=== PATIENT | male | born 1960 | race Caucasian/White ===

== ENCOUNTER 2020-08-25 21:18 | Inpatient (IN) ==
[2020-08-25] MEDS ORDERED: SODIUM CHLORIDE 0.9% 1000ML 1,000 ML IV STA (22:05)
[2020-08-25] MEDS ORDERED: ASPIRIN CHEW 324 MG PO STA (22:05)
[2020-08-25 22:16] LABS: Basophils # (auto) 0.02 K/uL (0-0.2); Basophils % (auto) 0.2 %; Eosinophils # (auto) 0.19 K/uL (0-0.5); Eosinophils % (auto) 2.3 %; Hematocrit (blood only) 47.8 % (42-52); Hemoglobin 16.6 g/dL (14.0-18.0); Immature Granulocytes # (auto) 0.03 K/uL (0.00-0.02); Immature Granulocytes % (auto) 0.4 %; Lymphocytes # (auto) 2.19 K/uL (1.2-3.4); Lymphocytes % (auto) 26.5 %; Mean Corpuscular Hemoglobin 34.4 pg (25-34); Mean Corpuscular Hgb Conc 34.7 g/dL (32-36); Mean Platelet Volume 11.5 fL (7.4-10.4); Monocytes % (auto) 7.3 %; Neutrophils # (auto) 5.22 K/uL (1.4-6.5); Neutrophils % (auto) 63.3 %; Platelet Count 210 K/uL (130-400); RDW Coefficient of Variation 13.7 % (11.5-14.5); RDW Standard Deviation 49.2 fL (36.4-46.3); Red Blood Count 4.83 M/uL (4.7-6.1); White Blood Count 8.25 K/uL (4.8-10.8)
[2020-08-25 22:32] LABS: Blood Urea Nitrogen 18 mg/dl (7-18); Calcium 8.7 mg/dl (8.5-10.1); Carbon Dioxide 22 mmol/L (21-32); Chloride 102 mmol/L (98-107); Est GFR (African American) 95.4 ml/min; Est GFR (Non-African American) 82.3 ml/min; Glucose 153 mg/dl (70-99); Lipase 149 U/L (73-393); Sodium 135 mmol/L (136-145); Troponin I < 0.015 ng/ml (0-0.045)
[2020-08-25 22:38] LABS: D Dimer 320 ug/L FEU (0-500); Partial Thromboplastin Time 26.5 Seconds (21.0-31.0)
[2020-08-25] MEDS ORDERED: dilTIAZem HCl 5 MG/ML 5 ML VIAL IV ONE (22:47)
[2020-08-25 22:48] LABS: Prothrombin Time 10.2 Seconds (9.0-12.0)
[2020-08-25] MEDS ORDERED: STAT IV Infusion **Titration per Protocol STA (22:52)
[2020-08-25] MEDS ORDERED: dilTIAZem HCL 125 MG in DEXTROSE 5% 100 ML IV SCH (23:00)
[2020-08-25 23:27] LABS: Potassium 3.7 mmol/L (3.5-5.1)
[2020-08-25] MEDS ORDERED: SODIUM CHLORIDE 0.9% 1000ML 1,000 ML IV SCH (23:44)
[2020-08-25] MEDS ORDERED: POTASSIUM CHLORIDE CRTAB 20 MEQ TABCR PO STA (23:45)
--- NOTE | 2020-08-25 23:47 | History & Physical Report ---
Date of Service August 25, 2020 Assessment & Plan (1) Atrial fibrillation with RVR: New onset atrial fibrillation with RVR- The patient will be admitted to telemetry for serial cardiac enzymes, serial EKG's, cardiac rhythm monitoring and a 2-D echocardiogram with Dopplers. Given a total of 2 L normal saline. Given Klor-Con 40 mEq p.o. Given magnesium sulfate 2 g IV Given metoprolol succinate 25 mg p.o. x1 in the ED and then 25 mg p.o. every morning Follow serial BMP and magnesium levels Patient did convert to normal sinus rhythm Patient and would like him seen by cardiology Dr. Albright Present on Admission?: Yes (2) Dehydration: Significantly improved after 2 L normal saline Present on Admission?: Yes (3) Hyperglycemia: Glucose 153 upon admission. Check hemoglobin A1c and a fasting lipid panel Present on Admission?: Yes (4) Hypomagnesemia: Replacing with IV as noted above Present on Admission?: Yes History of Present Illness Chief Complaint: The patient presents to the emergency department with left parasternal nonradiating chest discomfort that began suddenly around 730 this evening while at rest. Primary Care Provider: NO PCP The patient is a 60-year-old male who does not routinely seek medical care, who presents to the emergency department with symptoms as noted above. In the emergency department, patient was found to be in atrial fibrillation with RVR, and was given Cardizem 25 mg IV bolus, normal saline 1 L bolus. He was then referred for evaluation for admission. Allergies Allergy/AdvReac Type Severity Reaction Status Date / Time [id number] Allergy Unknown Uncoded 10/02/02 19:17 Home Medications Medication Instructions Recorded Confirmed Type ibuprofen 600 mg PO Q6H PRN 08/25/20 08/25/20 History melatonin 5 mg PO HS PRN 08/25/20 08/25/20 History Past Med/Surg History Medical History (Updated 08/26/20 @ 03:18 by Sathish Bethea MD) No pertinent family history No pertinent past medical history Surgical History (Updated 08/26/20 @ 01:14 by Manuel Hess) No pertinent past surgical history Social History (Updated 08/26/20 @ 01:21 by Manuel Hess) Smoking Status: Former smoker Cigarettes Per Day: 20; Second Hand Exposure: Yes; Do You Dip or Chew Tobacco: No; Tobacco Cessation Education Requested by Patient: No Hx Alcohol Use: Yes Alcohol type: beer Alcohol Intake Frequency Comment: 6 beers/day Hx Substance Use: No Preferred Language: Wolof Communication Ability: Effective [employer] Required: No Beliefs That Will Affect Care: None Current Living Situation: Spouse Other Information That Helps Us Care for You: No Feels Safe at Home: Yes Safety Concerns: Feels Safe At This Time Assistive Devices: Glasses Review of Systems Review of Systems: The patient denies palpitations, shortness of breath, dyspnea on exertion, cough, lower extremity swelling, sore throat, fevers, chills, sweats, weight change, fatigue, nausea, vomiting, diarrhea , constipation, abdominal pain, pelvic pain, blood in urine or stool, dysuria, urinary frequency or urgency, lightheadedness, dizziness, headache, memory loss, loss of consciousness, rash, abnormal bruising or bleeding, imbalance, focal or generalized weakness, numbness or tingling in arms or legs, generalized arthralgias or myalgias, back or neck pain, or night sweats. The review of systems is otherwise negative other than for that already noted above, and at least 10 systems have been reviewed. Physical Exam Physical Exam: The patient is awake, alert and oriented 3, well developed and well nourished, normocephalic and atraumatic, lying in bed and in no acute distress. HEENT--PERRL, EOMI, mucous membranes and oropharynx dry. Neck--supple. No JVD. No bruits. Thyroid normal, trachea midline, no adenopathy. Heart--irregularly irregular. No murmurs, rubs or gallops. Lungs--clear bilaterally, no respiratory distress, no accessory muscle use. Abdomen--normal bowel sounds and soft. Nontender. Nondistended. Morbidly obese Extremities--no cyanosis or clubbing. No edema. Dermatologic--normal skin turgor, normal color, no abnormal lymph nodes, no rash. Neurologic--cranial nerves II through XII grossly intact. Rheumatologic--normal range of motion. Psychiatric--normal affect. Results & Data Results & Data ([facility]) Vital Signs (Past 12 Hours) Vital Signs Temp Pulse Pulse Resp BP BP Pulse Ox 08/25/20 23:18 115 H 20 116/64 92 08/25/20 23:01 124 H 16 98/66 L 93 08/25/20 22:49 140 H 27 H 138/91 93 08/25/20 22:31 136 H 21 147/57 H 94 08/25/20 22:30 147 H 23 94 08/25/20 22:20 137 H 26 H 93 08/25/20 22:10 151 H 23 92 08/25/20 22:01 141 H 24 92 08/25/20 22:00 141 H 16 131/75 91 08/25/20 21:50 142 H 19 95 08/25/20 21:41 145 H 23 127/86 94 08/25/20 21:40 151 H 24 94 08/25/20 21:34 147 H 23 08/25/20 21:21 98.4 F 122 H 19 118/66 91 Laboratory Results Laboratory Results WBC 8.25 K/uL (4.8-10.8) 08/25/20 21:39 RBC 4.83 M/uL (4.7-6.1) 08/25/20 21:39 Hgb 16.6 g/dL (14.0-18.0) 08/25/20 21:39 Hct 47.8 % (42-52) 08/25/20 21:39 MCV 99.0 fL (80-100) 08/25/20 21:39 MCH 34.4 pg (25-34) H 08/25/20 21:39 MCHC 34.7 g/dL (32-36) 08/25/20 21:39 RDW Std Deviation 49.2 fL (36.4-46.3) H 08/25/20 21:39 RDW Coeff of Yaima 13.7 % (11.5-14.5) 08/25/20 21:39 Plt Count 210 K/uL (130-400) 08/25/20 21:39 MPV 11.5 fL (7.4-10.4) H 08/25/20 21:39 Immature Gran % (Auto) 0.4 % 08/25/20 21:39 Neut % (Auto) 63.3 % 08/25/20 21:39 Lymph % (Auto) 26.5 % 08/25/20 21:39 [place] % (Auto) 7.3 % 08/25/20 21:39 Eos % (Auto) 2.3 % 08/25/20 21:39 Baso % (Auto) 0.2 % 08/25/20 21:39 Neut # (Auto) 5.22 K/uL (1.4-6.5) 08/25/20 21:39 Lymph # (Auto) 2.19 K/uL (1.2-3.4) 08/25/20 21:39 [place] # (Auto) 0.60 K/uL (0.11-0.59) H 08/25/20 21:39 Eos # (Auto) 0.19 K/uL (0-0.5) 08/25/20 21:39 Baso # (Auto) 0.02 K/uL (0-0.2) 08/25/20 21:39 Immature Gran # (Auto) 0.03 K/uL (0.00-0.02) H 08/25/20 21:39 PT 10.2 Seconds (9.0-12.0) 08/25/20 21:39 INR 1.0 (0.9-1.1) 08/25/20 21:39 APTT 26.5 Seconds (21.0-31.0) 08/25/20 21:39 PTT Ratio 1.0 08/25/20 21:39 D-Dimer 320 ug/L FEU (0-500) 08/25/20 21:39 Sodium 135 mmol/L (136-145) L 08/25/20 21:39 Potassium 3.7 mmol/L (3.5-5.1) 08/25/20 22:39 Chloride 102 mmol/L (98-107) 08/25/20 21:39 Carbon Dioxide 22 mmol/L (21-32) 08/25/20 21:39 Anion Gap 11.0 (3-11) 08/25/20 21:39 BUN 18 mg/dl (7-18) 08/25/20 21:39 Creatinine 0.98 mg/dl (0.6-1.4) 08/25/20:39 Est Cr Clr Drug Dosing 96.0 ml/min 08/25/20 21:39 Est GFR ( Amer) 95.4 ml/min 08/25/20 21:39 Est GFR (Non-Af Amer) 82.3 ml/min 08/25/20 21:39 BUN/Creatinine Ratio 18.0 (10-20) 08/25/20 21:39 Glucose 153 mg/dl (70-99) H 08/25/20 21:39 Calcium 8.7 mg/dl (8.5-10.1) 08/25/20 21:39 Magnesium Cancelled 08/25/20 23:33 Total Bilirubin Cancelled 08/25/20 23:33 Direct Bilirubin Cancelled 08/25/20 23:33 AST Cancelled 08/25/20 23:33 ALT Cancelled 08/25/20 23:33 Alkaline Phosphatase Cancelled 08/25/20 23:33 Troponin I < 0.015 ng/ml (0-0.045) 08/25/20 21:39 Total Protein Cancelled 08/25/20 23:33 Albumin Cancelled 08/25/20 23:33 Lipase 149 U/L (73-393) 08/25/20 21:39 Specimen Hemolysis 08/25/20 22:39 COVID-19 Eval Order Covid19 at [facility] 08/26/20 00:00 SARS-CoV-2 (PCR) NEGATIVE (Negative) 08/26/20 00:00 Code Status & VTE Plan Code Status Full code VTE Prophylaxis Plan VTE Prophylaxis will be ordered: Yes PG Care Time/CCT Total # of Minutes Spent Total Time Spent with Patient: Total time spent is greater than 50% in coordi nation of care (as documented) at patient's floor/unit and/or counseling patient: Coding Level of Care Code 76207 Initial Inpt Care Lvl 3 Diagnoses Atrial fibrillation with RVR I48.91 Dehydration E86.0 Hyperglycemia R73.9 Hypomagnesemia E83.42
[2020-08-26] MEDS ORDERED: METOPROLOL SUCC 25MG EXT REL TAB PO STA (00:04)
[2020-08-26] MEDS ORDERED: METOPROLOL TARTRATE 1 MG/ML VIAL IV PRN (00:04)
[2020-08-26 00:30] LABS: Albumin Level 3.4 gm/dl (3.4-5.0); Bilirubin,Total 0.2 mg/dl (0.2-1); Magnesium 1.7 mg/dl (1.8-2.4); Total Protein 6.6 gm/dl (6.4-8.2)
--- NOTE | 2020-08-26 01:10 | Emergency Department Note ---
History of Present Illness General Chief Complaint: Chest Pain Stated Complaint: CHEST PAINS Time Seen by Provider: 08/25/20 22:05 History of Present Illness Provider Complaint: chest pain Time: 19:30 Duration: intermittent Onset: during rest Pain Location: substernal Pain Radiation: neck Severity: moderate Maximum Pain Intensity: 7 Current Pain Intensity: 7 Quality: + heaviness Relieved By: + nothing Exacerbated By: + nothing Context: no recent illness, no recent surgery, no recent immobilization, no recent travel, no trauma/injury, no new medications and no history of DVT/PE Associated symptoms: no nausea, no vomiting, no diaphoresis, no dyspnea, no syncope, no palpitations, no fever, no cough and no leg swelling Home Medications Medication Instructions Recorded Confirmed Type ibuprofen 600 mg PO Q6H PRN 08/25/20 08/25/20 History melatonin 5 mg PO HS PRN 08/25/20 08/25/20 History Allergies Allergy/AdvReac Type Severity Reaction Status Date / Time [id number] Allergy Unknown Uncoded 10/02/02 19:17 Past Med/Surg History Medical History (Updated 08/26/20 @ 01:24 by Manuel Hess) No pertinent family history No pertinent past medical history Surgical History (Updated 08/26/20 @ 01:14 by Manuel Hess) No pertinent past surgical history Social History (Updated 08/26/20 @ 01:21 by Manuel Hess) Smoking Status: Current every day smoker Hx Alcohol Use: Yes Alcohol type: beer Alcohol Intake Frequency Comment: 6 beers/day Feels Safe at Home: Yes Review of Systems A total of 10 systems reviewed and were otherwise negative Physical Exam Vital Signs Vital Signs - 24 hr 08/25/20 21:21 08/25/20 21:34 08/25/20 21:40 Temperature 36.9 C Temperature Source Temporal Artery Scan Pulse Rate 122 H 147 H 151 H Pulse Rate [Apical] Pulse Rate from SpO2 Sensor 150 H Pulse Rhythm [Apical] Respiratory Rate 19 23 24 Respiratory Effort / Characteristics Non-Labored Respiratory Depth Normal Blood Pressure 118/66 Blood Pressure [Right Arm] Blood Pressure Mean 83 Blood Pressure Mean [Right Arm] Blood Pressure Position [Right Arm] Pulse Oximetry 91 94 Oxygen Delivery Method Room Air Sepsis Recent Fever Within 48 Hours No Sepsis New/Unexplained Change in Mental Status N/A Sepsis Action Taken by Nursing No Action Required 08/25/20 21:41 08/25/20 21:50 08/25/20 22:00 Temperature Temperature Source Pulse Rate 145 H 142 H 141 H Pulse Rate [Apical] Pulse Rate from SpO2 Sensor 118 H 134 H 130 H Pulse Rhythm [Apical] Respiratory Rate 23 19 16 Respiratory Effort / Characteristics Respiratory Depth Blood Pressure 127/86 131/75 Blood Pressure [Right Arm] Blood Pressure Mean 99 93 Blood Pressure Mean [Right Arm] Blood Pressure Position [Right Arm] Pulse Oximetry 94 95 91 Oxygen Delivery Method Sepsis Recent Fever Within 48 Hours Sepsis New/Unexplained Change in Mental Status Sepsis Action Taken by Nursing 08/25/20 22:01 08/25/20 22:10 08/25/20 22:20 Temperature Temperature Source Pulse Rate 141 H 151 H 137 H Pulse Rate [Apical] Pulse Rate from SpO2 Sensor 97 H 117 H 122 H Pulse Rhythm [Apical] Respiratory Rate 24 23 26 H Respiratory Effort / Characteristics Respiratory Depth Blood Pressure Blood Pressure [Right Arm] Blood Pressure Mean Blood Pressure Mean [Right Arm] Blood Pressure Position [Right Arm] Pulse Oximetry 92 92 93 Oxygen Delivery Method Sepsis Recent Fever Within 48 Hours Sepsis New/Unexplained Change in Mental Status Sepsis Action Taken by Nursing 08/25/20 22:27 08/25/20 22:30 08/25/20 22:31 Temperature Temperature Source Pulse Rate 147 H 136 H Pulse Rate [Apical] Pulse Rate from SpO2 Sensor 101 H Pulse Rhythm [Apical] Respiratory Rate 23 21 Respiratory Effort / Characteristics Respiratory Depth Normal Blood Pressure 147/57 H Blood Pressure [Right Arm] Blood Pressure Mean 87 Blood Pressure Mean [Right Arm] Blood Pressure Position [Right Arm] Pulse Oximetry 94 94 Oxygen Delivery Method Room Air Sepsis Recent Fever Within 48 Hours Sepsis New/Unexplained Change in Mental Status Sepsis Action Taken by Nursing 08/25/20 22:49 08/25/20 23:01 08/25/20 23:18 Temperature Temperature Source Pulse Rate 140 H 124 H 115 H Pulse Rate [Apical] 115 H Pulse Rate from SpO2 Sensor Pulse Rhythm [Apical] Respiratory Rate 27 H 16 20 Respiratory Effort / Characteristics Respiratory Depth Blood Pressure 138/91 98/66 L 116/64 Blood Pressure [Right Arm] 116/64 Blood Pressure Mean 106 76 81 Blood Pressure Mean [Right Arm] 81 Blood Pressure Position [Right Arm] Standing Pulse Oximetry 93 93 94 Oxygen Delivery Method Room Air Sepsis Recent Fever Within 48 Hours Sepsis New/Unexplained Change in Mental Status Sepsis Action Taken by Nursing 08/25/20 23:30 08/26/20 00:00 08/26/20 00:31 Temperature Temperature Source Pulse Rate 125 H 134 H 128 H Pulse Rate [Apical] Pulse Rate from SpO2 Sensor Pulse Rhythm [Apical] Respiratory Rate 21 21 20 Respiratory Effort / Characteristics Respiratory Depth Blood Pressure 106/86 132/80 88/50 L Blood Pressure [Right Arm] Blood Pressure Mean 92 97 62 Blood Pressure Mean [Right Arm] Blood Pressure Position [Right Arm] Pulse Oximetry 93 93 93 Oxygen Delivery Method Room Air Sepsis Recent Fever Within 48 Hours Sepsis New/Unexplained Change in Mental Status Sepsis Action Taken by Nursing 08/26/20 00:47 08/26/20 01:09 Temperature Temperature Source Pulse Rate Pulse Rate [Apical] 136 H 74 Pulse Rate from SpO2 Sensor Pulse Rhythm [Apical] Regular Respiratory Rate 20 Respiratory Effort / Characteristics Respiratory Depth Blood Pressure Blood Pressure [Right Arm] 99/64 L 118/73 Blood Pressure Mean Blood Pressure Mean [Right Arm] 75 88 Blood Pressure Position [Right Arm] Pulse Oximetry 92 Oxygen Delivery Method Room Air Sepsis Recent Fever Within 48 Hours Sepsis New/Unexplained Change in Mental Status Sepsis Action Taken by Nursing Physical Exam GENERAL: He is oriented to person, place, and time. He appears well-developed and well-nourished. He does not appear distressed. HENT: Exam performed. - Head: Normocephalic and atraumatic. - Right Ear: External ear normal. No mastoid tenderness. - Left Ear: External ear normal. No mastoid tenderness. - Mouth/Throat: The oropharynx is clear and moist. No trismus in the jaw. No dental abscesses or uvula swelling. No oropharyngeal exudate or tonsillar abscesses. EYES: Conjunctivae and EOM are normal. Pupils are equal, round, and reactive to light. Right eye exhibits no discharge. Left eye exhibits no discharge. No scleral icterus. NECK: Normal range of motion. Neck supple. No JVD present. No spinous process tenderness present. No carotid bruit present. No rigidity. No tracheal deviation and normal range of motion present. No Brudzinski's sign and no Kernig's sign noted. CV: Tachycardic rate, irregular rhythm, normal heart sounds and intact distal pulses. There is no peripheral edema. Palpable radial pulses bue. PULM/CHEST: Effort normal and breath sounds normal. No respiratory distress. No stridor. He has no wheezes. He has no rales. - Chest Wall: He exhibits no tenderness. ABD: The abdomen is soft. Bowel sounds are normal. He has no distension. No mass is present. There is no tenderness. There is no rebound, no guarding, no Reyes's sign and no tenderness at McBurney's point. Rovsig negative. MUSC/SKEL: Normal range of motion. There is no peripheral edema, tenderness or deformity. LYMPH: No cervical adenopathy. NEURO: He is alert and oriented to person, place, and time. He has normal strength. No cranial nerve deficit or sensory deficit. Coordination and gait normal. GCS eye subscore is 4. GCS verbal subscore is 5. GCS motor subscore is 6. Cerebellar tests wnl. SKIN: Skin is warm and dry. He is not diaphoretic. PSYCH: He has a normal mood and affect. Behavior is normal. Judgment and thought content normal. Course Course 2249: The patient was evaluated in room B4. A complete history and physical exam was performed. Patient was seen during a period of extremely high volume and acuity during the COVID- pandemic. Triage protocols were initiated. Cardiac monitoring: An order was placed for continuous cardiac monitoring. The monitor shows a rate of 130-150 with atrial fibrillation rhythm Cardizem 20 mg IV bolus was given which improved the patient's ventricular rate. Patient was started on Cardizem drip. CHADS2 score less than 2. Aspirin given to the patient. Patient has no history of atrial fibrillation and states that he has not seen a doctor in more than 12 years. [facility]. Administered Medications Discontinued Medications Aspirin (Aspirin Chew 324 Mg) 324 mg PO NOW STA Stop: 08/25/20 22:06 Last Admin: 08/25/20 22:27 Dose: 324 mg Documented by: [id number] Diltiazem HCl (Diltiazem Hcl 5 Mg/Ml 5 Ml Vial) Confirm Administered Dose 25 mg IV .STK-MED ONE Stop: 08/25/20 22:48 Last Increment: 08/25/20 22:55 Dose: 20 mg Documented by: [id number] Cosigned by: [id number] Sodium Chloride (Nss 1000ml) 1,000 mls @ 999 mls/hr IV .Q1H1M STA Stop: 08/25/20 23:05 Last Infusion: 08/25/20 23:27 Dose: 0 mls/hr Documented by: [id number] Admin: 08/25/20 22:27 Dose: 999 mls/hr Documented by: [id number] Diltiazem HCl 125 mg/ Dextrose 125 mls @ 5 mls/hr IV .Q24H CHRISTOPHER; Protocol Stop: 09/24/20 22:59 Last Admin: 08/25/20 23:20 Dose: Not Given Documented by: [id number] Sodium Chloride (Nss 1000ml) 1,000 mls @ 999 mls/hr IV .Q1H1M CHRISTOPHER Stop: 08/26/20 00:44 Last Admin: 08/26/20 00:03 Dose: 999 mls/hr Documented by: [id number] Metoprolol Succinate (Metoprolol Succ 25mg Ext Rel Tab) 25 mg PO NOW STA Stop: 08/26/20 00:05 Last Admin: 08/26/20 00:22 Dose: 25 mg Documented by: [id number] Miscellaneous (Stat Iv Infusion Titration Per Protocol) 1 ea N/A NOW STA Stop: 08/25/20 22:53 Last Admin: 08/25/20 23:20 Dose: Not Given Documented by: [id number] Potassium Chloride (Potassium Chloride Crtab 20 Meq Tabcr) 40 meq PO NOW STA Stop: 08/25/20 23:46 Last Admin: 08/26/20 00:11 Dose: 40 meq Documented by: [id number] Medical Decision Making Laboratory Data Result diagrams: 08/25/20 21:39 08/25/20 22:39 Labs: Lab Results 08/25/20 08/25/20 08/25/20 Range/Units 21:39 21:39 21:39 WBC 8.25 (4.8-10.8) K/uL RBC 4.83 (4.7-6.1) M/uL Hgb 16.6 (14.0-18.0) g/dL Hct 47.8 (42-52) % MCV 99.0 (80-100) fL MCH 34.4 H (25-34) pg MCHC 34.7 (32-36) g/dL RDW Std Deviation 49.2 H (36.4-46.3) fL RDW Coeff of Yaima 13.7 (11.5-14.5) % Plt Count 210 (130-400) K/uL MPV 11.5 H (7.4-10.4) fL Immature Gran % (Auto) 0.4 % Neut % (Auto) 63.3 % Lymph % (Auto) 26.5 % Day % (Auto) 7.3 % Eos % (Auto) 2.3 % Baso % (Auto) 0.2 % Neut # (Auto) 5.22 (1.4-6.5) K/uL Lymph # (Auto) 2.19 (1.2-3.4) K/uL Day # (Auto) 0.60 H (0.11-0.59) K/uL Eos # (Auto) 0.19 (0-0.5) K/uL Baso # (Auto) 0.02 (0-0.2) K/uL Immature Gran # (Auto) 0.03 H (0.00-0.02) K/uL PT 10.2 (9.0-12.0) Seconds INR 1.0 (0.9-1.1) APTT 26.5 (21.0-31.0) Seconds PTT Ratio 1.0 D-Dimer 320 (0-500) ug/L FEU Sodium 135 L (136-145) mmol/L Potassium (3.5-5.1) mmol/L Chloride 102 (98-107) mmol/L Carbon Dioxide 22 (21-32) mmol/L Anion Gap 11.0 (3-11) BUN 18 (7-18) mg/dl Creatinine 0.98 (0.6-1.4) mg/dl Est Cr Clr Drug Dosing 96.0 ml/min Est GFR ( Amer) 95.4 ml/min Est GFR (Non-Af Amer) 82.3 ml/min BUN/Creatinine Ratio 18.0 (10-20) Glucose 153 H (70-99) mg/dl Calcium 8.7 (8.5-10.1) mg/dl Magnesium (1.8-2.4) mg/dl Total Bilirubin (0.2-1) mg/dl Direct Bilirubin (0-0.2) mg/dl AST (15-37) U/L ALT (12-78) U/L Alkaline Phosphatase (45-117) U/L Troponin I < 0.015 (0-0.045) ng/ml Total Protein (6.4-8.2) gm/dl Albumin (3.4-5.0) gm/dl Lipase 149 (73-393) U/L Specimen Hemolysis COVID-19 Eval Order SARS-CoV-2 (PCR) (Negative) 08/25/20 08/25/20 08/26/20 Range/Units 22:39 23:33 00:00 WBC (4.8-10.8) K/uL RBC (4.7-6.1) M/uL Hgb (14.0-18.0) g/dL Hct (42-52) % MCV (80-100) fL MCH (25-34) pg MCHC (32-36) g/dL RDW Std Deviation (36.4-46.3) fL RDW Coeff of Yaima (11.5-14.5) % Plt Count (130-400) K/uL MPV (7.4-10.4) fL Immature Gran % (Auto) % Neut % (Auto) % Lymph % (Auto) % Day % (Auto) % Eos % (Auto) % Baso % (Auto) % Neut # (Auto) (1.4-6.5) K/uL Lymph # (Auto) (1.2-3.4) K/uL Day # (Auto) (0.11-0.59) K/uL Eos # (Auto) (0-0.5) K/uL Baso # (Auto) (0-0.2) K/uL Immature Gran # (Auto) (0.00-0.02) K/uL PT (9.0-12.0) Seconds INR (0.9-1.1) APTT (21.0-31.0) Seconds PTT Ratio D-Dimer (0-500) ug/L FEU Sodium (136-145) mmol/L Potassium 3.7 (3.5-5.1) mmol/L Chloride (98-107) mmol/L Carbon Dioxide (21-32) mmol/L Anion Gap (3-11) BUN (7-18) mg/dl Creatinine (0.6-1.4) mg/dl Est Cr Clr Drug Dosing ml/min Est GFR ( Amer) ml/min Est GFR (Non-Af Amer) ml/min BUN/Creatinine Ratio (10-20) Glucose (70-99) mg/dl Calcium (8.5-10.1) mg/dl Magnesium 1.7 L Cancelled (1.8-2.4) mg/dl Total Bilirubin 0.2 Cancelled (0.2-1) mg/dl Direct Bilirubin Cancelled (0-0.2) mg/dl AST 23 Cancelled (15-37) U/L ALT 47 Cancelled (12-78) U/L Alkaline Phosphatase 70 Cancelled (45-117) U/L Troponin I (0-0.045) ng/ml Total Protein 6.6 Cancelled (6.4-8.2) gm/dl Albumin 3.4 Cancelled (3.4-5.0) gm/dl Lipase (73-393) U/L Specimen Hemolysis COVID-19 Eval Order Covid19 at [facility] SARS-CoV-2 (PCR) (Negative) 08/26/20 Range/Units 00:00 WBC (4.8-10.8) K/uL RBC (4.7-6.1) M/uL Hgb (14.0-18.0) g/dL Hct (42-52) % MCV (80-100) fL MCH (25-34) pg MCHC (32-36) g/dL RDW Std Deviation (36.4-46.3) fL RDW Coeff of Yaima (11.5-14.5) % Plt Count (130-400) K/uL MPV (7.4-10.4) fL Immature Gran % (Auto) % Neut % (Auto) % Lymph % (Auto) % Day % (Auto) % Eos % (Auto) % Baso % (Auto) % Neut # (Auto) (1.4-6.5) K/uL Lymph # (Auto) (1.2-3.4) K/uL Day # (Auto) (0.11-0.59) K/uL Eos # (Auto) (0-0.5) K/uL Baso # (Auto) (0-0.2) K/uL Immature Gran # (Auto) (0.00-0.02) K/uL PT (9.0-12.0) Seconds INR (0.9-1.1) APTT (21.0-31.0) Seconds PTT Ratio D-Dimer (0-500) ug/L FEU Sodium (136-145) mmol/L Potassium (3.5-5.1) mmol/L Chloride (98-107) mmol/L Carbon Dioxide (21-32) mmol/L Anion Gap (3-11) BUN (7-18) mg/dl Creatinine (0.6-1.4) mg/dl Est Cr Clr Drug Dosing ml/min Est GFR ( Amer) ml/min Est GFR (Non-Af Amer) ml/min BUN/Creatinine Ratio (10-20) Glucose (70-99) mg/dl Calcium (8.5-10.1) mg/dl Magnesium (1.8-2.4) mg/dl Total Bilirubin (0.2-1) mg/dl Direct Bilirubin (0-0.2) mg/dl AST (15-37) U/L ALT (12-78) U/L Alkaline Phosphatase (45-117) U/L Troponin I (0-0.045) ng/ml Total Protein (6.4-8.2) gm/dl Albumin (3.4-5.0) gm/dl Lipase (73-393) U/L Specimen Hemolysis COVID-19 Eval Order SARS-CoV-2 (PCR) NEGATIVE (Negative) Imaging Data Chest x-ray: My impression: Chest x-ray negative. Airway clear. No pneumothorax. No consolidation. No cardiomegaly or cephalization.. No free air under the diaphragm. No fractures of the skeletal structures. ECG Data Additional Comments: EKG #1 at 2123: Atrial fibrillation with a rate of 145. QRS and QTc intervals within normal limits. No ST elevation or ST depression. EKG #2 at 2255 status post 20 mg IV Cardizem bolus: Atrial fibrillation with rate of 118. QRS and QTc intervals within normal limits. No ST elevation or ST depression. MDM Narrative The patient was evaluated in room B4. A complete history and physical exam was performed. Patient was seen during a period of extremely high volume and acuity during the COVID- pandemic. Triage protocols were initiated. Cardiac monitoring: An order was placed for continuous cardiac monitoring. The monitor shows a rate of 130-150 with atrial fibrillation rhythm Cardizem 20 mg IV bolus was given which improved the patient's ventricular rate. Patient was started on Cardizem drip. CHADS2 score less than 2. Aspirin given to the patient. Patient has no history of atrial fibrillation and states that he has not seen a doctor in more than 12 years. [facility]. Impression & Plan Atrial fibrillation with RVR Critical Care Time Critical Care Time: Yes Total Critical Care Time: 45 I have personally spent greater than 45 minutes of critical care time in the direct management of this patient. This includes bedside care, interpretation of diagnostic studies, and testing, discussion with consultants, patient, and family members, and other required patient management activities. This 45 minutes is in excess of all separately billable procedures. Discharge Plan Visit Data Chief Complaint: Chest Pain Stated Complaint: CHEST PAINS ED Provider: Manuel Hess Discharge Problem: Atrial fibrillation with RVR Patient Disposition: Admitted As Inpatient Forms Stand Alone Forms: My [facility] Prescriptions Prescriptions: No Action ibuprofen 200 mg Tablet 600 mg PO Q6H PRN (Reason: Pain) RF: 0 melatonin 5 mg Tablet 5 mg PO HS PRN (Reason: Sleep) RF: 0 Referrals Referrals: PCP,NO [Primary Care Provider] -
[2020-08-26] MEDS ORDERED: MELATONIN 3 MG TAB PO PRN (02:28)
[2020-08-26] MEDS ORDERED: ACETAMINOPHEN 325 MG TAB PO PRN (02:28)
[2020-08-26] MEDS ORDERED: ONDANSETRON INJ 2 MG/ML 2 ML VIAL IV PRN (02:28)
[2020-08-26] MEDS: MAGNESIUM SULFATE / D5W 1 GM/100 ML BAG IV SCH ×2 (04:20→06:24)
[2020-08-26 06:31] LABS: Estimated Average Glucose 123 mg/dl; Hemoglobin A1C 5.9 % (4.5-5.6)
[2020-08-26 06:52] LABS: Chol HDL Ratio 7; Cholesterol 175 mg/dl (0-200); HDL Cholesterol 27 mg/dl; Triglycerides 514 mg/dl (0-150)
--- NOTE | 2020-08-26 08:36 | XRay Report ---
XR chest 1V portable HISTORY: Atypical Chest Pain COMPARISON: None. FINDINGS: Cardiac silhouette is mildly enlarged. There are low lung volumes. No pneumothorax. No pleu ral effusions. There is mild central pulmonary vascular congestion without overt edema. No focal lung consolidations to suggest pneumonia. IMPRESSION: Mild cardiomegaly with mild congestive change. ACT 112: Negative or not required by law. Electronically signed by: Christopher Eckert M.D. 08/26/2020 8:35 AM
[2020-08-26] MEDS ORDERED: ASPIRIN 81 MG ECTAB PO SCH (09:00)
[2020-08-26] MEDS ORDERED: METOPROLOL SUCC 25MG EXT REL TAB PO SCH (09:00)
--- NOTE | 2020-08-26 11:01 | XCELERA ---
[id number]
--- NOTE | 2020-08-26 12:01 | Cardiology Consultation ---
Date of Consultation August 26, 2020 Assessment & Plan (1) Atrial fibrillation with RVR: The etiology of his atrial fibrillation is unclear. While he does not have a diagnosis of hypertension, he has not actually seen a doctor in several years. It will be important to monitor his blood pressure going forward. He certainly could have occult sleep apnea. Outpatient overnight oximetry would be a reasonable screening. He does have heavy alcohol use and this could contribute to episodes of atrial fibrillation as well. His chads Vasc score is 0. Do not believe he requires systemic anticoagulation currently, but will need to monitor him for the development of additional risk factors. I do not think he benefits from being on a daily medication for prevention either. Hopefully will continue to have infrequent and relatively brief episodes. We can see him in the outpatient setting and determine if any additional treatment is required based on recurrent symptoms. (2) Mitral regurgitation: Mild to moderate on echocardiography. We can monitor this over time. History of Present Illness Reason for Consultation: Atrial fibrillation Requesting Physician: Lake Attending Physician: Emily Livingston MD History of Present Illness The patient is a 60-year-old gentleman without a known history of cardiac disease who presents to emergency room with symptoms of chest discomfort. The patient states that around 730 last evening he began to experience chest pressure in the upper precordium and neck. He attempted to change position become more comfortable but his symptoms persisted and he presented for evalua tion. He was noted to have atrial fibrillation and a high ventricular rate. He was administered diltiazem and eventually spontaneously converted to sinus rhythm. His symptoms seemed to resolve around that time frame. He did not report significant dizziness or lightheadedness. No associated dyspnea. He was not aware of palpitations. He has not had similar symptoms in the past. He appears to be an active individual who is a reformed [employer] work and routine work around the house. He works at [employer] as well. He has not report other symptoms associated with activity except some mild dyspnea on occasion. No exertional chest pain. Currently feeling well and anxious for discharge Allergies Allergy/AdvReac Type Severity Reaction Status Date / Time [id number] Allergy Unknown Uncoded 10/02/02 19:17 Home Medications Medication Instructions Recorded Confirmed Type ibuprofen 600 mg PO Q6H PRN 08/25/20 08/25/20 History melatonin 5 mg PO HS PRN 08/25/20 08/25/20 History Patient History Medical History No pertinent family history No pertinent past medical history Surgical History No pertinent past surgical history Social History Smoking Status: Former smoker Cigarettes Per Day: 20; Second Hand Exposure: Yes; Do You Dip or Chew Tobacco: No; Tobacco Cessation Education Requested by Patient: No Hx Alcohol Use: Yes Alcohol type: beer Alcohol Intake Frequency Comment: 6 beers/day Hx Substance Use: No Preferred Language: Zambian Communication Ability: Effective Jumpbasting Lining Baster Required: No Beliefs That Will Affect Care: None Current Living Situation: Spouse Other Information That Helps Us Care for You: No Feels Safe at Home: Yes Safety Concerns: Feels Safe At This Time Assistive Devices: None Review of Systems Review of Systems: All systems reviewed & are unremarkable except as noted in HPI & below Poor sleep hygiene overall. Snoring reported by his . No lower extremity edema. Physical Exam Physical Exam: The patient is alert and oriented. Mood and affect appeared normal. He answered all questions appropriately. HEENT: Pupils are equal and reactive to light and accommodation. Extraocular movements are intact. The sclerae are anicteric. Neuro: Cranial nerves intact Neck: Patient's neck is supple. He has palpable carotid pulses bilaterally without bruits on auscultation. There is no evidence of jugular venous disten tion. The thyroid is not enlarged. Lungs: Clear to auscultation bilaterally. He has good air movement without use of accessory muscles. No rales wheezes or rhonchi. Cardiac: Heart demonstrates a regular rate and rhythm. Normal S1 and S2. No murmurs on examination. Pulses: The patient has palpable radial pulses bilaterally that are equal in intensity Extremities: There was no evidence of hypoperfusion. There is no cyanosis or clubbing. There is no edema. Skin: I did not appreciate any rashes on examination today. Results & Data ([facility]) Vital Signs (Past 12 Hours) Vital Signs Temp Pulse Pulse Resp BP BP Pulse Ox 08/26/20 07:22 36.5 C 56 L 19 134/79 94 08/26/20 03:29 71 08/26/20 02:28 08/26/20 02:10 36.8 C 74 16 138/78 95 08/26/20 01:45 73 20 116/65 92 08/26/20 01:31 73 20 110/65 93 08/26/20 01:15 76 18 127/72 95 08/26/20 01:09 74 20 118/73 92 08/26/20 00:47 136 H 99/64 L 08/26/20 00:31 128 H 20 88/50 L 93 08/26/20 00:00 134 H 21 132/80 93 Pulse Ox 08/26/20 07:22 08/26/20 03:29 08/26/20 02:28 95 08/26/20 02:10 08/26/20 01:45 08/26/20 01:31 08/26/20 01:15 08/26/20 01:09 08/26/20 00:47 08/26/20 00:31 08/26/20 00:00 Laboratory Results Abnormal Lab Results 08/25/20 08/25/20 08/25/20 21:39 21:39 21:39 WBC 8.25 RBC 4.83 Hgb 16.6 Hct 47.8 MCV 99.0 MCH 34.4 H MCHC 34.7 RDW Std Deviation 49.2 H RDW Coeff of Yaima 13.7 Plt Count 210 MPV 11.5 H Immature Gran % (Auto) 0.4 Neut % (Auto) 63.3 Lymph % (Auto) 26.5 [place]ata[place]oula % (Auto) 7.3 Eos % (Auto) 2.3 Baso % (Auto) 0.2 Neut # (Auto) 5.22 Lymph # (Auto) 2.19 [place]oula # (Auto) 0.60 H Eos # (Auto) 0.19 Baso # (Auto) 0.02 Immature Gran # (Auto) 0.03 H PT 10.2 INR 1.0 APTT 26.5 PTT Ratio 1.0 D-Dimer 320 Sodium 135 L Potassium Chloride 102 Carbon Dioxide 22 Anion Gap 11.0 BUN 18 Creatinine 0.98 Est Cr Clr Drug Dosing 96.0 Est GFR ( Amer) 95.4 Est GFR (Non-Af Amer) 82.3 BUN/Creatinine Ratio 18.0 Glucose 153 H Estimat Average Glucose Hemoglobin A1c Calcium 8.7 Magnesium Total Bilirubin Direct Bilirubin AST ALT Alkaline Phosphatase Troponin I < 0.015 Total Protein Albumin Triglycerides Cholesterol LDL Cholesterol, Calc VLDL Cholesterol, Calc HDL Cholesterol Cholesterol/HDL Ratio Lipase 149 Specimen Hemolysis COVID-19 Eval Order SARS-CoV-2 (PCR) 08/25/20 08/25/20 08/26/20 22:39 23:33 00:00 WBC RBC Hgb Hct MCV MCH MCHC RDW Std Deviation RDW Coeff of Yaima Plt Count MPV Immature Gran % (Auto) Neut % (Auto) Lymph % (Auto) [place]oula % (Auto) Eos % (Auto) Baso % (Auto) Neut # (Auto) Lymph # (Auto) [place]oula # (Auto) Eos # (Auto) Baso # (Auto) Immature Gran # (Auto) PT INR APTT PTT Ratio D-Dimer Sodium Potassium 3.7 Chloride Carbon Dioxide Anion Gap BUN Creatinine Est Cr Clr Drug Dosing Est GFR ( Amer) Est GFR (Non-Af Amer) BUN/Creatinine Ratio Glucose Estimat Average Glucose Hemoglobin A1c Calcium Magnesium 1.7 L Cancelled Total Bilirubin 0.2 Cancelled Direct Bilirubin Cancelled AST 23 Cancelled ALT 47 Cancelled Alkaline Phosphatase 70 Cancelled Troponin I Total Protein 6.6 Cancelled Albumin 3.4 Cancelled Triglycerides Cholesterol LDL Cholesterol, Calc VLDL Cholesterol, Calc HDL Cholesterol Cholesterol/HDL Ratio Lipase Specimen Hemolysis COVID-19 Eval Order Covid19 at [facility] SARS-CoV-2 (PCR) 08/26/20 08/26/20 08/26/20 00:00 05:19 05:19 WBC RBC Hgb Hct MCV MCH MCHC RDW Std Deviation RDW Coeff of Yaima Plt Count MPV Immature Gran % (Auto) Neut % (Auto) Lymph % (Auto) [place]oula % (Auto) Eos % (Auto) Baso % (Auto) Neut # (Auto) Lymph # (Auto) [place]ata[place]oula # (Auto) Eos # (Auto) Baso # (Auto) Immature Gran # (Auto) PT INR APTT PTT Ratio D-Dimer Sodium Potassium Chloride Carbon Dioxide Anion Gap BUN Creatinine Est Cr Clr Drug Dosing Est GFR ( Amer) Est GFR (Non-Af Amer) BUN/Creatinine Ratio Glucose Estimat Average Glucose 123 Hemoglobin A1c 5.9 H Calcium Magnesium Total Bilirubin Direct Bilirubin AST ALT Alkaline Phosphatase Troponin I Total Protein Albumin Triglycerides 514 H Cholesterol 175 LDL Cholesterol, Calc VLDL Cholesterol, Calc HDL Cholesterol 27 Cholesterol/HDL Ratio 7 Lipase Specimen Hemolysis COVID-19 Eval Order SARS-CoV-2 (PCR) NEGATIVE Diagnostic Findings Chest x-ray obtained at the time admission not reveal acute cardiopulmonary process. Echocardiogram demonstrated preserved LV systolic function wall motion with mild left atrial enlargement and [id number] mitral regurgitation. Stage II diastolic dysfunction PG Care Time/CCT Total # of Minutes Spent Total Time Spent with Patient: Total time spent is greater than 50% in coordination of care (as documented) at patient's floor/unit and/or counseling patient: Coding Level of Care Code 93872 Office/OBS Consult Lvl 4 Diagnoses Atrial fibrillation with RVR I48.91 Mitral regurgitation I34.0
--- NOTE | 2020-08-26 13:25 | Discharge Summary ---
Date of Service August 26, 2020 Admission HPI Per Admitting Provider The patient is a 60-year-old male who does not routinely seek medical care, who presents to the emergency department with symptoms as noted above. In the emergency department, patient was found to be in atrial fibrillation with RVR, and was given Cardizem 25 mg IV bolus, normal saline 1 L bolus. He was then referred for evaluation for admission. Principal Diagnosis Rapid atrial fibrillation Discharge Exam Constitutional WD/WN, vitals as above + obese Eyes + anicteric sclerae ENMT Ears: no hearing impairment Neck trachea midline, no thyromegaly Respiratory normal respiratory effort, lungs clear to auscultation Cardiovascular RRR, no murmur, no edema Chest (Breasts) Chest: normal inspection of chest Gastrointestinal (Abdomen) normal bowel sounds, soft, nontender, no hepatosplenomegaly Musculoskeletal Extremities: extremities normal to inspection; no cyanosis and no clubbing Skin no rashes, warm and dry Neurologic moves all extremities and awake; no focal motor deficits Psychiatric A+Ox3, euthymic affect Lymphatic no lymphedema Discharge Data Allergies Allergy/AdvReac Type Severity Reaction Status Date / Time [id number] Allergy Unknown Uncoded 10/02/02 19:17 Consultations 08/25/20 22:56 ED Decision to Admit Stat 08/26/20 02:28 Consult Cardiology Routine Ordered Studies Chest X-Ray 08/25/20 22:05 XR chest 1V portable HISTORY: Atypical Chest Pain COMPARISON: None. FINDINGS: Cardiac silhouette is mildly enlarged. There are low lung volumes. No pneumothorax. No pleural effusions. There is mild central pulmonary vascular congestion without overt edema. No focal lung consolidations to suggest pneumonia. IMPRESSION: Mild cardiomegaly with mild congestive change. ACT 112: Negative or not required by law. Electronically signed by: Christopher Eckert M.D. 08/26/2020 8:35 AM ECHO Hospital Course (1) Atrial fibrillation with RVR: New onset atrial fibrillation with RVR-unclear cause but is a heavy EtOH user with 6-7 drinkes daily. ALso has great difficulty with sleep and needs eval for SOA as outpatient Converted on his own to NSR after total of 5 hours of Afib. Was given Toprol XL x 1 dose but had SB in the 50s and Cardiology did not recommend further meds to be continued at home CHADS score 0 but may have underlying HTN--> monitor as outpt and consider adding anticoag as outpt if develops HTN or otehr risk factors ECHO with preserved EF, mild-mod MR Apprecaite Cardio consultation Given Klor-Con 40 mEq p.o. Given magnesium sulfate 2 g IV -sleep study as outpt -advised cessation of all EtOH use or cut down to 1 drink daily F/u with Cardiology as outpt STable for dc to home (2) Dehydration: Significantly improved after 2 L normal saline may have contributed to Afib advised EtOH cessation (3) Hypomagnesemia: Replaced with IV as noted above (4) Obesity: BMI 35.2 counseled on weight loss (5) Mitral regurgitation: as noted, mild (6) Alcohol abuse: as above (7) Current smoker: counseled on cessation (8) Prediabetes: Glucose 153 upon admission. Check hemoglobin [id number] elevated at 5.9% TGs elevate din 500s Likely all related to excessive beer drinking advised EtOH cessation, weight loss, exercise follow as outpt (9) DVT prophylaxis: SCDs Dispo-stable for dc to home Total Time Total Time Spent Total Time Spent (In Minutes): 35 min Total Time Includes: Examination of the Patient, Discharge Planning, Medication Reconciliation and Communication With Other Providers (Cardiology) Discharge Plan Discharge Items Patient Disposition: Home - Self-Care Reason For Visit: NEW ONSET ATRIAL FIB WITH RVR Discharge Diagnosis: Rapid atrial fibrillation Activity: Resume your previous activity Non-emergency contact: Primary Care Provider and Drill Punch Operator Call non-emergency contact if: you have any medication questions and your symptoms worsen Follow-up/Referrals: Carlos Eduardo Albright MD [Physician] - (Please follow up within 2 weeks.) Crystal Gray MD [Physician] - (Please call to schedule a new patient appointment for hospital follow up within 1-2 weeks.) PCP,NO [Primary Care Provider] - Diet: Carb Consistent or DM2 and Heart Healthy Addtl Attending Provider Instructions: You were admitted with rapid atrial fibrillation and then converted to a normal heart rhythm on your own. You do not need any new medications at this time as per Cardiology recommendations. It is important that you cut down or quit drinking alcohol completely. Also, you should have an outpatient sleep study to evaluate you for sleep apnea. Please consider quitting smoking as well to greatly improve your health. You have pre-diabetes and weight loss, exercise, and quitting all alcohol intake will help prevent you from getting flow blown diabetes in the future. Pending Studies at Discharge: No Stand-Alone Forms: [facility], Smoking Cessation Medications and DC Order Prescriptions: Continued ibuprofen 200 mg Tablet 600 mg PO Q6H PRN (Reason: Pain) RF: 0 melatonin 5 mg Tablet 5 mg PO HS PRN (Reason: Sleep) RF: 0 Discharge Orders: Discharge Order (Routine); Ordered 08/26/20 Ordered By: Emily Livingston Admission Data Admit Date/Time: 08/25/20 23:46 Attending Provider: Emily Livingston Admit Provider: Sathish Bethea Primary Care Provider: PCP,NO Other Providers: Sathish Bethea ; Carlos Eduardo Albright Coding Level of Care Code D/C Day Management >30 mins Diagnoses Atrial fibrillation with RVR I48.91 Dehydration E86.0 Hypomagnesemia E83.42 Obesity E66.9 Mitral regurgitation I34.0 Alcohol abuse F10.10 Current smoker F17.200 Prediabetes R73.03 DVT prophylaxis Z29.9
--- NOTE | 2020-08-26 15:07 | Electrocardiogram Report ---
Test Reason : Blood Pressure : / mmHG Vent. Rate : 145 BPM Atrial Rate : 178 BPM P-R Int : 000 ms QRS Dur : 084 ms QT Int : 290 ms P-R-T Axes : 000 028 153 degrees QTc Int : 450 ms Atrial fibrillation with rapid ventricular response with premature ventricular or aberrantly conducte d complexes Nonspecific ST and T wave abnormality Abnormal ECG No previous ECGs available Confirmed by Adair Shi ([id number]) on 08/26/2020 3:07:26 PM Referred By: REFERRED SELF Confirmed By:Sanchez Shi
--- NOTE | 2020-08-26 15:09 | Electrocardiogram Report ---
Test Reason : Blood Pressure : / mmHG Vent. Rate : 118 BPM Atrial Rate : 138 BPM P-R Int : 000 ms QRS Dur : 086 ms QT Int : 318 ms P-R-T Axes : 000 036 069 degrees QTc Int : 445 ms Atrial fibrillation with rapid ventricular response Nonspecific T wave abnormality Abnormal ECG When compared with ECG of 25-AUG-2020 21:24, (unconfirmed) No significant change was found Confirmed by Adair Shi ([id number]) on 08/26/2020 3:08:53 PM Referred By: REFERRED SELF Confirmed By:Sanchez Shi
--- NOTE | 2020-08-26 15:10 | Electrocardiogram Report ---
Test Reason : Blood Pressure : / mmHG Vent. Rate : 076 BPM Atrial Rate : 076 BPM P-R Int : 132 ms QRS Dur : 088 ms QT Int : 362 ms P-R-T Axes : 025 023 047 degrees QTc Int : 407 ms Normal sinus rhythm Normal ECG When compared with ECG of 25-AUG-2020 22:55, (unconfirmed) Sinus rhythm has replaced Atrial fibrillation Vent. rate has decreased BY 42 BPM Nonspecific T wave abnormality no longer evident in Lateral leads Confirmed by Adair Shi ([id number]) on 08/26/2020 3:09:39 PM Referred By: REFERRED SELF Confirmed By:Sanchez Shi
--- NOTE | 2020-08-26 15:11 | Electrocardiogram Report ---
Test Reason : Blood Pressure : / mmHG Vent. Rate : 061 BPM Atrial Rate : 061 BPM P-R Int : 140 ms QRS Dur : 088 ms QT Int : 404 ms P-R-T Axes : 059 029 039 degrees QTc Int : 406 ms Normal sinus rhythm Normal ECG When compared with ECG of 26-AUG-2020 01:14, (unconfirmed) No significant change was found Confirmed by Adair Shi ([id number]) on 08/26/2020 3:11:00 PM Referred By: REFERRED SELF Confirmed By:Sanchez Shi
== END 2020-08-26 13:37 | disposition home or self-care (01) | DRG 310 ==
LOC: ED 21:18 → SUATTDRO 23:46 → 2S 23:46

== ENCOUNTER 2023-01-26 08:40 | Inpatient (IN) ==
--- NOTE | 2023-01-26 08:48 | Pre Anesthesia Assessment ---
Date of Service January 26, 2023 Pre Sedation Assessment Vital Signs Temp Pulse Resp BP Pulse Ox O2 Del Method 01/26/23 08:53 36.8 C 66 16 217/129 H 97 Room Air Cardiovascular + regular rate and + regular rhythm + S1 normal, + S2 normal and + murmur (soft, 1/6 GRUPO) + femoral pulses present and + radial pulses present; no JVD and no carotid bruit no edema Respiratory + respiratory effort normal; no respiratory distress, no labored breathing and no retractions no crackles, no rales, no rhonchi and no wheezes Pre-Sedation Airway Assessment Smoking Status: Former smoker Mallampati Class: III ASA: ASA3 NPO Status Date of Last Intake of Fluids: 01/25/23 Date of Last Intake of Solid Food: 01/25/23 Procedure Planning Contraindications for Sedation: none Current Medications Reviewed: Yes Notes The planned sedation has been discussed with the patient. Informed Consent was obtained. I have identified the patient, determined the appropriateness of sedation and have assessed the patient immediately prior to the procedure. All medicine(s) and interventions are by my order.
--- NOTE | 2023-01-26 08:48 | History & Physical Bridge Note ---
Date of Service January 26, 2023 History & Physical Bridge Note I have examined the patient, reviewed the History & Physical and in the interval since the performance of the History & Physical I have noted the following changes of clinical significance: no changes noted
[2023-01-26] MEDS ORDERED: MIDAZOLAM HCL 1 MG/ML 2ML VIAL ONE (09:24)
[2023-01-26] MEDS ORDERED: fentaNYL citrate PF 100 MCG/2 ML VIAL ONE (09:25)
[2023-01-26] MEDS ORDERED: HEPARIN (PORCINE) 1000 UNIT/ML 10 ML (CATH LAB USE ONLY) ONE (09:25)
[2023-01-26] MEDS ORDERED: NITROGLYCERIN/D5W 100MCG/ML 20ML SYR ONE (09:25)
[2023-01-26] MEDS ORDERED: niCARdipine HCL INJ 2.5 MG/ML 10 ML AMP ONE (09:25)
[2023-01-26] MEDS ORDERED: OPTIRAY 350 ONE (09:32)
--- NOTE | 2023-01-26 10:32 | Post Anesthesia Assessment ---
Date of Service January 26, 2023 Post Sedation Assessment Vital Signs Temp Pulse Resp BP Pulse Ox O2 Del Method 01/26/23 08:53 36.8 C 66 16 217/129 H 97 Room Air Recovery Score Respiration: Deep Breath/Cough Circulation: +/-20% PreAnes Value Consciousness: Fully Awake Discharge Sedation Level of Care: Phase I Post Sedation Plan On clinical assessment, the patient appears to have tolerated the sedation without complications. Patient is recovering as anticipated. Patient will continue to be monitored by nursing and may be discharged when sedation discharge criteria are met per below protocol. Upon Completions of procedure up to 15 minutes continue every 5 minute vital signs and the P.A.R. score; then discharge to a Phase I or Fast Track to Phase II per the following guidelines: * Discharge Patient to appropriate Phase II area if PAR is 8 or greater or return to pre- procedure baseline. The post - procedure orders will be as directed. * If PAR score is less than 8 or not return to pre-procedure baseline then patient will follow Phase I monitoring till PAR is reached for Phase II. The Phase I may be done in procedure room or may call to secure a Phase I area. * If naloxone or flumazenil are used for reversal, hold in Phase I for continue d monitoring from when last reversal dose was given for a minimum of 60 minutes or longer pending the nurse and/or physician discretion of patient condition before discharge to Phase II. Please call the Sedation Physician to re-evaluate and complete post-note for discharge to Phase II area. Do NOT discharge from procedure sedation or Phase 1 until post- sedation evaluation note is complete by procedure /sedation MD Sedation Discharge Instructions to be given to the patient at discharge to home.
--- NOTE | 2023-01-26 10:40 | Cardiac Catheterization ---
Cardiac Cath Procedure Full Procedure Date January 26, 2023 Pre-Procedure Diagnosis Pre-Procedure Diagnosis: Angina AUC Score AUC Score: 7 Post-Procedure Diagnosis Post-Procedure Diagnosis: Severe CAD Procedure(s) Performed Procedure(s) Performed: Coronary Angiography and Left Heart Cath Forming Machine Upkeep Mechanic Helper Javier Crespo DO Key Holder(s) Book Store Associate DOCKET CLERK Estimated Blood Loss Estimated Blood Loss: 6cc Medication(s) Medication(s): Fentanyl, Heparin, Lidocaine 1%, Nicardipine, Nitroglycerin and Versed Summary of Findings 90% proximal LAD extending to ostium. Hemodynamics Rest Ao:: 131/72/96 Final Ao: 166/74/102 LV: 165/3/10 Recommendations Recommendations: Management Recommendatons (Transfer to tertiary care for consideration of coronary artery bypass grafting versus PCI.) Specimens Specimens: None Radiation Exposure (mGy) 1625 Contrast (mls) 65 Fluids (cc crystalloids) Fluids (cc crystalloids): 75 NSS Drains Drains: N/A Anesthesia Moderate sedation. Start 1001. End 1024. Sedation Monitor: Showers RN Procedural Complication(s) None Disposition Aeronautical Drafter Holding/Recovery I attest to the content of the Intraoperative Record and any orders documented therein. Any exceptions are noted below. ACC Data: Aeronautical Drafter Cardiac Status Clinical evaluation leading to the procedure 63-year-old male with exertional symptoms concerning for unstable angina. CAD Presenation: Unstable angina Anginal Classification: CCS III Heart Failure: No Imaging Studies Past 6 Months: Yes Stress Studies Past 6 Months: No Coronary Anatomy Dominant: Right Left Main (% Stenosis): Distal (Severe ostial LAD stenosis extending to the distal left main) LAD (% Stenosis): Ostial (90%), Proximal (90%) and Mid (Mild diffuse disease stenosis ranging up to 20%. moderate caliber vessel.) D1 (% Stenosis): Mid (Luminal irregularities, 10-20%, small vessel) D2 (% Stenosis): Mid (Luminal irregularities, 10%.) Circumflex (% Stenosis): Normal OM1 (% Stenosis): Normal (Small vessel) OM2 (% Stenosis): Ostial (50%) and Proximal (20%, Large vessel) L PL1 (% Stenosis): Proximal (20%, large vessel) RCA (% Stenosis): Proximal (Mild catheter induced spasm, resolved with repositioning), Mid (30%) and Distal (40%) R PDA (% Stenosis): Normal Diagnostic Physicians Name: Javier Crespo DO Closure Device Recommendations: Management Recommendatons (Transfer to tertiary care for consideration of coronary artery bypass grafting versus PCI.) Intraprocedure Events Significant Disection: No Perforation: No
[2023-01-26] MEDS ORDERED: Heparin IV Adult Wt-Based Standard WITH Bolus Protocol IV SCH (16:45)
[2023-01-26] MEDS ORDERED: HEPARIN SODIUM/DEXTROSE 25,000 UNITS/500 ML BAG IV SCH (17:00)
[2023-01-26] MEDS ORDERED: HEPARIN SOD (PORCINE) 1000 UNIT/ML IV ONE (17:00)
[2023-01-26 17:26] LABS: Basophils # (auto) 0.06 K/uL (0.00-0.20); Basophils % (auto) 0.6 %; Eosinophils # (auto) 0.16 K/uL (0.00-0.50); Eosinophils % (auto) 1.7 %; Hemoglobin 14.9 g/dl (14.0-18.0); Immature Granulocytes # (auto) 0.03 K/uL (0.01-0.20); Immature Granulocytes % (auto) 0.3 %; Lymphocytes # (auto) 2.29 K/uL (1.20-3.40); Lymphocytes % (auto) 24.5 %; Mean Corpuscular Hemoglobin 33.3 pg (25.0-34.0); Mean Corpuscular Hgb Conc 35.5 g/dL (32.0-36.0); Mean Corpuscular Volume 93.8 fL (80.0-100.0); Mean Platelet Volume 10.4 fL (9.4-12.4); Monocytes # (auto) 0.71 K/uL (0.11-0.59); Monocytes % (auto) 7.6 %; Neutrophils # (auto) 6.08 K/uL (1.40-6.50); Neutrophils % (auto) 65.3 %; Platelet Count 191 K/uL (130-400); RDW Coefficient of Variation 13.2 % (11.5-14.5); RDW Standard Deviation 45.2 fL (36.4-46.3); Red Blood Count 4.48 M/uL (4.70-6.10); White Blood Count 9.33 K/ul (4.8-10.8)
[2023-01-26 17:54] LABS: Prothrombin Time 11.4 Seconds (9.0-12.0)
[2023-01-26] MEDS ORDERED: Nursing to Pharmacy Communication SCH (23:15)
[2023-01-27] MEDS ORDERED: ASPIRIN 81 MG CHEW PO SCH (09:00)
[2023-01-27] MEDS ORDERED: METOPROLOL SUCC 25MG EXT REL TAB PO SCH (09:00)
[2023-01-27] MEDS ORDERED: ATORVASTATIN 40 MG TAB PO SCH (09:00)
--- OUTSIDE RECORDS SUMMARY | 2023-01-27 20:06 | External Medical Summary | Summary of Care ---
Author Name Unknown Organization [facility] Address [address] [facility] [place] [address] Phone [phone] Care Team Providers Care Records Specialist Name Role Phone Vicky Jordan DO Primary Care Provider [phone] Reason for Visit * Reason Onset Date Comments Test Results 01/24/2023 Encounter Details Date Type Department Care Team (Late st Contact Info) Description 01/24/2023 Telephone Cardiology, [facility] [address] [place] [address] Javier Crespo DO [address] [place] [address] Test Results Allergies No known active allergiesdocumented as of this encounter (statuses as of 01/24/2023) Medications Medication Sig Dispensed Refills Start Date End Date Status NATURAL SUPPLEMENT Fruits and Veggies - 3 capsules each daily in morning 0 Active Pantoprazole Sodium 20 MG Oral Tablet Delayed Release (Protonix) Take 1 Tablet by mouth in the morning and 1 Tablet before bedtime. 30 minutes before the first meal of the day. Do not crush, split or chew the tablet. 60 Tablet 1 01/18/2023 Active Aspirin 81 MG Oral Tablet Chewable Take 1 Tablet by mouth in the morning. 34 Tablet 11 01/23/2023 Active Atorvastatin Calcium 40 MG Oral Tablet (Lipitor) Take 1 Tablet by mouth in the morning. 100 Tablet 3 01/23/2023 Active Metoprolol Succinate ER 25 MG Oral Tablet Extended Release 24 Hour (Toprol XL) Take 1 Tablet by mouth in the morning. 34 Tablet 6 01/23/2023 Active Nitroglycerin 0.4 MG Sublingual Tablet Sublingual (Nitrostat) Place 1 Tablet under the tongue every 5 minutes as needed for chest pain up to 3 doses in 15 minutes 25 Tablet 11 01/23/2023 Active documented as of this encounter (statuses as of 01/24/2023) Active Problems No known active problems documented as of this encounter (statuses as of 01/24/2023) Immunizations Name Administration Dates Next Due COVID-19 mRNA, LNP-s, No Pre serve, 2-Dose Series (Moderna) 06/12/2020,05/15/2020 COVID-19, MRNA-LNP, 23-24, P F, 30 MCG/0.3 mL, 12 YRS AND ABOVE, IM (TappIn-Comirnaty) 01/18/2023 Pneumococcal Conjugate Vaccine, 20-valent (Prevn ar20) 01/18/2023 Seasonal Influenza Virus Vac cine, Unspecified Formulation 04/25/2019 TDAP (age 10 and older)(Boostrix) 01/18/2023 documented as of this encounter Social History Tobacco Use Types Packs/Day Years Used Date Smoking Tobacco: Former Cigarettes Q uit: 01/01/2023 Passive Smoke Exposure: Past Smokeless Tobacco: Never Alcohol Use Standard Drinks/Week Comments Yes 0 (1 standard drink = 0.6 oz pur e alcohol) 6-7 light beers nightly PHQ-2 Answer Date Recorded PHQ Adult Total Score 1 01/18/2023 Hunger Vital Sign Answer Date Recorded Within the past 12 months, y ou worried that your food would run out before you got the money to buy more. Never true 01/12/20 23 Within the past 12 months, t he food you bought just didn't last and you didn't have money to get more. Never true 01/11/2023 Sex and Gender Information Value Date Recorded Sex Assigned at Not on file Gender Identity Not on file Sexual Orientation Not on file Job Start Date Occupation Industry Not on file Not on file Not on file documented as of this encounter Miscellaneous Notes * Telephone Encounter - María Stewart CMA - 01/24/2023 4:03 PM EST Portal message sent. * Telephone Encounter - María Stewart CMA - 01/24/2023 4:02 PM EST ----- Message from Javier Crespo DO sent at 01/24/2023 1:04 PM EST ----- Echocardiogram demonstrates normal LV function with moderate left ventricular hypertrophy. No significant valvular pathology. Proceed with cardiac catheterization as scheduled. documented in this encounter Plan of Treatment Upcoming Encounters Date Type Department Care Team (Late st Contact Info) Description 04/25/2023 3:00 PM EST Office Visit Cardiology, [facility] [address] [facility] [place] [address] Edel Sosa [facility]C [address] [facility] [place] [address] Health Maintenance Due Date Last Done Comments HIV Screening 1973 Hepatitis C Screening 01/14/1976 Cologuard 2003 Colonoscopy 2003 Colorectal Cancer Screening 2003 Fecal Occult Blood Test 2003 Sigmoidoscopy 2003 Zoster Vaccines (1 of 2) 01/14/2008 Influenza Vaccine (FLU shot) (#1) 2022 04/25/2019 AAA Screening 2023 Depression Screening 01/19/2024 01/18/2023 Diabetes Screening 01/18/2026 01/18/2023 Lipid Panel 01/19/2028 01/18/2023 DTaP,Tdap,and Td Vaccines (2 - Td or Tdap) 01/18/2033 01/18/2023 COVID-19 Vaccine Completed 01/18/2023, 06/12/2020, 05/15/2020 Pneumococcal Vaccine: 65+ Years Completed 01/18/2023 GARDASIL-HPV IMMUNIZATION SERIES Aged Out No longer eligible b ased on patient's age to complete this topic Hepatitis B Aged Out No longer eligi ble based on patient's age to complete this topic MENINGOCOCCAL (MENACTRA/MENVEO) Aged Out No longer eligible b ased on patient's age to complete this topic documented as of this encounter Medical Devices Not on filedocumented as of this encounter Care Teams Records Specialist Relationship Specialty Start Date End Date Vicky Jordan DO [address] [place] [address] PCP - General Family Medicine 01/22/23 documented as of this encounter
--- OUTSIDE RECORDS SUMMARY | 2023-01-27 20:06 | External Medical Summary ---
Author Name Unknown Address Unknown Organization [id number] [address] [place] [address] Laboratory Report Ordering Provider Test Date Status ANTONIO HARE 01/23/2023 14:36:26 Final Warfarin Therapy
INR: 2 .0-3.0 conventional anticoagulation
INR: 2.5- 3.5 high intensity anticoagulation Observation Date Value Abnormality Reference (Units ) Status PT 01/23/2023 14:36:26 13.5 11.6-15.2 (seconds) Final INR 01/23/2023 14:36:26 1.0 0.8-1.2 Final Performing Location [facility] [place] [address]
--- OUTSIDE RECORDS SUMMARY | 2023-01-27 20:06 | External Medical Summary ---
Author Name Unknown Address Unknown Organization [id number]:[facility] [place] - [address] [place] [facility] [place] [address] Laboratory Report Ordering Provider Test Date Status NIKI FERREIRA 01/18/2023 12:38:03 Final Observation Date Value Abnormality Reference (Units ) Status BUN 01/18/2023 12:38:03 16 6-20 (mg/dL) Final Creatinine 01/18/2023 12:38:03 0.9 0.6-1.2 (mg/dL) Final Glomerular filtration rate/1.73 sq M.predicted [Volume Rate/Area] in Serum, Plasma or Blood by Creatinine-based formula (CKD-EPI) 01/18/2023 12:38:03 >90 >=60 (mL/min) Final eGFR is calculated based on the CKD-EPI 2020 equation SODIUM 01/18/2023 12:38:03 140 135-146 (m mol/L) Final Potassium 01/18/2023 12:38:03 4.5 3.5-5.1 (m mol/L) Final Cl 01/18/2023 12:38:03 101 98-107 (mm ol/L) Final CO2 01/18/2023 12:38:03 24 22-32 (mmo l/L) Final Anion gap 01/18/2023 12:38:03 15 7-15 (mmol /L) Final Glucose 01/18/2023 12:38:03 98 70-120 (mg /dL) Final Albumin 01/18/2023 12:38:03 4.8 3.8-5.0 (g /dL) Final AST (Aspartate aminotransferase) 01/18/2023 12:38:03 24 10-50 (U/L) Final Alk Phos 01/18/2023 12:38:03 80 35-130 (U/ L) Final Bilirubin, Total 01/18/2023 12:38:03 0.5 <=1 .2 (mg/dL) Final Calcium 01/18/2023 12:38:03 9.8 8.4-10.2 ( mg/dL) Final Protein 01/18/2023 12:38:03 7.2 6.0-8.3 (g /dL) Final ALT (Alanine aminotransferase) 01/18/2023 12:38:03 44 10-50 (U/L) Final Performing Location LAB[facility]ATORY [facility] - [address] [facility] [address]
--- OUTSIDE RECORDS SUMMARY | 2023-01-27 20:06 | External Medical Summary | Summary of Care ---
Author Name Unknown Organization [facility] Address [address] [place] [address] Phone [phone] Care Team Providers Care Obgyn Specialist Name Role Phone CharlottejaniceVicky anderson Primary Care Provider + [phone] Reason for Visit * Reason Comments Outpatient Testing Encounter Details Date Type Department Care Team (Late st Contact Info) Description 01/23/2023 2:50 PM EST Laboratory Laboratory, [facility] [address] [place] [address] [facility] [address] [address] Exercise-induced angina; PAF (paroxysmal atrial fibrillation) ([facility]) Allergies No known active allergiesdocumented as of this encounter (statuses as of 01/23/2023) Medications Medication Sig Dispensed Refills Start Date [...] as of this encounter (statuses as of 01/23/2023) Active Problems No known active problems documented as of this encounter (statuses as of 01/23/2023) Immunizations Name Administration Dates Next Due COVID-19 mRNA, LNP-s, No Pre serve, 2-Dose Series (Moderna) 06/12/2020,05/15/2020 COVID-19, MRNA-LNP, 23-24, P F, 30 MCG/0.3 mL, 12 YRS AND ABOVE, IM (PFIZER-Comirnaty) 01/18/2023 Pneumococcal Conjugate Vaccine, 20-valent (Prevn ar20) [...] on file documented as of this encounter Plan of Treatment Upcoming Encounters Date Type Department Care Team (Late st Contact Info) Description 01/24/2023 9:15 AM EST Cardiac Studies Cardiac Studies, [facility] [address] [place] [address] 04/25/2023 3:00 PM EST Office Visit Cardiology, [facility] [address] [place] [address] Edel Sosa PA-C [address] [facility] [place] [address] Pending Results Name Type Priority Associated Diagnoses Date /Time PT INR Lab Routine Exercise-induced angina PAF (paroxysmal atrial fibrillation) (HCC) 01/23/2023 2:36 PM EST APTT Lab Routine Exercise-induced angina PAF (paroxysmal atrial fibrillation) (HCC) 01/23/2023 2:36 PM EST Health Maintenance Due Date Last Done Comments [...] Not on filedocumented as of this encounter Visit Diagnoses Diagnosis Exercise-induced angina Other and unspecified angina pectoris PAF (paroxysmal atrial fibrillation) (HCC) Atrial fibrillation documented in this encounter Care Teams Obgyn Specialist Relationship Specialty Start Date End Date Vicky Jordan DO [address] [facility] [place] [address] PCP - General Family Medicine 01/22/23 documented as of this encounter
--- OUTSIDE RECORDS SUMMARY | 2023-01-27 20:06 | External Medical Summary ---
Author Name Unknown Address Unknown Organization [id number] [address] [place] [address] Laboratory Report Ordering Provider Test Date Status ANTONIO HARE 01/23/2023 14:36:26 Final Anticoagulation may affect t esting. Refer to [facility] Test Catalog for a list of effects. Observation Date Value Abnormality Reference (Units ) Status aPTT panel - Platelet poor plasma 01/23/2023 14:36:26 34 21-38 (seconds) Final Performing Location [facility] [address] [place] [address]
--- OUTSIDE RECORDS SUMMARY | 2023-01-27 20:06 | External Medical Summary | Summary of Care ---
Author Name Unknown Organization [facility] Address [address] [place] [facility] [address] Phone [phone] Care Team Providers Care Business Performance Manager Name Role Phone Edilberto Yanez DO Primary Care Provider [phone] Reason for Referral * Evaluate & Treat - Unlimited Visits (Within 3 days (urgent)) - Authorized Specialty Diagnoses / Procedures Referred By Tabitha de la rosa Referred To Contact Cardiovascular Medicine / Cardiology Diagnoses Other chest pain MCCANN (dyspnea on exertion) History of atrial fibrillation Vicky Jordan DO [address] [place] [address] Referral ID Status Reason Start Date Expiration Date Visits Requested Visits Authorized [id number] Authorized Specialty Services Required 3 [phone] Question Answer Referral Priority Within 3 days (urgent) Where should this appointment be scheduled? [facility] To which of the following clinics are you referring your patient? General Cardiology Clinic Reason for Visit * Reason Comments NEW PATIENT Encounter Details Date Type Department Care Team (Latest Contact Info) Description 01/18/2023 10:00 AM EST Office Visit Family Practice [address] [facility], [place] [address] [place] [address] Vicky Jordan DO [address] [place] [address] Other chest pain*; MCCANN (dyspnea on exertion); History of atrial fibrillation; Gastroesophageal reflux disease, unspecified whether esophagitis present; Alcohol use disorder; History of tobacco use; Risk and functional assessment; Screening for cardiovascular condition Allergies No known active allergiesdocumented as of this encounter (statuses as of 01/22/2023) Medications Medication Sig Dispensed Refills Start Date [...] the tablet. 60 Tablet 1 01/18/2023 Active Omeprazole 20 MG Oral Capsule Delayed Release (PriLOSEC) Take 1 Capsule by mouth daily. afternoon 0 01/18/2023 Discontinued (Medication/ Dose Changed) documented as of this encounter (statuses as of 01/22/2023) Active Problems No known active problems documented as of this encounter (statuses as of 01/22/2023) Immunizations Name Administration Dates Next Due COVID-19 [...] Passive Smoke Exposure: Past Smokeless Tobacco: Never Tobacco Cessation:Counseling Given: Yes Alcohol Use Standard Drinks/Week Comments Yes 0 [...] on file documented as of this encounter Last Filed Vital Signs Vital Sign Reading Time Taken Comments Blood Pressure 138/88 01/18/2023 9:51 AM EST Pulse 70 01/18/2023 11:25 AM EST Temperature 35.9 C (96.6 F) 01/18/2023 9:51 AM ES T Respiratory Rate - - Oxygen Saturation 97% 01/18/2023 11:25 AM EST Inhaled Oxygen Concentration - - Weight 110 kg (242 lb 9.6 oz) 01/18/2023 9:51 AM EST Height 176.5 cm (5' 9.5") 01/18/2023 9:51 AM EST Body Mass Index 35.31 01/18/2023 9:51 AM EST documented in this encounter Patient Instructions * Patient Instructions* Millie Cannon RN - 01/18/2023 10:08 AM EST Patient Instructions - Fall Prevention (This education is for all patients over 65 regardless of symptoms) Remember to take your current medications as prescribed. In order to prevent falls, you are encouraged to: Exercise Utilize assistive/adaptive devices Avoid multifocal lenses when walking Avoid hazards in home Maintain a regular toileting schedule Any questions please contact our office. Preventing Falls in the Home (This education is for all patients over 65 regardless of symptoms) As you get older, falls are more likely. Thats because your reaction time slows. Your muscles and joints may also get stiffer, making them less flexible. Illness, medications, and vision changes can also affect your balance. A fall could leave you unable to live on your own. To make your home safer, follow these tips: Floors Put nonskid pads under area rugs Remove throw rugs Replace worn floor coverings Tack carpets firmly to each step on carpeted stairs. Put nonskid strips on the edges of uncarpeted stairs Keep floors and stairs free of clutter and cords Arrange furniture so there are clear pathways Clean up any spills right away Bathrooms Install grab bars in the tub or shower Apply nonskid strips or put a nonskid rubber mat in the tub or shower Sit on a bath chair to bathe Use bathmats with nonskid backing Lighting Keep a flashlight in each room Put a nightlight along the pathway between the bedroom and the bathroom [employer] Patient Education Copyright 2008 - 2010 [employer] except where otherwise noted Preventing Falls: Exercises to Improve Balance, Flexibility, Strength, and Staying Power (This education is for all patients over 65 regardless of symptoms) Certain types of exercises may help make you less likely to fall. Try the ones below. Or do other exercises that your healthcare provider suggests. Depending on your health, you may need to start slowly. Dont let that stop you. Even small amounts of exercise can help you. Be sure to talk to yourhealthcare provider before starting any exercise program. Improve Balance Many types of exercise can help improve balance. Bladimir chi and yoga are good examples. Heres another one to try. You can do it anytime and almost anywhere. Stand next to a counter or solid support. Push yourself up onto your tiptoes. Hold for 5 seconds. If you start to lose your balance, hold on to the counter. Rest and repeat 5 times. Work up to holding for 20 to 30 seconds, if you can. Increase Flexibility Being more flexible makes it easier for you to move around safely. Try exercises like the seated hamstring stretch. Sit in a chair and put one foot on a stool. Straighten your leg and reach with both hands down either side of your leg. Reach as far down your leg as you can. Hold for about 20 seconds. Go back to the starting position. Then repeat 5 times. Switch legs. Build Strength Resistance exercises help build strength. You can do them without equipment. Or you can use weights, elastic bands, or special machines. One such exercise is called the biceps curl. You can hold a 1 pound weight or even a can of soup. Do this exercise at least 3 times a week. Strive for everyday. Sit up straight in a chair. Keep your elbow close to your body and your wrist straight. Bend your arm, moving your hand up to your shoulder. Then slowly lower your arm. Repeat 5 times. Switch to the other arm. Build Your Staying Power Aerobic exercises make your heart and lungs stronger so you can keep moving longer. Walking and swimming are two of the best types of exercises you can do. Using a stationary bike is great, too. Find an aerobic exercise that you enjoy. Start slowly and build up. Even 5 minutes is helpful. Aimfor a goal of 30 minutes, at least 3 times a week. You dont have to do 30 minutes in one session. Break it up and walk a little throughout the day. More Helpful Tips Start easy. Slowly work up to doing more. Talk with your healthcare provider about the best exercises for you. Call senior centers or health clubs about exercise programs. If needed, have a family member watch you walk every so often to check your stability. Exercise with a friend. Choose an activity you both enjoy. Try exercises that you can do anytime, anywhere. Here are two examples. Have someone with you when you first try these: Practice walking by placing one foot right in front of the other. Stand up and sit down 10 times. Repeat this throughout the day. Get Patient Education Copyright 2008 - 2010 Get except where otherwise noted. Preventing Falls: Moving Safely Using a Cane or Walker (This education is for all patients over 65 regardless of symptoms) Keep the cane away from your feet so you dont trip. A walking aid, such as a cane or walker, can help you stay more independent and avoid falls. Remember to keep your walking aid within easy reach when youre in a chair or in bed. And learn how to use it safely so you dont injure yourself. Using a Cane If you have a stronger side, hold the cane on that side. Get your balance. Move the cane and your weaker leg forward. Support your weight on both the cane and your weaker side. Step with your stronger leg. Start again from step 1. If youre using a folding walker, be sure you know how to lock it open. Check that its locked open before each use. Using a Walker Roll the walker (or lift it, if youre using one without wheels) forward about 12 inches. Step forward with your weaker leg first. Use the walker to help keep your balance. Bring your other foot forward to the center of the walker. Start again from step 1. Helpful Tips Check with your healthcare provider about the right walking aid to use. Ask about a walker with a seat attached. Check the tips of your cane or walker to make sure they have nonskid covers. Move slowly from room to room. Dont bakari. Sit down to get dressed. Use a hannah pack or backpack to keep your hands free. Get help for jobs that mean climbing, even on a stepstool. [employer] Patient Education Copyright 2008 - 2010 Get except where otherwise noted. Treating Urinary Incontinence in Men (This education is for all patients over 65 regardless of symptoms) You can't always control the release of urine. You may leak urine. Or you may not be able to hold your urine until you can get to a bathroom. This is called urinary incontinence. The problem can be managed. Talk to your doctor about your treatment options. Taking Medications Prescription medications may help you. They may: Help the sphincter to work better. (This is the muscle that closes to keep urine from leaking out of the bladder.) Help stop the bladder from nathaniel too often to push urine out. Help the bladder muscles contract with more force. Help relax the sphincter muscle and allow urine to flow more freely. Making Changes to Your Routine Certain changes in your daily routine may help. These include: Avoiding caffeine and alcohol. Using timed voiding. This is following a schedule for drinking fluids and urinating. Doing Kegel exercises daily. These exercises involve tightening the muscles in your sphincter and around your bladder to help strengthen them. Your doctor can explain how to do them. Using a Catheter A catheter is a narrow tube that is inserted through the urethra into the bladder. It drains urine.A condom catheter covers the penis. It channels urine into a collection bag. It is worn most of thetime. Intermittent catheterization means inserting a catheter to drain the bladder, then removing it. This is done on a regular schedule. Having Surgery If other options don't work, surgery may be recommended. If surgery is an option, your healthcare provider can discuss it with you and explain its risks and benefits. Healing After Prostate Surgery Surgery on the prostate gland can cause incontinence. Most often, the incontinence is only for a short time. It clears up when healing is complete. Very rarely, prostate surgery can result in permanent incontinence. documented in this encounter Progress Notes * Millie Cannon RN - 01/18/2023 11:22 AM EST ekg done as per 's order [place] [facility] [place]io Patch applied-to wear x 14 days. Serial # [id number] Pulse ox at rest/exercise completed Rest Pulse ox 96%, HR 66 Walking Pulse ox 95%, HR 96 Rest Pulse ox 97%, HR 70 * NikkiVicky Jony, DO - 01/18/2023 9:51 AM EST SUBJECTIVE: Chief Complaint Patient presents with NEW PATIENT HPI: Gildardo Mercer is a 63 year old male who [facility]. Pt has not seen a physician in 16 years. 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 He had one hospitalization about a year ago for chestpain. Pt notes that he is short of breath with any exertion. He notes he has pain straight through to hisshoulder blades. He states that it is worse over the last 3-4 weeks and even worse in the last 5 days. He is short of breath with this. He will feel flushed at times. No wheezing. Symptoms seem to start after exertion the majority of the time. He can get some issues at rest. He may get some palpitations. He denies dizziness other than the flushing. He notes that his vision has felt funny after a couple of episodes of flushing. He quit smoking about 2 weeks ago. He notes that he will get a lot of discomfort at night. He notes it improves when he sits up. He states that it will last about 1.5 hours. He notes that he can get the acid taste in his throat at times. He notes that he took a drink of coke at night one time and had immediate discomfort. He has used Prilosec for years. It has not really helped with this. He states that this is way above the heartburn he is used to. He cannot pinpoint anything that helps his symptoms. PHM: There is no problem list on file for this patient. Current Outpatient Medications Medication Sig Dispense Refill Omeprazole 20 MG Oral Capsule Delayed Release (PriLOSEC) Take 1 Capsule by mouth daily. afternoon NATURAL SUPPLEMENT Fruits and Veggies - 3 capsules each daily in morning Pvoouov-Pzdgoy-Vbtis Pertussis 5-2.5-18.5 LF-MCG/0.5 Suspension Prefilled Syringe (Boostrix) Inject0.5 mL into a large muscle once for 1 dose. 0.5 mL 0 No current facility-administered medications for this visit. Past Medical History: Diagnosis Date No known health problems Past Surgical History: Procedure Laterality Date INFORMATION mole removed as child, benign as far he is aware Review of patient's allergies indicates: No Known Allergies Family History Problem Relation Age of Onset Diabetes Mother Hypertension Mother Cancer Father Prostate Hypertension Father Diabetes Father Hypertension Sister Cancer Sister Breast Heart Disorder Brother CABGx6 Stroke Brother Hypertension Brother No family status information on file. Social History Tobacco Use Smoking status: Former Types: Cigarettes Quit date: 01/01/2023 Years since quittin.0 Passive exposure: Past Smokeless tobacco: Never Substance Use Topics Alcohol use: Yes Comment: 6-7 light beers nightly Vaping/E-Cigarette Use Vaping/E-Cigarette Substances Vaping/E-Cigarette Devices REVIEW OF SYSTEMS: Review of Systems Constitutional: Negative for chills, fatigue, fever and unexpected weight change. HENT: Negative for congestion, ear pain, sinus pressure, sinus pain and sore throat. Respiratory: Positive for shortness of breath. Negative for cough, chest tightness and wheezing. Cardiovascular: Positive for chest pain. Negative for palpitations and leg swelling. Gastrointestinal: Negative for abdominal pain, constipation, diarrhea, nausea and vomiting. As per HPI Musculoskeletal: Negative for arthralgias, gait problem and joint swelling. Skin: Negative for color change, pallor and rash. Hematological: Negative for adenopathy. OBJECTIVE: BP 138/88 (BP Site: Left Arm, BP Position: Sitting, BP Cuff Size: Large) | Pulse 63 | Temp 35.9 C(96.6 F) | Ht 1.765 m (5' 9.5") | Wt 110 kg (242 lb 9.6 oz) | SpO2 97% | BMI 35.31 kg/m | BSA 2.32 m PHYSICAL EXAM: Physical Exam Constitutional: General: He is not in acute distress. Appearance: He is well-developed. Cardiovascular: Rate and Rhythm: Normal rate and regular rhythm. Heart sounds: Normal heart sounds. No murmur heard. No friction rub. No gallop. Pulmonary: Effort: Pulmonary effort is normal. No respiratory distress. Breath sounds: Normal breath sounds. No wheezing or rales. Abdominal: General: Bowel sounds are normal. There is no distension. Palpations: Abdomen is soft. Tenderness: There is no abdominal tenderness. There is no guarding. Musculoskeletal: General: No tenderness or deformity. Normal range of motion. Skin: General: Skin is warm and dry. Coloration: Skin is not pale. Findings: No erythema or rash. Neurological: Mental Status: He is alert and oriented to person, place, and time. ASSESSMENT/PLAN: (R07.89) Other chest pain (primary encounter diagnosis) (R06.09) MCCANN (dyspnea on exertion) (Z86.79) History of atrial fibrillation Plan: EKG, COMPREHENSIVE METABOLIC PANEL, TSH WITH FREE T4 IF INDICATED, CBC WITH WBC DIFFERENTIAL, EXTERNAL EKG 8 TO 15 DAYS, COMPREHENSIVE METABOLIC PANEL, TSH WITH FREE T4 IF INDICATED, CBC WITH WBC DIFFERENTIAL, PULSE OX W/ REST/EXERCISE, MULTIPLE (OP), CARDIOLOGY REFERRAL OP EKG today with no acute issue. In digging through previous hospital admission 2 years ago, he actually was found to have A.fib. unclear if this is cause of current symptoms. Zio placed. Also with anginal symptoms, will need cardiology f/u. Lab studies today. Pulse ox ok but pt tires quickly. (K21.9) Gastroesophageal reflux disease, unspecified whether esophagitis present Plan: VITAMIN B12, MAGNESIUM, VITAMIN B12, MAGNESIUM Pt will complete lab studies. Start pantoprazole. Will likely need EGD but will need to finish cardiac work-up prior to anesthesia. (F10.90) Alcohol use disorder Plan: VITAMIN B12, MAGNESIUM, VITAMIN B12, MAGNESIUM Encouraged cessation. To complete lab studies. Likely contributor to above. (Z87.891) History of tobacco use Plan: Pt recently quit. Encouraged to continue. (Z13.9) Risk and functional assessment Plan: See nursing note. (Z13.6) Screening for cardiovascular condition Plan: LIPID PANEL WITH DIRECT LDL IF TG IS HIGH, LIPID PANEL WITH DIRECT LDL IF TG IS HIGH Pt will complete lipid panel. Follow-up: await cardiology appt Total time today including reviewing chart before the visit, pertinent labs, imaging reports, face to face time, and documentation time was 47 minutes. Vicky Jordan DO * Shadia Easton [facility] - 01/18/2023 9:45 AM EST Hasn't been to a doctor in 19 years Went to [facility] a year ago for difficulty breathing - said heart was okay. SOB with activity lately inlast 3-4 wks. Tried Primatene mist, claritin, peptobismol Stopped smoking 17 days ago - cold turkey Had taken ibuprofen 600 mg in past, but stopped that. documented in this encounter Nursing Notes * Millie Cannon, ZEB - 01/18/2023 10:12 AM EST New patient 1 year ago went to hospital for chest pain/shoulder blade pain-had work up-not cardiac. Continues with the pain-has increased recently. SOB with exertion. Pain at night when lying down also-has to sit up for a while. Pt stopped smoking 17 days ago. Has occ cough-brings up [id number] yellowish.. Let shoulder pain x 1 1/2 years-fell getting out of hot tub. documented in this encounter Plan of Treatment Scheduled Orders Name Type Priority Associated Diagnoses Orde r Schedule EXTERNAL EKG 8 TO 15 DAYS Holter Routine Other chest pain MCCANN (dyspnea on exertion) History of atrial fibrillation Expected: 01/19/2023 (Approximate), Expires: 01/19/2024 PULSE OX W/ REST/EXERCISE, MULTIPLE (OP) Procedures Routine Other chest pain MCCANN (dyspnea on exertion) Ordered: 01/19/2023 Scheduled Referrals Name Type Priority Associated Diagnoses Orde r Schedule CARDIOLOGY REFERRAL OP Referral Within 3 days (urgent) Other chest pain MCCANN (dyspnea on exertion) History of atrial fibrillation Ordered: 01/22/2023 Health Maintenance Due Date Last Done Comments [...] Not on filedocumented as of this encounter Procedures Procedure Name Priority Date/Time Associated Diagnosis Comments DIFFERENTIAL, AUTOMATED Routine 01/18/2023 12:38 PM EST Other chest pain MCCANN (dyspnea on exertion) TSH WITH FREE T4 IF INDICATED Routine 01/18/2023 12:38 PM EST Other chest pain MCCANN (dyspnea on exertion) LIPID PANEL WITH DIRECT LDL IF TG IS HIGH Routine 01/18/2023 12:38 PM EST Screening for cardiovascular condition COMPREHENSIVE METABOLIC PANEL Routine 01/18/2023 12:38 PM EST Other chest pain MCCANN (dyspnea on exertion) CBC Routine 01/18/2023 12:38 PM EST Other chest pain MCCANN (dyspnea on exertion) CBC Routine 01/18/2023 12:38 PM EST Other chest pain MCCANN (dyspnea on exertion) MAGNESIUM Routine 01/18/2023 12:38 PM EST Alcohol use disorder Gastroesophageal reflux disease, unspecified whether esophagitis present VITAMIN B12 Routine 01/18/2023 12:38 PM EST Alcohol use disorder Gastroesophageal reflux disease, unspecified whether esophagitis present documented in this encounter Results * DIFFERENTIAL, AUTOMATED (01/18/2023 12:38 PM EST) WBC 9.06 4.00 - 10.80 K/uL 01/18/2023 11:51 PM EST [facility] Neutrophils % 68.7 40.0 - 75.0 % 01/18/2023 11:51 PM EST [facility] Lymphocytes % 20.5 18.0 - 42.0 % 01/18/2023 11:51 PM EST [facility] Monocytes % 8.1 1.0 - 11.0 % 01/18/2023 11:51 PM EST [facility] Eosinophils % 1.4 0.0 - 6.0 % 01/18/2023 11:51 PM EST [facility] Basophils % 0.7 0.0 - 2.0 % 01/18/2023 11:51 PM EST [facility] Immature Granulocytes % 0.6 0.0 - 2.0 % 01/18/2023 11:51 PM EST [facility] Absolute Neutrophils 6.23 1.80 - 7.70 K/uL 01/18/2023 11:51 PM EST [facility] Absolute Lymphocytes 1.86 1.00 - 4.80 K/ul 01/18/2023 11:51 PM EST [facility] Absolute Monocytes 0.73 0.00 - 1.10 K/uL 01/18/2023 11:51 PM EST [facility] Absolute Eosinophils 0.13 0.00 - 0.70 K/uL 01/18/2023 11:51 PM EST [facility] Absolute Basophils 0.06 0.00 - 0.20 K/uL 01/18/2023 11:51 PM EST [facility] Absolute Immature Granulocytes 0.05 0.00 - 0.20 K/uL 01/18/2023 11:51 PM EST [facility] Blood Venous blood specimen / Unknown Venipuncture / Unknown 01/18/2023 12:38 PM EST 01/18/2023 12:38 PM EST Vicky M Holencik DO LAB BLOOD ORDERABLES [facility] [address] [place] [address] * (ABNORMAL) CBC (01/18/2023 12:38 PM EST) WBC 9.06 4.00 - 10.80 K/uL 01/18/2023 11:51 PM EST [facility] RBC 4.93 4.50 - 5.25 M/uL 01/18/2023 11:51 PM EST [facility] HGB 16.6 14.0 - 16.8 g/dL 01/18/2023 11:51 PM EST [facility] HCT 49.5(H) 40.0 - 48.4 % 01/18/2023 11:51 PM EST [facility] MCV 100.4 82.0 - 99.5 fL 01/18/2023 11:51 PM EST [facility] MCH 33.7 27.0 - 34.0 pg 01/18/2023 11:51 PM EST [facility] MCHC 33.5 32.0 - 36.0 g/dL 01/18/2023 11:51 PM EST [facility] RDW 13.1 11.5 - 15.5 % 01/18/2023 11:51 PM EST [facility] PLT 215 140 - 400 K/uL 01/18/2023 11:51 PM EST [facility] MPV 11.5 6.6 - 11.1 fL 01/18/2023 11:51 PM EST [facility] nRBCs 0 <=0 /100 WBCs 01/18/2023 11:51 PM EST [facility] Blood Venous blood specimen / Unknown Venipuncture / Unknown 01/18/2023 12:38 PM EST 01/18/2023 12:38 PM EST Vicky Jordan DO LAB BLOOD ORDERABLES [facility] [address], [place] [id number] * MAGNESIUM (01/18/2023 12:38 PM EST) Magnesium 2.3 1.5 - 2.6 mg/dL 01/19/2023 2:02 AM EST [facility] Blood Venous blood specimen / Unknown Venipuncture / Unknown 01/18/2023 12:38 PM EST 01/18/2023 12:38 PM EST Vicky Porterjanicemonica LAB BLOOD ORDERABLES Performing Organization Address City/[facility]/ZIP Co de Phone Number LABORATORY C [address] [place] [address] * VITAMIN B12 (01/18/2023 12:38 PM EST) Vitamin B12 545 232 - 1,245 pg/mL 01/19/2023 2:43 AM EST [facility] [place] Venous blood specimen / Unknown Venipuncture / Unknown 01/18/2023 12:38 PM EST 01/18/2023 12:38 PM EST Vicky Porterjanicemonica LAB BLOOD ORDERABLES Performing Organization Address City/[facility] Co de Phone Number [facility] [address] [place] [address] * TSH WITH FREE T4 IF INDICATED (01/18/2023 12:38 PM EST) TSH 2.11 0.27 - 4.20 uIU/mL 01/19/2023 2:43 AM EST [facility] [place] Venous blood specimen / Unknown Venipuncture / Unknown 01/18/2023 12:38 PM EST 01/18/2023 12:38 PM EST Vicky Porterjanicemonica LAB BLOOD ORDERABLES Performing Organization Address City/[facility] Co de Phone Number [facility] [address] [place] [address] * COMPREHENSIVE METABOLIC PANEL (01/18/2023 12:38 PM EST) BUN 16 6 - 20 mg/dL 01/19/2023 2:02 AM EST [facility] Creatinine 0.9 0.6 - 1.2 mg/dL 01/19/2023 2:02 AM EST [facility] Estimated Glomerular Filtration Rate >90 >=60 mL/min 01/19/2023 2:02 AM EST [facility] Comment:eGFR is calculated b ased on the CKD-EPI 2020 equation Sodium 140 135 - 146 mmol/L 01/19/2023 2:02 AM EST [facility] Potassium 4.5 3.5 - 5.1 mmol/L 01/19/2023 2:02 AM EST [facility] Chloride 101 98 - 107 mmol/L 01/19/2023 2:02 AM EST [facility] CO2 24 22 - 32 mmol/L 01/19/2023 2:02 AM EST [facility] Anion Gap 15 7 - 15 mmol/L 01/19/2023 2:02 AM EST [facility] Glucose 98 70 - 120 mg/dL 01/19/2023 2:02 AM EST [facility] Albumin 4.8 3.8 - 5.0 g/dL 01/19/2023 2:02 AM EST [facility] AST 24 10 - 50 U/L 01/19/2023 2:02 AM EST [facility] Alkaline Phosphatase 80 35 - 130 U/L 01/19/2023 2:02 AM EST [facility] Bilirubin, Total 0.5 <=1.2 mg/dL 01/19/2023 2:02 AM EST [facility] Calcium 9.8 8.4 - 10.2 mg/dL 01/19/2023 2:02 AM EST [facility] Protein 7.2 6.0 - 8.3 g/dL 01/19/2023 2:02 AM EST [facility] ALT 44 10 - 50 U/L 01/19/2023 2:02 AM EST LABORATORY C Blood Venous blood specimen / Unknown Venipuncture / Unknown 01/18/2023 12:38 PM EST 01/18/2023 12:38 PM EST Vicky Jordan DO LAB BLOOD ORDERABLES [facility] [address] [place] [address] * LIPID PANEL WITH DIRECT LDL IF TG IS HIGH (01/18/2023 12:38 PM EST) Triglycerides 87 <=174 mg/dL 01/19/2023 2:02 AM EST [facility] [place]: Triglyceride Reference Ranges (mg/dL): <150 Acceptable 150-174 Borderline high 175-499 High >=500 Very high Cholesterol 166 <200 mg/dL 01/19/2023 2:02 AM EST [facility] [place]: Total Cholesterol Reference Ranges (mg/dL): <200 Desirable 200-239 Borderline high >=240 High HDL Cholesterol 53 >39 mg/dL 2:02 AM EST [facility] [place]: HDL Cholesterol Reference Ranges (mg/dL): >=60 High (Desirable) <50 Low (Undesirable) For Females <40 Low (Undesirable) For Males Non-HDL Cholesterol 113 <=159 mg/dL 01/19/2023 2:02 AM EST [facility] [place]: Non-HDL Cholesterol Reference Range (mg/dL): <100 Target level for high risk ASCVD patient <130 Optimal for general population 130-159 Near optimal for general population 160-189 Borderline High 190-219 High >=220 Very High LDL Cholesterol 96 <=129 mg/dL 01/19/2023 2:02 AM EST [facility] [place]: LDL Cholesterol Reference Ranges (mg/dL): <70 Target level for high risk ASCVD patient <100 Optimal for general population 100-129 Near optimal for general population 130-159 Borderline high 160-189 High >=190 Very high Blood Venous blood specimen / Unknown Venipuncture / Unknown 01/18/2023 12:38 PM EST 01/18/2023 12:38 PM EST Vicky Jordan DO LAB BLOOD ORDERABLES [facility] [place] [address] [place] [address] * EKG (01/18/2023 12:19 PM EST) 01/18/2023 12:1 9 PM EST Narrative Procedure Note Javier Crespo DO - 01/18/2023 12:19 PM EST REASON FOR STUDY: shortness of breath, MCCANN, chest pain CONCLUSIONS: Sinus rhythm with short GA High QRS voltage may be normal variant or due to lve Borderline ECG No previous ECGs available Ventricular Rate: 67 Atrial Rate: 67 GA Interval: 144 QRS Duration: 84 QT/QTc: 404/426 ms P-R-T [place]: 16 : 4 : 24 degrees Vicky Porterjanicemonica DO EKG [facility] documented in this encounter Visit Diagnoses Diagnosis Other chest pain- Primary MCCANN (dyspnea on exertion) Other dyspnea and respiratory abnormality History of atrial fibrillation Personal history of other diseases of circulatory system Gastroesophageal reflux disease, unspecified whether esophagitis present Alcohol use disorder History of tobacco use Personal history of tobacco use, presenting hazards to health Risk and functional assessment Screening for unspecified condition Screening for cardiovascular condition Screening for other and unspecified cardiovascular conditions Other chest pain MCCANN (dyspnea on exertion) Other dyspnea and respiratory abnormality documented in this encounter Care Teams Business Performance Manager Relationship Specialty Start Date End Date Edilberto Yanez DO [address] [place] [address] PCP - General Family Medicine 01/11/23 01/21/23 documented as of this encounter
--- OUTSIDE RECORDS SUMMARY | 2023-01-27 20:06 | External Medical Summary ---
Author Name Unknown Address Unknown Organization [id number]:[facility] [place] [address] [facility] [address] Laboratory Report Ordering Provider Test Date Status NIKI FERREIRA 01/18/2023 12:38:03 Final Observation Date Value Abnormality Reference (Units ) Status TSH 01/18/2023 12:38:03 2.11 0.27-4.20 (uIU/mL) Final Performing Location LABORATORY [facility] [place] [address] [facility] [address]
--- OUTSIDE RECORDS SUMMARY | 2023-01-27 20:06 | External Medical Summary | Summary of Care ---
Author Name Unknown Organization [facility] Address [address] [place] [address] Phone [phone] Care Team Providers Care Underwater Trapper Name Role Phone Vicky Jordan DO Primary Care Provider [phone] Reason for Referral * Precert (Within 10 days (routine)) - Authorized Specialty Diagnoses / Procedures Referred By Tabitha de la rosa Referred To Contact Cardiac Studies Diagnoses Exercise-induced angina PAF (paroxysmal atrial fibrillation) (HCC) Procedures ECHO, COMPLETE (2D), TRANS-THORACIC Jvaier Crespo DO [address] [place] [address] Referral ID Status Reason Start Date Expiration Date V isits Requested Visits Authorized [id number] Authorized Precert 01/23/2023 999 999 Reason for Visit * Reason Comments NEW PATIENT * Evaluate & Treat - Unlimited Visits (Within 3 days (urgent)) - Authorized Specialty Diagnoses / Procedures Referred By Tabitha de la rosa Referred To Contact Cardiovascular Medicine / Cardiology Diagnoses Other chest pain MCCANN (dyspnea on exertion) History of atrial fibrillation Vicky Jordan DO [address] [facility] [place] [address] Referral ID Status Reason Start Date Expiration Date Visits Requested Visits Authorized [id number] Authorized Specialty Services Required 3 999 999 Encounter Details Date Type Department Care Team (Late st Contact Info) Description 01/23/2023 1:30 PM EST Office Visit Cardiology, [facility] [address] [place] [address] Javier Crespo, DO [address] [place] [address] Exercise-induced angina*; PAF (paroxysmal atrial fibrillation) (HCC) Allergies No known active allergiesdocumented as of [...] MCG/0.3 mL, 12 YRS AND ABOVE, IM (CrowdProcess-Comirnaty) 01/18/2023 Pneumococcal Conjugate Vaccine, 20-valent (Prevn ar20) 01/18/2023 Seasonal Influenza Virus Vac cine, Unspecified Formulation 04/25/2019 TDAP (age 10 and older)(Boostrix) 01/18/2023 documented as of this encounter Social History Tobacco Use Types Packs/Day Years Used Date Smoking Tobacco: Former Cigarettes Q uit: 01/01/2023 Passive Smoke Exposure: Past Smokeless Tobacco: Never Tobacco Cessation:Counseling Given: Not Answered Alcohol Use Standard Drinks/Week Comments Yes 0 (1 standard drink = 0.6 oz pur e alcohol) 6-7 light beers nightly PHQ-2 Answer Date Recorded PHQ Adult Total Score 1 01/18/2023 Hunger Vital Sign Answer Date Recorded Within the past 12 months, y ou worried that your food would run out before you got the money to buy more. Never true 01/12/20 Within the past 12 months, t he [...] Sign Reading Time Taken Comments Blood Pressure 148/82 01/23/2023 1:10 PM EST Pulse 64 01/23/2023 1:10 PM EST Temperature - - Respiratory Rate - - Oxygen Saturation 94% 01/23/2023 1:10 PM EST Inhaled Oxygen Concentration - - Weight 111.6 kg (246 lb) 01/23/2023 1:10 PM EST Height - - Body Mass Index 35.81 01/18/2023 9:51 AM EST documented in this encounter Progress Notes * Javier Crespo DO - 01/23/2023 1:38 PM EST Cardiology Consultation Reason for consult: Chest pain, dyspnea on exertion, history of atrial fibrillation Referring physician: Dr. Vicky Jordan History of Present Illness: 63 year old male presents for evaluation of chest discomfort. Describessubsternal pain radiating between his shoulder blades consistently reproducible with activity and exertion. Particularly notes episodes when he rushes or walks on an incline. Symptoms consistently ass ociatedWith shortness of breath and relieved with rest. Denies any resting discomfort. Reports occasional episodes of back pain when lying down at night. This discomfort is different from his exertional chest pain. Denies personal history of coronary disease, congestive heart failure, diabetes, or h ypertension. Voices concern regarding brother recently diagnosed with coronary disease undergoing coronary artery bypass grafting x6. Smoking up until approximately 3 weeks ago when his chest discomfort became more severe. Denies orthopnea, PND, or lower extremity edema. ECG 01/18/2023: Sinus rhythm with short PA, high QRS voltage possible LVH. ECG today: Normal sinus rhythm, normal ECG Cardiac Studies: ECG, ZIO pending Past Medical History: GERD PAF Past Surgical History: Procedure Laterality Date INFORMATION mole removed as child, benign as far he is aware Family History: Brother with coronary artery disease status post coronary artery bypass grafting. Family History Problem Relation Age of Onset Diabetes Mother Hypertension Mother Cancer Father Prostate Hypertension Father Diabetes Father Hypertension Sister Cancer Sister Breast Heart Disorder Brother CABGx6 Stroke Brother Hypertension Brother Family Status Relation Status Mo (Not Specified) Fa (Not Specified) Sis (Not Specified) Sis Bro (Not Specified) Son Alive Son Alive Son Alive Dariana Alive Social History: Tobacco abuse with 50 pack-year history. Quit 3 weeks ago. Social History Socioeconomic History Marital status: Spouse name: Not on file Number of children: Not on file Years of education: Not on file Highest education level: Not on file Occupational History Not on file Tobacco Use Smoking status: Former Types: Cigarettes Quit date: 01/01/2023 Years since quittin.0 Passive exposure: Past Smokeless tobacco: Never Substance and Sexual Activity Alcohol use: Yes Comment: 6-7 light beers nightly Drug use: Not Currently Sexual activity: Not on file Other Topics Concern Not on file Social History Narrative Not on file Social Determinants of Health Financial Resource Strain: Not on file Food Insecurity: No Food Insecurity (01/11/2023) Hunger Vital Sign Worried About Running Out of Food in the Last Year: Never true Ran Out of Food in the Last Year: Never true Transportation Needs: Not on file Physical Activity: Not on file Stress: Not on file Social Connections: Not on file Intimate Partner Violence: Not on file Housing Stability: Not on file Social History Social History Narrative Not on file ROS: All others negative other than those noted in the HPI. Review of patient's allergies indicates: No Known Allergies Current Outpatient Medications Medication Sig Dispense Refill NATURAL SUPPLEMENT Fruits and Veggies - 3 capsules each daily in morning Pantoprazole Sodium 20 MG Oral Tablet Delayed Release (Protonix) Take 1 Tablet by mouth in the morning and 1 Tablet before bedtime. 30 minutes before the first meal of the day. Do not crush, split orchew the tablet. 60 Tablet 1 No current facility-administered medications for this visit. OBJECTIVE/PHYSICAL EXAMINATION: BP 148/82 | Pulse 64 | Wt 111.6 kg (246 lb) | SpO2 94% | BMI 35.81 kg/m | BSA 2.34 m General: NAD, AAO x3, well nourished. HEENT: Normocephalic. Atraumatic. Conjunctiva pink, no scleral icterus. No carotid bruits, the carotid upstrokes are brisk. No JVD. No HJR Heart: Regular normal S-1 and S-2 no S-3 or S-4 gallop. No murmurs or rubs appreciated. PMI is not displaced. No RV heave.Lungs: Clear bilateral without rales , rhonchi, or wheeze. Abdomen: Normal bowel sounds. Soft. Nontender. No masses or organomegaly. No abdominal bruits. Extremities: No clubbing, cyanosis, or edema.Pulses: radial=2/4, Dorsalis pedis =2/4, posterior tibial=2/4. Neuro: No focal deficits. IMPRESSION: 1. 63-year-old male presents with exertional chest discomfort suggestive of exertional angina. 2. HTN - uncontrolled 3. Dyslipidemia 4. History of paroxysmal atrial fibrillation 2020 without known recurrence. 5. Tobacco abuse RECOMMENDATIONS/PLAN: Pt inr Aptt Xr chest 2 views Cardiac cath-cardiology only Echo, complete (2d), trans-thoracic Return to work or school I had a long discussion with the patient and his regarding patient's symptoms suggestive of exertional angina. Recommend further ischemic evaluation with cardiac catheterization. Risks, benefits, and alternatives to procedure reviewed. Patient agreeable to proceed. Provided with prescription for Toprol-XL, low-dose aspirin, statin therapy, and sublingual nitroglycerin. Instructed regarding appropriate use of sublingual nitro and when to seek further attention in the emergency department. Pre cardiac catheterization labs and x-ray ordered. Procedure scheduled with the undersigned Thursday January 26, 2023. Follow Up: Return in about 3 months (around 04/25/2023). I spent a total of Greater than 55 mins (exact time 57 mins) on the date of service in preparation,delivery, and documentation of the care provided to Gildardo Mercer excluding any time spent in theperformance of separately billed services. Javier Crespo DO, [facility] Associate Cardiology - [facility] documented in this encounter Nursing Notes * María Stewart CMA - 01/23/2023 1:08 PM EST Examination Room: 13 Name: Gildardo Mercer Date of : (1960) Reason for Visit: new pt Interim Hospitalization(s): none Problems/Concerns: denied Chest Pain/SOB: chest pain on exertion and MCCANN. My [facility] is a way you can talk to your provider online through e-mail. Would you like to sign up? I can activate it for you? ALREADY ACTIVE Patient was instructed to not get up on the exam table until directed and assisted by their provider; patient is to remain seated in the chair/ wheelchair/ exam table for fall prevention and safety reasons. Patient is aware to have assistance to step down off exam table with personnel. Patient voiced full comprehension of instructions. documented in this encounter Plan of Treatment Upcoming Encounters Date Type Department Care Team (Late st Contact Info) Description 01/23/2023 2:45 PM EST Imaging Radiology [facility] 1st Floor, [address] [place] [address] Arrived 01/23/2023 2:50 PM EST Laboratory Laboratory, [address] [place] [phone] Gabriel Armenta [address] [place] [address] Exercise-induced angina; PAF (paroxysmal atrial fibrillation) ([facility]) 01/24/2023 9:15 AM EST Cardiac Studies Cardiac Studies, [address] [place] [address] 04/25/2023 3:00 PM EST Office Visit Cardiology, [facility] [address] [place] [address] Edel Sosa PA-C [address] [facility] [place] [address] Pending Results Name Type Priority Associated Diagnoses Date /Time PT INR Lab Routine Exercise-induced angina PAF (paroxysmal atrial fibrillation) ([facility]) 01/23/2023 2:36 PM EST APTT Lab Routine Exercise-induced angina PAF (paroxysmal atrial fibrillation) ([facility]) 01/23/2023 2:36 PM EST Scheduled Orders Name Type Priority Associated Diagnoses Orde r Schedule CARDIAC CATH-CARDIOLOGY ONLY Procedures Routine Exercise-induced angina PAF (paroxysmal atrial fibrillation) ([facility]) Ordered: 01/23/2023 XR CHEST 2 VIEWS Medical Imaging STAT Exercise-induced angina PAF (paroxysmal atrial fibrillation) ([facility]) Ordered: 01/23/2023 PT INR Lab Routine Exercise-induced angina PAF (paroxysmal atrial fibrillation) ([facility]) Expected: 01/23/2023, Expires: 01/24/2024 APTT Lab Routine Exercise-induced angina PAF (paroxysmal atrial fibrillation) ([facility]) Expected: 01/23/2023, Expires: 01/24/2024 ECHO, COMPLETE (2D), TRANS-THORACIC Echocardiology Routine Exercise-induced angina PAF (paroxysmal atrial fibrillation) ([facility]) Expected: 01/23/2023 (Approximate), Expires: 02/22/2025 EKG EKG Routine PAF (paroxysmal atrial fibrillation) ([facility]) Ordered: 01/23/2023 Health Maintenance Due Date Last Done Comments [...] of this encounter Visit Diagnoses Diagnosis Exercise-induced angina- Primary Other and unspecified angina pectoris PAF (paroxysmal atrial fibrillation) (HCC) Atrial fibrillation Exercise-induced angina Other and unspecified angina pectoris PAF (paroxysmal atrial fibrillation) (HCC) Atrial fibrillation documented in this encounter Care Teams Underwater Trapper Relationship Specialty Start Date End Date Vicky Jordan DO [address] [place] [address], [place] [address] PCP - General Family Medicine 01/22/23 documented as of this encounter"
--- OUTSIDE RECORDS SUMMARY | 2023-01-27 20:06 | External Medical Summary ---
Author Name Unknown Address Unknown Organization K01:[facility] [place] [address] [place] [address] Laboratory Report Ordering Provider Test Date Status NIKI FERREIRA 01/18/2023 12:38:03 Final Observation Date Value Abnormality Reference (Units ) Status Vitamin B12 01/18/2023 12:38:03 [phone] (pg/mL) Final Performing Location [facility] - [address] [place] [address]
--- OUTSIDE RECORDS SUMMARY | 2023-01-27 20:06 | External Medical Summary ---
Author Name Unknown Address Unknown Organization K01:[facility] - [address] [place] [address] Laboratory Report Ordering Provider Test Date Status NIKI FERREIRA 01/18/2023 12:38:03 Final Observation Date Value Abnormality Reference (Units ) Status Magnesium 01/18/2023 12:38:03 2.3 1.5-2.6 (m g/dL) Final Performing Location [facility] - [address] [place] [address]
--- OUTSIDE RECORDS SUMMARY | 2023-01-27 20:06 | External Medical Summary ---
Author Name Unknown Address Unknown Organization K01[place] [place] [address] [facility] [place] [address] Laboratory Report Ordering Provider Test Date Status RON FERREIRAKIRITDERIC 01/18/2023 12:38:03 Final Observation Date Value Abnormality Reference (Units ) Status Triglyceride 01/18/2023 12:38:03 87 <=174 ( mg/dL) Final Triglyceride Reference Range s (mg/dL):
<150 Acceptable
150-174 Borderline high
175-499 High
>=500 Very high Cholesterol 01/18/2023 12:38:03 166 <200 (mg /dL) Final Total Cholesterol Reference Ranges (mg/dL):
<200 Desirable
200-239 Borderline high
>=240 High HDL 01/18/2023 12:38:03 53 >39 (mg/dL ) Final HDL Cholesterol Reference Ra nges (mg/dL):
>=60 High (Desirable)
<50 Low (Undesirable) For Females
<40 Low (Undesirable) For Males NON-HDL CHOLESTEROL 01/18/2023 12:38:03 113 <=159 (mg/dL) Final Non-HDL Cholesterol Referenc e Range (mg/dL):
<100 Target level for high risk ASCVD patient
<130 Optimal for general population
130-159 Near optimal for general population
160-189 Borderline High
190-219 High
>=220 Very High LDL, (calculated) 01/18/2023 12:38:03 96 <= 129 (mg/dL) Final LDL Cholesterol Reference Ra nges (mg/dL):
<70 Target level for high risk ASCVD patient
<100 Optimal for general population
100-129 Near optimal for general population
130-159 Borderline high
160-189 High
>=190 Very high Performing Location [facility] [place] [address] [facility] [address]
--- OUTSIDE RECORDS SUMMARY | 2023-01-27 20:06 | External Medical Summary ---
Author Name Unknown Address Unknown Organization K01:[facility]ATORY [facility] [place] [address] [place] [facility] [place] [address] Laboratory Report Ordering Provider Test Date Status JHONNIKI 01/18/2023 12:38:03 Final Observation Date Value Abnormality Reference (Units ) Status SYNC LEUKOCYTES IN BLOOD BY AUTOMATED COUNT 01/18/2023 12:38:03 9.06 4.00-10.80 (K/uL) Final Segs 01/18/2023 12:38:03 68.7 40.0-75.0 (%) Final Lymphs % 01/18/2023 12:38:03 20.5 18.0-42.0 (%) Final Monos 01/18/2023 12:38:03 8.1 1.0-11.0 (%) Final Eosinophils 01/18/2023 12:38:03 1.4 0.0-6.0 (%) Final Basos 01/18/2023 12:38:03 0.7 0.0-2.0 (%) Final Immature Granulocyte, Percent 01/18/2023 12:38:03 0.6 0.0-2.0 (%) Final Absolute Segs 01/18/2023 12:38:03 6.23 1.80-7.70 (K/uL) Final Lymphs, absolute 01/18/2023 12:38:03 1.86 1.00-4.80 (K/ul) Final Monos, Abs 01/18/2023 12:38:03 0.73 0.00-1.10 (K/uL) Final Eos, Abs 01/18/2023 12:38:03 0.13 0.00-0.70 (K/uL) Final Basos, Abs 01/18/2023 12:38:03 0.06 0.00-0.20 (K/uL) Final Immature Granulocytes, Number 01/18/2023 12:38:03 0.05 0.00-0.20 (K/uL) Final Performing Location LABORATORY [facility] [place] [address] [facility] [address]
--- OUTSIDE RECORDS SUMMARY | 2023-01-27 20:06 | External Medical Summary | Summary of Care ---
Author Name Unknown Organization [facility] Address [address] [facility] [place] [address] Phone [phone] Care Team Providers Care Leaf Blender Name Role Phone Edilberto Yanez DO Primary Care Provider [phone] Reason for Visit * Reason Onset Date Comments Immunizations 01/18/2023 Dosage Adjustment In Person (Anticoag Clinic) Medication Management Encounter Details Date Type Department Care Team (Late st Contact Info) Description 01/18/2023 9:40 AM EST Pharmacy Family Practice [address] [address] College, Pharmacist [address] [address] Encounter for long-term (current) use of medications*; Need for izmwwgqvhc-mqefqec-frt tussis (Tdap) vaccine; Need for pneumococcal vaccination; COVID-19 vaccine administered Allergies No known active allergiesdocumented as of this encounter (statuses as of 01/19/2023) Medications Medication Sig Dispensed Refills Start Date End Date Status Mducwfk-Vqmkke-Ypyjq Pertussis 5-2.5-18.5 LF-MCG/0.5 Suspension Prefilled Syringe (Boostrix)Indications :Need for sqeaqqcrcy-nvcjfnb-lf rtussis (Tdap) vaccine Inject 0.5 mL into a large muscle once for 1 dose. 0.5 mL 0 01/18/2023 01/19/2023 Active documented as of this encounter (statuses as of 01/19/2023) Active Problems No known active problems documented as of this encounter (statuses as of 01/19/2023) Immunizations Name Administration Dates Next Due COVID-19 [...] pur e alcohol) 6-7 light beers nightly Sex and Gender Information Value Date Recorded Sex Assigned at Not on file Gender Identity Not on file Sexual Orientation Not on file Job Start Date Occupation Industry Not on file Not on file Not on file documented as of this encounter Patient Instructions * Patient Instructions* Shadia Easton, [facility] - 01/18/2023 10:27 AM EST ~~PATIENT INSTRUCTIONS FOR TDAP VACCINE~~ Possible side effects of TDAP vaccine, (tetanus shot), are usually mild and can include: 1. Soreness or redness at injection site 2. Low grade fever 3. Body aches You may use a fever / pain reducing medication as needed for these symptoms. LET YOUR DOCTOR KNOW IMMEDIATELY IF YOU HAVE DIFFICULTY BREATHING OR SWALLOWING, EXPERIENCE ITCHINGOF FEET OR HANDS, HAVE SWELLING OF EYES, FACE OR INSIDE OF NOSE. ~~PATIENT INSTRUCTIONS FOR PNEUMOCOCCAL VACCINE~~ Possible side effects of pneumococcal vaccine, (pneumonia shot), are usually mild and can include: 1. Soreness or redness at injection site 2. Low grade fever 3. Body aches You may use Tylenol/Acetaminophen as needed for these symptoms. LET YOUR DOCTOR KNOW IMMEDIATELY IF YOU HAVE DIFFICULTY BREATHING OR SWALLOWING, EXPERIENCE ITCHINGOF FEET OR HANDS, HAVE SWELLING OF EYES, FACE OR INSIDE OF NOSE. documented in this encounter Progress Notes * Shadia Easton [facility] - 01/18/2023 10:27 AM EST Medication Therapy [facility] - Medication Reconciliation Gildardo Mercer is an 63 year old being seen for medication reconciliation. Prescription insurance information: LADARIUS Pritchett Do you have any other prescription coverage: No Preferred pharmacy: [facility] ([facility]) - enrolling today. [x] Problem list reviewed [x] Allergies reviewed and updated if needed [x] Drug interaction check completed [x] HEDIS list addressed Immunizations: Facilitated Administration Of: Pneumonia, Tdap, and COVID. Doesn't get flu shots. Will think about shingrix. Medication Organization/Adherence: Has home care nurse or caregiver: no Patient uses a pill box? No - no chronic medications other than OTC omeprazole Labs/Vitals/Risk Scores: The ASCVD Risk score (Kandy DK, et al., 2019) failed to calculate for the following reasons: Cannot find a previous HDL lab Cannot find a previous total cholesterol lab BP Readings from Last 3 Encounters: 01/18/23 138/88 No results for input(s): "HGBA1C" in the last 00093 hours. No results for input(s): "EGFR" in the last 45720 hours. Creatinine clearance cannot be calculated (No successful lab value found.) Assessment & Plan: Medication discrepancies identified: Removed all prior medications. Added omeprazole. Dose/frequency of medications appropriate for current renal function? unknown Other medication problems identified: recent hx of heavy ibuprofen use and now reports of GERD/chest pain. Recently quit smoking 17 days ago cold turkey. Patient education provided: regarding vaccines Referral pended for follow up management of: N/A Summary- Changes & Recommendations: Med rec completed with patient. Administered covid, prevnar 20 and tdap. Patient enrolled in mail order at his request. Repeat med rec visit in 1 year Shadia Tellez RPh Clinical Pharmacist - First Officer [facility] 01/18/2023, 11:14 AM Immunization Administration Documentation Time Out Procedure Performed: Yes Patient Identified (Ask Name/Date of ): Yes Does the patient have a fever greater than 101 degrees today? No Patient allergic to latex? No VFC Stock: No Immunization(s) verified: Yes, Immunization Name: Prevnar 20 (PCV20), Tdap (Boostrix), and COVID, VIS Sheet(s) given: Yes Verified Side and Site: Yes Verified Shot(s) with Parent(s)/Patient: Yes Tdap covered under Medicare Part D, prescription order pended for physician to sign. Shadia Tellez RPh documented in this encounter Plan of Treatment Health Maintenance Due Date Last Done Comments [...] as of this encounter Visit Diagnoses Diagnosis Encounter for long-term (current) use of medications- Primary Encounter for long-term (current) use of other medications Need for fsnkhpvdwg-axakfea-hvuatlusa (Tdap) vaccine Need for prophylactic vaccination with combined mnaurszlac-lnmmqok-lpxeyerul (DTP) vaccine Need for pneumococcal vaccination Need for prophylactic vaccination against streptococcus pneumoniae (pneumococcus) COVID-19 vaccine administered documented in this encounter Care Teams Leaf Blender Relationship Specialty Start Date End Date Edilberto Yanez DO [address] [address] PCP - General Family Medicine 01/11/23 documented as of this encounter
--- OUTSIDE RECORDS SUMMARY | 2023-01-27 20:06 | External Medical Summary | Summary of Care ---
Author Name Unknown Organization [facility] Address [address] [place] [address] Phone [phone] Care Team Providers Care Hand Meat Salter Name Role Phone Beau Edilberto Bright NESBITT Primary Care Provider [phone] Reason for Visit * Reason Onset Date Comments Insurance 01/11/2023 63 Fwd Tour-requ irements Encounter Details Date Type Department Care Team (Late st Contact Info) Description 01/11/2023 Telephone Family Practice [address] [place] [phone] Vicky Jordan DO [address] [place] [address] Insurance (63 Fwd Tour-requirements) Social History Tobacco Use Types Packs/Day Years Used Date Smoking Tobacco: Never Assessed Sex and Gender Information Value Date Recorded Sex Assigned at Not on file Gender Identity Not on file Sexual Orientation Not on file Job Start Date Occupation Industry Not on file Not on file Not on file documented as of this encounter Miscellaneous Notes * Telephone Encounter - Isatu Moran OSA - 01/11/2023 1:43 PM EDT Discussed GOLD requirement, patient acknowledges and understands. Pt aware of gold requirements. Tour given today, 01.11.23 by myself Pt scheduled w Dr Jordan on 01.18.23 documented in this encounter Plan of Treatment Upcoming Encounters Date Type Department Care Team (Late st Contact Info) Description 01/18/2023 9:40 AM EST Pharmacy Family Practice [address] [place] [address] College, Pharmacist [address] [address] 01/18/2023 10:00 AM EST Office Visit Family Practice 65 [facility] [address] [place] [phone] Vicky Jordan DO [address] [place] [address] Health Maintenance Due Date Last Done Comments Lipid Panel 1958 COVID-19 Vaccine (#1) 1958 Depression Screening 1970 HIV Screening 1973 Hepatitis C Screening 01/14/1976 DTaP,Tdap,and Td Vaccines (1 - Tdap) 1977 Cologuard 2003 Colonoscopy 2003 Colorectal Cancer Screening 2003 Fecal Occult Blood Test 2003 Sigmoidoscopy 2003 Zoster Vaccines (1 of 2) 01/14/2008 Influenza Vaccine (FLU shot) (#1) 2022 GARDASIL-HPV IMMUNIZATION SERIES Aged Out No longer eligible based on patient's age to complete this topic Hepatitis B Aged Out No longer eligi ble based on patient's age to complete this topic MENINGOCOCCAL (MENACTRA/MENVEO) Aged Out No longer eligible based on patient's age to complete this topic Pneumococcal Vaccine: Pediat rics (0 to 5 Years) and At-Risk Patients (6 to 64 Years) Aged Out No longer eligible b ased on patient's age to complete this topic documented as of this encounter Medical Devices Not on filedocumented as of this encounter Care Teams Hand Meat Salter Relationship Specialty Start Date End Date Edilberto Yanez DO [address] [facility] [address] [place] [address] PCP - General Family Medicine 01/11/23 documented as of this encounter
--- OUTSIDE RECORDS SUMMARY | 2023-01-27 20:06 | External Medical Summary ---
Author Name Unknown Address Unknown Organization [id number]:LABORATORY [facility] [place] - [facility] [address] [facility] [address] Laboratory Report Ordering Provider Test Date Status RON FERREIRAKIRITDERIC 01/18/2023 12:38:03 Final Observation Date Value Abnormality Reference (Units ) Status WBC, Total 01/18/2023 12:38:03 9.06 4.00-10.80 (K/uL) Final RBC 01/18/2023 12:38:03 4.93 4.50-5.25 (M/uL) Final Hemoglobin 01/18/2023 12:38:03 16.6 14.0-16.8 (g/dL) Final HCT 01/18/2023 12:38:03 49.5 Above high normal 40.0-48.4 (%) Final MCV 01/18/2023 12:38:03 100.4 82.0-99.5 (fL) Final MCH 01/18/2023 12:38:03 33.7 27.0-34.0 (pg) Final MCHC 01/18/2023 12:38:03 33.5 32.0-36.0 (g/dL) Final RDW 01/18/2023 12:38:03 13.1 11.5-15.5 (%) Final Platelets 01/18/2023 12:38:03 215 140-400 (K/uL) Final MPV 01/18/2023 12:38:03 11.5 6.6-11.1 (fL) Final Nucleated erythrocytes/100 leukocytes [Ratio] in Blood by Automated count 01/18/2023 12:38:03 0 <=0 (/100 WBCs) Final Performing Location LABORATORY [facility] - [address] [facility] [address]
== END 2023-01-26 23:20 | disposition short-term general hospital (02) | DRG 287 ==
LOC: CC 08:40 → 2S 11:02

== ENCOUNTER 2023-02-01 21:29 | Inpatient (IN) ==
--- OUTSIDE RECORDS SUMMARY | 2023-02-01 21:36 | External Medical Summary | Summary of Care ---
Author Name Unknown Organization [facility] Address [address] [place] [address] Phone [phone] Care Team Providers Care Barrel Rifler Button Name Role Phone BobbyVicky anderson Jony NESBITT Primary Care Provider Encounter Details Date Type Department Care Team (Late st Contact Info) Description 01/30/2023 CardioDiagnostic Study Cardiology [facility] [place] [address] [place] [address] Sukhwinder Smith DO [address] [place], [place] [id number] EKG Report Allergies No known active allergiesdocumented as of this encounter (statuses as of 01/31/2023) Medications Medication Sig Dispensed Refills Start Date [...] the tablet. 60 Tablet 1 01/18/2023 Active Nitroglycerin 0.4 MG Sublingual Tablet Sublingual (Nitrostat) Place 1 Tablet under the tongue every 5 minutes as needed for chest pain up to 3 doses in 15 minutes 25 Tablet 11 01/23/2023 Active Aspirin 81 MG Oral Tablet Chewable Take 1 Tablet by mouth in the morning for 7 days. 7 Tablet 0 01/30/2023 02/06/2023 Active Atorvastatin Calcium 80 MG Oral Tablet (Lipitor) Take 1 Tablet by mouth every afternoon. 90 Tablet 1 01/30/2023 Active amLODIPine Besylate 5 MG Oral Tablet (Norvasc) Take 1 Tablet by mouth in the morning. 90 Tablet 1 01/31/2023 Active Clopidogrel Bisulfate 75 MG Oral Tablet (pLAVix) Take 1 Tablet by mouth in the morning. Do not start before January 31, 2023. 90 Tablet 1 01/31/2023 Active Lisinopril 5 MG Oral Tablet (Prinivil) Take 1 Tablet by mouth in the morning. 90 Tablet 1 01/31/2023 Active Carvedilol 6.25 MG Oral Tablet (Coreg) Take 1 Tablet by mouth 2 times a day with morning and evening meals. 180 Tablet 1 01/30/2023 Active Apixaban 5 MG Oral Tablet (Eliquis)Indication s:Paroxysmal A-fib (HCC) Take 1 Tablet by mouth in the morning and 1 Tablet before bedtime. 180 Tablet 2 01/30/2023 10/27/2023 Active documented as of this encounter (statuses as of 01/31/2023) Active Problems Problem Noted Date Diagnosed Date Prediabetes 01/29/2023 Paroxysmal A-fib 01/29/2023 GERD (gastroesophageal reflux disease) 3 Coronary artery disease of n ative artery of [place] heart with stable angina pectoris 01/27/2023 documented as of this encounter (statuses as of 01/31/2023) Resolved Problems Problem Noted Date Diagnosed Date Resolved Date NSTEMI (non-ST elevated myoc ardial infarction) 01/29/2023 01/30/2023 documented as of this encounter (statuses as of 01/31/2023) Immunizations Name Administration Dates Next Due COVID-19 mRNA, LNP-s, No Pre serve, 2-Dose Series (Moderna) 06/12/2020,05/15/2020 COVID-19, MRNA-LNP, 23-24, P F, 30 MCG/0.3 mL, 12 YRS AND ABOVE, IM ([facility]) 01/18/2023 Pneumococcal Conjugate Vaccine, 20-valent (Prevn ar20) [...] on file documented as of this encounter Functional Status Functional Status Response Date of Assess ment Are you deaf or do you have serious difficulty h earing? No 01/27/2023 Are you blind or do you have serious difficulty seeing, even when wearing glasses? No 01/27/2023 Do you have serious difficul ty walking or climbing stairs? (5 years old or older) No 01/27/2023 Do you have difficulty dress ing or bathing? (5 years old or older) No 01/27/2023 Because of a physical, menta l, or emotional condition, do you have difficulty doing errands alone such as visiting a doctor s office or shopping? (15 years old or older) No 01/28/20 Cognitive Status Response Date of Assessm ent Because of a physical, menta l, or emotional condition, do you have serious difficulty concentrating, remembering, or making decisions? (5 years old or older) No 01/27/2023 documented as of this encounter Procedure Notes * Gabriel Anthony MD - 01/30/2023 8:03 AM ESTAssociated Order(s): EKG REPORT REASON FOR STUDY: post cat CONCLUSIONS: Sinus bradycardia Otherwise normal ECG When compared with ECG of 29-JAN-2023 15:44, (unconfirmed) AZ interval has increased Ventricular Rate: 51 Atrial Rate: 51 [place] Interval: 148 QRS Duration: 86 QT/QTc: 432/398 ms P-R-T Harper: 39 : 29 : 64 degrees documented in this encounter Plan of Treatment Upcoming Encounters Date Type Department Care Team (Late st Contact Info) Description 02/06/2023 2:00 PM EST Office Visit [facility] [address] [facility] [address] Edel Sosa PA-C [address] [place] [address] 03/23/2023 10:00 AM EST Office Visit Family Practice [address] [place] [address] [address] [place] [address] Vicky Jordan DO [address] [place] [address] 04/25/2023 3:00 PM EST Office Visit [facility], [facility] [address] [facility] [place] [address] Edel Sosa PA-C [address] [place] [address] Health Maintenance Due Date Last Done Comments HIV Screening 1973 Cologuard 2003 Colonoscopy 2003 Colorectal Cancer Screening 2003 Fecal Occult Blood Test 2003 Sigmoidoscopy 2003 Zoster Vaccines (1 of 2) 01/14/2008 Influenza Vaccine (FLU shot) (#1) 2022 04/25/2019 AAA Screening 2023 Depression Screening 01/19/2024 01/18/2023 HbA1c 01/29/2024 01/28/2023 DTaP,Tdap,and Td Vaccines (2 - Td or [...] documented as of this encounter Medical Devices Implanted Type Area De Icer Element Winder Device Identifier Shelf Expiration Date Model / Serial / Lot Stent Xience Skypoint [id number] - [id number] Implanted:Qty: 1 on 01/29/2023 by Chris Khan DO at [facility] : VASCULAR DEVICES 07/05/2025 [id number] / / [id number] documented as of this encounter Procedures Procedure Name Priority Date/Time Associated Diagnosis Comments EKG REPORT 01/30/2023 8:03 AM EST documented in this encounter Results * EKG REPORT (01/30/2023 8:03 AM EST) 01/30/2023 8:03 AM EST Narrative Procedure Note Gabriel Anthony MD - 01/30/2023 8:03 AM EST REASON FOR STUDY: post cat CONCLUSIONS: Sinus bradycardia Otherwise normal ECG When compared with ECG of 29-JAN-2023 15:44, (unconfirmed) [place] interval has increased Ventricular Rate: 51 Atrial Rate: 51 [place] Interval: 148 QRS Duration: 86 QT/QTc: 432/398 ms P-R-T Harper: 39 : 29 : 64 degrees Sukhwinder Smith DO EKG documented in this encounter Advance Directives Latest Code Status on File Code Status Date Activated Date Inactivated Comments Full Code 01/27/2023 2:07 AM 01/30/2023 6:33 PM Thi s order reflects the patients wishes and were consensually agreed upon. Question Answer Comments Discussion of Advance Directives occurred with: Patient Care Teams Barrel Rifler Button Relationship Specialty Start Date End Date Vicky Jordan DO [address] [place] [address], [place] [address] PCP - General Family Medicine 01/22/23 documented as of this encounter
--- OUTSIDE RECORDS SUMMARY | 2023-02-01 21:37 | External Medical Summary ---
Author Name Unknown Address Unknown Organization [id number]:LABORATORY [facility] - [address] [place] [address] Laboratory Report Ordering Provider Test Date Status SHAKIRA ABERNATHY 01/29/2023 05:36:00 Final Observation Date Value Abnormality Reference (Units ) Status Magnesium 01/29/2023 05:36:00 2.1 1.5-2.6 (m g/dL) Final Performing Location LABORATORY [facility] - [address] [place] [address]
--- OUTSIDE RECORDS SUMMARY | 2023-02-01 21:37 | External Medical Summary ---
Author Name Unknown Address Unknown Organization [id number]:[facility] [place] [address] [place] [address] Laboratory Report Ordering Provider Test Date Status ADITI PANIAGUA 01/28/2023 03:49:00 Final Observation Date Value Abnormality Reference (Units ) Status Body temperature 01/28/2023 03:49:00 37.0 (C) Final pH of Venous blood 01/28/2023 03:49:00 7.445 Above high normal 7.320-7.430 (units) Final Carbon dioxide [Partial pressure] in Venous blood 01/28/2023 03:49:00 37.7 Below low normal 40.0-60.0 (mmHg) Final Oxygen [Partial pressure] in Venous blood 01/28/2023 03:49:00 50.9 Above high normal 25.0-50.0 (mmHg) Final Base excess, Capillary 01/28/2023 03:49:00 2.1 Above high normal -2.0-2.0 (mmol/L) Final Hemoglobin [Mass/volume] in Blood by Oximetry 01/28/2023 03:49:00 16.1 14.0-16.8 (g/dL) Final Oxyhemoglobin, Venous (FO2HB) 01/28/2023 03:49:00 84.9 40.0-85.0 (% total Hgb) Final Carboxyhemoglobin 01/28/2023 03:49:00 1.5 <=1.5 (% total Hgb) Final Smokers: 0-9.0 % Methemoglobin 01/28/2023 03:49:00 0.4 <= 1.5 (% total Hgb) Final Deoxyhemoglobin/Hemoglo bin.total in Venous blood 01/28/2023 03:49:00 13.2 (% total Hgb) Final Oxygen content in Venous blood 01/28/2023 03:49:00 19.1 Above high normal 7.0-18.0 (%vol) Final Bicarbonate, Venous, POC (i-STAT) 01/28/2023 03:49:00 25.5 23.0-31.0 (mmol/L) Final Performing Location [facility] [address] [facility] [address]
--- OUTSIDE RECORDS SUMMARY | 2023-02-01 21:37 | External Medical Summary ---
Author Name Unknown Address Unknown Organization [id number]:LABORATORY [facility] [place] - [address] [place] [address] Laboratory Report Ordering Provider Test Date Status AGUSTIN BARNEY 01/30/2023 06:52:00 Final Observation Date Value Abnormality Reference (Units ) Status BUN 01/30/2023 06:52:00 18 6-20 (mg/dL) Final Creatinine 01/30/2023 06:52:00 0.9 0.6-1.2 (mg/dL) Final Glomerular filtration rate/1.73 sq M.predicted [Volume Rate/Area] in Serum, Plasma or Blood by Creatinine-based formula (CKD-EPI) 01/30/2023 06:52:00 >90 >=60 (mL/min) Final eGFR is calculated based on the CKD-EPI 2020 equation SODIUM 01/30/2023 06:52:00 137 135-146 (m mol/L) Final Potassium 01/30/2023 06:52:00 4.3 3.5-5.1 (m mol/L) Final Cl 01/30/2023 06:52:00 101 98-107 (mm ol/L) Final CO2 01/30/2023 06:52:00 24 22-32 (mmo l/L) Final Anion gap 01/30/2023 06:52:00 12 7-15 (mmol /L) Final Glucose 01/30/2023 06:52:00 105 70-120 (mg /dL) Final Calcium 01/30/2023 06:52:00 9.7 8.4-10.2 ( mg/dL) Final Performing Location LABORATORY [facility] - [address] [place] [address]
--- OUTSIDE RECORDS SUMMARY | 2023-02-01 21:37 | External Medical Summary ---
Author Name Unknown Address Unknown Organization [id number]:LABORATORY [facility] [place] - [address] [place] [address] Laboratory Report Ordering Provider Test Date Status AGUSTIN BARNEY 01/27/2023 02:31:00 Final Observation Date Value Abnormality Reference (Units ) Status Heparin, unfractionated level 01/27/2023 02:31:00 <0.10 <0.10 (IU/mL) Final Unfractionated therapeutic r anges for Anti Xa activity:
For Cardiac/Neurologic treatment: 0.3 to 0.6 IU/mL.
For treatment of DVT or Pulmonary Embolism: 0.3 to 0.7 IU/mL. Performing Location LABORATORY [facility] [place] - [address] [place] [address]
--- OUTSIDE RECORDS SUMMARY | 2023-02-01 21:37 | External Medical Summary ---
Author Name Unknown Address Unknown Organization K01:LABORATORY [facility] [place] - [address] [place] [address] Laboratory Report Ordering Provider Test Date Status ADITI PANIAGUA 01/28/2023 03:49:00 Final Observation Date Value Abnormality Reference (Units ) Status Troponin T 01/28/2023 03:49:00 26 Above high normal < =22 (ng/L) Final Performing Location LABORATORY C - [address] [place] [address]
--- OUTSIDE RECORDS SUMMARY | 2023-02-01 21:37 | External Medical Summary ---
Author Name Unknown Address Unknown Organization : Laboratory Report Ordering Provider Test Date Status JABIER CHILDS 01/29/2023 13:51:10 Final NORMAL (NON-HEPARINIZED) 74- 137 SECONDS
HEPARINIZED 200+ SECONDS
CRITICAL GREATER THAN 1000 SECONDS
null Observation Date Value Abnormality Reference (Units ) Status Kaolin activated time [Units/volume] in Blood 01/29/2023 13:51:10 353 50-1000 (secs) Final Performing Location
--- OUTSIDE RECORDS SUMMARY | 2023-02-01 21:37 | External Medical Summary ---
Author Name Unknown Address Unknown Organization [id number]:LAB[facility]ATORY [facility] [place] [address] [facility] [address] Laboratory Report Ordering Provider Test Date Status AGUSTIN BARNEY 01/27/2023 03:03:13 Final SCREENING Observation Date Value Abnormality Reference (Units ) Status SARS Coronavirus 2 01/27/2023 03:03:13 Negative N egative Final No SARS-CoV2 Coronavirus RNA detected by PCR (amplified probe).
This express test was developed and its performance characteristics determined by [facility]. It has not been cleared or approved by the U.S. Food and Drug Administration (FDA). FDA does not require this test to go thru premarket FDA review. This test is used for clinical purposes. It should not be regarded as investigational or for research. This laboratory is certified under the Clinical Laboratory Improvement Amendments (CLIA) as qualified to perform high complexity clinical laboratory testing.

This test is a nucleic acid amplification test (NAAT), a reverse transcriptase polymerase chain reaction (RT-PCR) test, or a Centers for Disease Control-acceptable equivalent. The test is performed in a high complexity Clinical Laboratory Improvement Amendments-(CLIA) certified laboratory. The test is acceptable for SARS-CoV-2 diagnosis, surveillance, and travel within the [place] and to most countries. Please check with local testing authorities about requirements before travel.

The validation of bronchial specimens, tracheal aspirates, and sputum for this assay was developed and performance characteristics determined by [facility]. The validation of alternate specimen types has not been cleared or approved by the U.S. Food and Drug Administration (FDA). It has been determined that such clearance is not necessary. Influenza virus A RNA [Prese nce] in Specimen by TJ with probe detection 01/27/2023 03:03:13 Negative Negative Final No Influenza A RNA detected by PCR (amplified probe) Influenza virus B RNA [Prese nce] in Specimen by TJ with probe detection 01/27/2023 03:03:13 Negative Negative Final No Influenza B RNA detected by PCR (amplified probe) Respiratory syncytial virus RNA [Identifier] in Specimen by TJ with probe detection 01/27/2023 03:03:13 Negative Negative Final No Respiratory Syncytial Vir us RNA detected by PCR (amplified probe) Performing Location LABORATORY [address] [facility] [place] [address]
--- OUTSIDE RECORDS SUMMARY | 2023-02-01 21:37 | External Medical Summary ---
Author Name Unknown Address Unknown Organization K01:LABORATORY [facility] - [address] [place] [address] Laboratory Report Ordering Provider Test Date Status SHAKIRA ABERNATHY 01/28/2023 03:49:00 Final Observation Date Value Abnormality Reference (Units ) Status Phosphate 01/28/2023 03:49:00 3.5 2.5-4.8 (m g/dL) Final Performing Location LABORATORY [facility] - [address] [place] [address]
--- OUTSIDE RECORDS SUMMARY | 2023-02-01 21:37 | External Medical Summary ---
Author Name Unknown Address Unknown Organization : Laboratory Report Ordering Provider Test Date Status JABIER CHILDS 01/28/2023 03:49:00 Final Observation Date Value Abnormality Reference (Units ) Status Performing Location
--- OUTSIDE RECORDS SUMMARY | 2023-02-01 21:37 | External Medical Summary ---
Author Name Unknown Address Unknown Organization [id number]:[place] [facility] [place] [facility] [address] [place] [address] Laboratory Report Ordering Provider Test Date Status AMADEOJABIER 01/28/2023 09:45:00 Final Observation Date Value Abnormality Reference (Units ) Status Heparin, unfractionated level 01/28/2023 09:45:00 0.33 Above high normal <0.10 (IU/mL) Final Unfractionated therapeutic r anges for Anti Xa activity:
For Cardiac/Neurologic treatment: 0.3 to 0.6 IU/mL.
For treatment of DVT or Pulmonary Embolism: 0.3 to 0.7 IU/mL. Performing Location [place] [facility] [place] [address] [facility] [address]
--- OUTSIDE RECORDS SUMMARY | 2023-02-01 21:37 | External Medical Summary ---
Author Name Unknown Address Unknown Organization K01:LABORATORY [facility] [place] - [facility] [address] [facility] [address] Laboratory Report Ordering Provider Test Date Status AGUSTIN BARNEY 01/27/2023 02:31:00 Final Observation Date Value Abnormality Reference (Units ) Status WBC, Total 01/27/2023 02:31:00 9.50 4.00-10.80 (K/uL) Final RBC 01/27/2023 02:31:00 4.44 4.50-5.25 (M/uL) Final Hemoglobin 01/27/2023 02:31:00 14.9 14.0-16.8 (g/dL) Final HCT 01/27/2023 02:31:00 44.5 40.0-48.4 (%) Final MCV 01/27/2023 02:31:00 100.2 82.0-99.5 (fL) Final MCH 01/27/2023 02:31:00 33.6 27.0-34.0 (pg) Final MCHC 01/27/2023 02:31:00 33.5 32.0-36.0 (g/dL) Final RDW 01/27/2023 02:31:00 13.3 11.5-15.5 (%) Final Platelets 01/27/2023 02:31:00 180 140-400 (K/uL) Final MPV 01/27/2023 02:31:00 10.7 6.6-11.1 (fL) Final Nucleated erythrocytes/100 leukocytes [Ratio] in Blood by Automated count 01/27/2023 02:31:00 0 <=0 (/100 WBCs) Final Performing Location LABORATORY [facility] [place] - [address] [place] [address]
--- OUTSIDE RECORDS SUMMARY | 2023-02-01 21:37 | External Medical Summary ---
Author Name Unknown Address Unknown Organization K01:LABORATORY [facility] [place] - [facility] [place] [address] Laboratory Report Ordering Provider Test Date Status DAGOBERTO OROURKELISSA 01/28/2023 03:49:00 Final Observation Date Value Abnormality Reference (Units ) Status Heparin, unfractionated level 01/28/2023 03:49:00 0.39 Above high normal <0.10 (IU/mL) Final Unfractionated therapeutic r anges for Anti Xa activity:
For Cardiac/Neurologic treatment: 0.3 to 0.6 IU/mL.
For treatment of DVT or Pulmonary Embolism: 0.3 to 0.7 IU/mL. Performing Location LABORATORY [facility] [place] - [address] [facility] [place] [address]
--- OUTSIDE RECORDS SUMMARY | 2023-02-01 21:37 | External Medical Summary ---
Author Name Unknown Address Unknown Organization K01:LABORATORY [facility] [place] - [facility] [address] [place] [address] Laboratory Report Ordering Provider Test Date Status AMADEOJABIER 01/27/2023 23:47:00 Final Observation Date Value Abnormality Reference (Units ) Status Heparin, unfractionated level 01/27/2023 23:47:00 0.31 Above high normal <0.10 (IU/mL) Final Unfractionated therapeutic r anges for Anti Xa activity:
For Cardiac/Neurologic treatment: 0.3 to 0.6 IU/mL.
For treatment of DVT or Pulmonary Embolism: 0.3 to 0.7 IU/mL. Performing Location LABORATORY [facility] [place] - [address] [facility] [address]
--- OUTSIDE RECORDS SUMMARY | 2023-02-01 21:37 | External Medical Summary | Summary of Care ---
Author Name Unknown Organization [facility] Address [address] [place] [address] Phone [phone] Care Team Providers Care Medical Dir Name Role Phone Vicky Jordan Jony NESBITT Primary Care Provider Reason for Referral * Evaluate & Treat - Unlimited Visits (Within 10 days (routine)) - Authorized Specialty Diagnoses / Procedures Referred By Tabitha de la rosa Referred To Contact CARDIAC REHAB / Cardiology Diagnoses S/P PTCA (percutaneous transluminal coronary angioplasty) Sukhwinder Smith, [address] [place] [address] Referral ID Status Reason Start Date Expiration Date Visits Requested Visits Authorized [id number] Authorized Specialty Services Required 3 [phone] Question Answer Referral Priority Within 10 days (routine) Where should this appointment be scheduled? [facility] Cardiac Rehabilitation Modality No Preference, either is clinically appropriate Identify Cardiac Risk Low to Moderate Risk Comments Discharge Order Reason for Visit * Auth/Cert Specialty Diagnoses / Procedures Referred By Tabitha de la rosa Referred To Contact Diagnoses Angina at rest Angina Referral ID Status Reason Start Date Expiration Date Visits Re quested Visits Authorized [id number] Encounter Details Date Type Department Care Team (Late st Contact Info) Description 01/27/2023 1:12 AM EST - 01/30/2023 2:32 PM EST Hospital Encounter [facility] 8, [facility] 8th Floor [address] [place] [address] Jordon Tapia, DO [address] [place] [address] Pt Handout (on AVS) Discharge Disposition: Home - Self Care Allergies No known active allergiesdocumented as of [...] for 7 days. 7 Tablet 0 01/30/2023 3 Active Atorvastatin Calcium 80 MG Oral Tablet [...] evening meals. 180 Tablet 1 01/30/2023 Active Tetanus-Diphth- Acell Pertussis 5-2.5-18.5 LF-MCG/0.5 Suspension Prefilled Syringe (Boostrix)Indic ations:Need for diphtheria-teta nus-pertussis (Tdap) vaccine Inject 0.5 mL into a large muscle once for 1 dose. 0.5 mL 0 01/18/2023 3 Discontinued Aspirin 81 MG Oral Tablet Chewable Take 1 Tablet by mouth in the morning. 34 Tablet 11 01/23/2023 3 Discontinued(Refi ll) Atorvastatin Calcium 40 MG Oral Tablet (Lipitor) Take 1 Tablet by mouth in the morning. 100 Tablet 3 01/23/2023 3 Discontinued Metoprolol Succinate ER 25 MG Oral Tablet Extended Release 24 Hour (Toprol XL) Take 1 Tablet by mouth in the morning. 34 Tablet 6 01/23/2023 3 Discontinued Farxiga 10 MG Oral Tablet (Dapagliflozin Propanediol) Take 1 Tablet by mouth every morning. 90 Tablet 0 01/30/2023 3 Discontinued Apixaban 5 MG Oral Tablet (Eliquis) Take 1 Tablet by mouth in the morning and 1 Tablet before bedtime. 90 Tablet 1 01/30/2023 3 Discontinued(Refi ll) Carvedilol 6.25 MG Oral Tablet (Coreg) Take 1 Tablet by mouth 2 times a day with morning and evening meals. 90 Tablet 1 01/30/2023 3 Discontinued(Refi ll) Apixaban 5 MG Oral Tablet (Eliquis) Take 1 Tablet by mouth in the morning and 1 Tablet before bedtime. 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 01/27/2023 documented [...] Sign Reading Time Taken Comments Blood Pressure 120/77 01/30/2023 10:36 AM EST Pulse 58 01/30/2023 10:36 AM EST Temperature 36.4 C (97.6 F) 01/30/2023 1 1:07 AM EST Respiratory Rate 16 01/30/2023 11:0 7 AM EST Oxygen Saturation 96% 01/30/2023 7:07 AM EST Inhaled Oxygen Concentration - - Weight 107.9 kg (237 lb 12.8 oz) 01/29/2023 6:10 AM EST Height 177.8 cm (5' 10") 01/27/2023 1:18 AM EST Body Mass Index 34.12 01/27/2023 1:18 AM EST documented in this encounter Functional Status Functional Status Response [...] No 01/27/2023 documented as of this encounter Discharge Summaries * Aaliyah Fraser DO - 01/30/2023 1:12 PM EST [address] [address] Admission Date: 01/27/2023 Discharge Date: 01/30/2023 Next Provider: Diagnosed with NSTEMI and is s/p complex PCI for left main disease Started on GDMT, ECHO showed preserved EF 50 % Was started on Eliquis for atrial fibrillation with elevated CHADsVAsc and loaded with Plavix. STOPtriple therapy with ASA on 02/06/23. 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 (HCC) Resolved Hospital Problems Diagnosis Date Resolved *Principal Diagnosis - NSTEMI (non-ST elevated myocardial infarction) (HCC) 01/30/2023 Attending Provider: Jordon Tapia DO CONDITION ON DISCHARGE: stable DISPOSITION ON DISCHARGE: home FOLLOW-UP: Future Appointments Appt Date/Time Provider Department 02/06/2023 2:00 PM Edel Sosa PA-C Cardiology, [facility] 03/23/2023 10:00 AM Vicky Jordan DO [address] 04/25/2023 3:00 PM Edel Sosa PA-C Cardiology, [facility] Outpatient testing already scheduled: BMP in 1 week from discharge MEDICATIONS ON DISCHARGE: MEDICATION UPDATES AT DISCHARGE START taking these medications INSTRUCTIONS amLODIPine 5 MG Tablet Commonly known as: Norvasc Start taking on: January 31, 2023 Take 1 Tablet by mouth in the morning. Apixaban 5 MG Tablet Commonly known as: Eliquis Take 1 Tablet by mouth in the morning and 1 Tablet before bedtime. Carvedilol 6.25 MG Tablet Commonly known as: Coreg Take 1 Tablet by mouth 2 times a day with morning and evening meals. clopidogrel 75 MG Tablet Commonly known as: pLAVix Start taking on: January 31, 2023 Take 1 Tablet by mouth in the morning. Do not start before January 31, 2023. Lisinopril 5 MG Tablet Commonly known as: Prinivil Start taking on: January 31, 2023 Take 1 Tablet by mouth in the morning. CHANGE how you take these medications INSTRUCTIONS atorvaSTATin 80 MG Tablet Commonly known as: Lipitor What changed: medication strength how much to take when to take this Take 1 Tablet by mouth every afternoon. CONTINUE taking these medications INSTRUCTIONS aspirin 81 MG chewable tablet Take 1 Tablet by mouth in the morning for 7 days. NATURAL SUPPLEMENT Fruits and Veggies - 3 capsules each daily in morning Nitroglycerin 0.4 MG Subl Commonly known as: Nitrostat Place 1 Tablet under the tongue every 5 minutes as needed for chest pain up to 3 doses in 15 minutes pantoprazole 20 MG Tbec Commonly known as: Protonix Take 1 Tablet by mouth in the morning and 1 Tablet before bedtime. 30 minutes before the first mealof the day. Do not crush, split or chew the tablet. STOP taking these medications Boostrix 5-2.5-18.5 LF-MCG/0.5 Annette Generic drug: Vqnaiag-Nluaxw-Iuxhc Pertussis metoprolol succinate XL 25 MG Tb24 Commonly known as: Toprol XL ALLERGIES: Patient has no known allergies. INSTRUCTIONS: Activity: as tolerated ; not to lift more than 10 lbs with wrist Diet: heart healthy diet Code status (this admission): Full Code Discussion of adv directives occurred with - adult: Patient ADMISSION HISTORY & PHYSICAL EXAM (focused): Date of Admission: 01/27/2023 Presenting Problem: chest pain HPI: Patient is a 63 year old male with no known past medical history other than paroxysmal AFib which was diagnosed 2 years ago presenting as a transfer from [facility] for typical chest pain. Patient states that his chest pain started about a month ago. Was substernal, radiating to shoulder blades, associated with moderate exertion, and relieved with rest. He denied any other aggravating or relieving factors. Patient describes that within last month he has been having chest pain on minimal exertion. In the last week, it was brought on by less than ordinary activity. He denied having any chest pain at rest. He went to see a field adjuster on 01/23 for symptoms. He was started on Toprol-XL, aspirin, statin, nitroglycerin p.r.n. scheduled for cardiac catheterization as an outpatient on 01/26. He underwent cardiac catheterization at [facility] today and was found to have disease as described below. He was then transferred to [facility] for evaluation by Cardiac surgery versus complex PCI. Before transferred the patient was started on heparin infusion The time of my evaluation, patient denies any active chest pain. Denies peripheral edema, shortnessof breath. He used to smoke and has quit in the last month Lives at home with his . Wishes to be a full code and wants his to make decisions for him should he not be able to make decisions for himself. Cardiac History: Tobacco use, quit 3 weeks ago pAfib not on anticoagulation HOSPITAL COURSE (focused): Gildardo Mercer was transferred to [facility] for escalation of cardiac care on 01/27/2023 in the setting ofprogressive unstable angina and left main disease. Outside hospital ([facility]) work up included a diagnostic catheterization and which showed 90% occlusion of the LAD. Outside TTE (01/24/2023) showed LVEF of 50-54% with concentric increase of LV thickness, left atrium enlargement, grade 1 diastolic functional abnormalities, aortic valgve sclerosis, and mild mitral regurgitation. Patient was evaluated by interventional cardiology and cardiothoracic surgery for PCI vs. CABG dis cussion. Patient preferred to proceed with PCI. The patient was began on empiric cardioprotective therapy with aspirin, high dose statin and heparin gtt. Gildardo's hospital stay was complicated by similar episodes of angina, accompanied with hypertension to the 180's (systolic) and bradycardia (HR 50's). His Toprol was changed to amlodipine 5 and coreg 6.25, with better control of his symptoms. On 01/29/2023, Gildardo underwent a L heart cath with R radial access. Cath showed showed 95% stenosisof the ostial LAD. This was repaired with PCI, and post intervention stenosis was 0% with SERGIO III flow. After the stent placement, his heparin gtt was discontinued. Gildardo was loaded with plavix and switched back to eliquis. On 01/30/2023, Gildardo was deemed stable for discharge. Aspirin should be continued for 1 week, alongwith the Plavix and Eliquis. The plavix and eliquis should be continued for at least 1 year. Operations & Procedures: cardiac catheterization [place] Interpretation (focused): * Coronary disease - hemodynamically significant Ostial LAD with 95% stenosis s/p IVUS guided PCI with [id number] Xience JORJE. We landed the proximal stent edge at the confluence of LAD/Cx. Post dilated with 4.0mm NC balloon proximally. However, after this there was significant plaque shift into Cxcausing ostial Cx stenosis. We then performed V-stent technique to stent ostial Cx with [id number] Xience. We then performed KBI with 3.5mm NC in LAD and 3.5mm NC in Cx both inflated to 8 chaya simultaneously. Post intervention stenosis was 0% with SERGIO III flow. There was a good step-up, step-down and no evidence of dissection or perforation. SELECTED RESULTS: Last recorded weight: Weight: 107.9 kg (237 lb 12.8 oz) (01/29/23 0610) Complications: none CONSULTS ORDERED: CARDIAC SURGERY CONSULT IP CARDIAC REHAB CONSULT IP PHARMACY CONSULT IP REFERRING PHYSICIAN: Ref: PAYAM CRESPO[[id number]] [address] [place] [address] (office) [phone] (fax) PRIMARY CARE PROVIDER: PCP: Vicky Jordan DO [address] [facility] [address] [place] [address] (office) [phone] (fax) Note: To contact a physician responsible for this patients hospital care, please call [employer] [phone]. Associated attestation - Jordon Tapia Larry, DO - 01/30/2023 5:55 PM EST I saw and evaluated the patient today. I have reviewed the trainee note and agree. documented in this encounter Discharge Instructions * Discharge Instr - AVS* Khanh Aaliyah Wilkinson, - 01/30/2023 12:35 PM EST Discharge Date: 01/30/[address] Tapia of the Department of Cardiology at [phone] M-F during business hours for any questions or test results. For after-hours emergencies call [phone] and have your doctor paged. Scheduling services is available between the hours of 8:00 am and 9:00 pm by calling . For routine questions, your [facility] Cardiology Team prefers the use of [employer]. [employer] is an online internet tool to help you meet your health care needs quickly by providing a secure, confidential way to view your health records and communicate with your [facility] Cardiology Team. To sign up for [employer] go to [email or web address], "Click" [place] Now on the right side of the screen and complete the user registration information. The information below provides you with the instructions and the list of medications you need to betaking following discharge from the hospital. If you have any questions, please ask before leaving.Please carry this letter with you when you see your doctor in the clinic. If you have questions, you can reach us at the numbers above. Brief summary of your inpatient care: You presented to the hospital with concerns of chest pain. You underwent cardiac catheterization where the field adjuster placed two stents in your coronary artery(LAD). After intervention you did well and no longer had chest discomfort. You were started on the f ollowing medications due to having heart disease and atrial fibrillation. You were safe to go home on 01/30/23 with your . Your primary diagnosis at discharge was: NSTEMI (non ST elevated myocardial infarction) Please START taking the following medications - Eliquis 5 mg BID : Please take 1 tablet twice a day (AM/PM)- This is a blood thinner because you have A.fib - Plavix 75 mg daily: Please take 1 tablet once a day - This is an anti-platelet medication that isVERY important. You can NOT miss a dose of this medication, there will be a risk of occluding your stent if this medication is missed. - Lisinopril 5 mg daily: Take 1 tablet once a day - for your coronary artery disease - Carvedilol (Coreg) 6.25 mg BID: Take 1 tablet twice a day (AM/PM) - for your coronary artery disease - Amlodipine 5 mg : Take 1 tablet once a day - for your blood pressure Will hold on starting Farxiga- discuss with field adjuster at follow up. Please note the following CHANGES to your previous medications - Atorvastatin (Lipitor) was changed from 40 mg to 80 mg: Please take daily, this is for you coronary artery disease/cholesterol - Aspirin 81 mg: Please take for 7 days and then STOP on 02/06/23. Please STOP taking the following medications - Metoprolol Succinate 25 mg : Please stop this medication. It was replaced with Carvedilol Please continue taking all other medications as previously prescribed. Laboratory tests: You will need to get a lab draw in 1 week at any [facility] facility: BMP ordered Follow up appointment: You will need to see your field adjuster in 1-2 weeks after discharge. An appointment was requested for you and they will call to make arrangements sooner than your scheduled in April. You will also need follow up with your PCP in [address] Vicky Jordan. An appointment was requested for you. Your doctors during this hospitalization included: Dr. Tapia and Dr. Tee Inpatient test results pending: None Operations & Procedures: Heart catheterization Complications: none applicable Advance Directive Documented: Advance Directive Does the Patient have an Advance Directive? No Diet: Heart healthy diet Activity: for the first 4 days do not lift more than a milk carton with your wrist you had the catheterization through. (Right side) Driving: You may resume driving tomorrow 01/31/23 . Date you may return to work or school: February 12 Special Instructions: - Plavix or clopidogrel - This drug is most important for stent patients. It keeps the stent from blocking up by preventing blood clots from forming within the stent. When blood clots form, they block the stent and cause a heart attack. You should remain on Plavix for at least 24 weeks (until ). Please call your field adjuster before stopping Plavix for any reason.. - Aspirin - You need to take aspirin even though you are on Plavix. The preferred dose of aspirin is 81 mg per day (one baby aspirin). Use the non- coated kind. You should continue to take aspirin forever unless specifically told to stop.. - Statin Drugs (cholesterol pill) slow the growth of heart artery blockages. Your statin drug is Lipitor. - Nitroglycerin (nitro): Your should carry nitro at all times. When chest pain occurs take one nitro under tongue and call 911. You may take additional nitro every five minutes as needed for ongoing chest pain up to three pills. Lie down after using nitro. Do not drive after using nitro. Patients with chronic stable chest pain who frequently use nitro may not need to call 911. Ask your physician about this.. - Beta blockers are important for some cardiac patients and after a heart attack. Your beta blockeris Coreg - Do not use Motrin/Ibuprofen/Advil and other types of "NSAIDs" (nonsteroidal anti-inflammatory drugs) - "NSAIDs" make aspirin ineffective, can raise blood pressure, and can damage your kidneys. Try Tylenol for pain. Consult your pharmacist for questions about "NSAIDs".. Radial Artery Catheterization Instructions for Post Care Activity: Do not use the arm we used for your procedure today. Do not lift more than 10 lbs for 3 days with arm used for procedure. A responsible adult must be with the patient for 24 hours after your procedure. Rest today but you may resume your usual activity tomorrow. Do not drive, operate any appliances and/or machinery or sign legal documents for 24 hours due to the anesthesia. You may return to work in 24 hours. You may wash the wrist with soap and water and you may shower. Do not soak the wrist in water without a waterproof bandage until the small incision is healed. If you notice bleeding, increased swelling, tingling in the fingers or pain in your forearm that is not relieved by Tylenol, please seek medical attention. If you develop a fever over 101 degrees F you should contact your field adjuster. It is normal to have a small amount of discomfort for up to one week following your procedure but this should continue to improve with time, not worsen. If you have any questions or are concerned with how your arm is healing, call the doctor who did your procedure at . Keep the puncture site covered with a dry bandage for 24 hours, then remove the bandage. You shouldreplace it every 24 hours or if it gets wet. This should be done until the puncture site has completely healed. Cardiovascular RISK FACTOR control YOUR RISK FACTOR TREATMENT GOALS: Controlling the factors that cause arteries to form blockages will reduce your chance of having new blockages. Work with your health care providers to control your risk factors. If you have trouble reaching these goals then ask your health care provider to work with you further until they are controlled. Diabetes - In diabetics, hemoglobin A1C is a measure of the average blood sugar over the past 3 months. The goal is less than 7.0. Your result is: 6.1 % You are pre-diabetic Hypertension - Goal is less than 120/80. Your blood pressure is 120/77. High cholesterol LDL cholesterol (bad cholesterol) - goal is less than 70 mg/dl. HDL cholesterol (good cholesterol) - goal is greater than 40 mg/dl in men and 50 mg/dl in women. Triglycerides (other blood fats that are especially elevated in diabetics and pre-diabetics) - goal is less than 150 mg/dl. Your Lipid Panel Results are: Results for orders placed or performed in visit on 01/18/23 LIPID PANEL WITH DIRECT LDL IF TG IS HIGH Result Value Ref Range Triglycerides 87 <=174 mg/dL Cholesterol 166 <200 mg/dL HDL Cholesterol 53 >39 mg/dL Non-HDL Cholesterol 113 <=159 mg/dL LDL Cholesterol 96 <=129 mg/dL Tobacco - Tobacco is poison to your arteries. It will cause blockages. Continuing to smoke tobacco may lead to heart attacks, strokes, or leg amputation. You should avoid tobacco. Your goal is to notsmoke at all. Talk with your primary care provider about counseling and medications to help you stop smoking. Exercise - The [place] [employer] recommends walking 30 minutes a day most days of the week; if you have to lose weight you should walk 60-90 minutes a day. Remember that if you develop chestpain, you should stop what you are doing. Do not continue to exercise if you have chest pain. See your special activity instructions above. Saffell weight - Your BMI (a measure of ideal body weight) is Body mass index is 34.12 kg/m.. Your BMI should be less than 25. Your waist size also predicts risk of heart attack: a woman's waist should be less than 35 inches and a man's waist less than 40. Maintaining your ideal body weight will help your heart, reduce blood pressure, blood sugar, and cholesterol, improve or help prevent diabetes, and improve or help prevent congestive heart failure. documented in this encounter Progress Notes * Christopher Dietz MD - 01/30/2023 6:45 AM EST PROGRESS NOTE - Cardiology [facility]-[address] [address] Name: Gildardo Mercer Location: [facility] [id number] Date: 01/30/2023 Time: 6:45 AM Date of admission: 01/27/2023 Hospital length of stay: 3 days Subjective Subjective: Patient seen and examined at bedside. Patient reports no chest pain, SOB, headache, fever, chill, nausea. All systems were reviewed, all pertinent findings were documented above, otherwise negative. Objective CONSTITUTIONAL DATA / OBJECTIVE: Vital Signs (Most Recent): Blood Pressure: 118/68 mmHg Last 12H: Most Recent Systolic BP Av.3 mmHg Min: 118 mmHg Max: 131 mmHg Pulse: 57 Last 12H: Pulse Av Min: 57 Max: 57 Temperature: 36.6 C (97.8 F) Last 12H: Most Recent Temperature Av.8 C Min: 36.56 C Max: 37.11 C Respiratory Rate: 18 O2 Saturation: 96 % Vital Signs (Last 24 Hours): Pulse Av.5 Min: 53 Max: 57 No data recorded Most Recent Systolic BP Av.1 mmHg Min: 111 mmHg Max: 145 mmHg Most Recent Diastolic BP Av.8 mmHg Min: 68 mmHg Max: 92 mmHg Resp Av.4 Min: 16 Max: 18 Most Recent Temperature Av.8 C Min: 36.33 C Max: 37.11 C SpO2 Av.2 % Min: 94 % Max: 100 % Intake & Output Summary (Last 24 hours): Intake/Output Summary (Last 24 hours) at 01/30/2023 0645 Last data filed at 01/29/2023 0800 Gross per 24 hour Intake 0 ml Output -- Net 0 ml Net IO Since Admission: 240 mL [01/28/23 0704] Height & Weight: Height: 177.8 cm (5' 10") (01/27/23 0118) Weight: 107.9 kg (237 lb 12.8 oz) (01/29/23 06) Weight change: Body mass index is 34.12 kg/m. Physical Examination: Constitutional: no acute distress HEENT: normocephalic and atraumatic CV: normal rate Chest: no signs of respiratory distress Abdomen: soft and nontender Lower Extremities: nonedematous Neurologic: responds to questions appropriately Psych: normal affect Peripheral Line Left Antecubital (Active) Number of days: Laboratory Values: reviewed. -- Brief labs below include the 7 most recent results over the past week. Lab results within last 7 days (see chart for full results) Units 01/28/23 0349 pH, Venous units 7.445* pCO2, Venous mmHg 37.7* pO2, Venous mmHg 50.9* Base Excess, Venous mmol/L 2.1* Lab results within last 7 days (see chart for full results) Units 01/29/23 0536 01/28/239 01/27/23 0828 01/27/23 0601 Sodium mmol/L 136 138 -- 137 Potassium mmol/L 4.2 4.5 -- 4.0 Chloride mmol/L 102 102 -- 103 CO2 mmol/L 26 24 -- 26 BUN mg/dL 17 17 -- 16 Creatinine mg/dL 0.8 0.9 -- 0.9 Estimated Glomerular Filtration Rate mL/min >90 >90 -- >90 Glucose mg/dL 122* 136* -- 117 Calcium mg/dL 9.5 9.8 -- 9.3 Magnesium mg/dL 2.1 2.1 2.0 -- Phosphorus mg/dL 3.5 3.5 3.2 -- Anion Gap mmol/L 8 12 -- 8 Lab results within last 7 days (see chart for full results) Units 01/29/23 0536 01/28/23 0349 01/27/23 0601 01/27/23 0231 WBC K/uL 9.13 8.81 8.73 9.50 HGB g/dL 15.5 15.9 14.9 14.9 HCT % 46.3 46.3 44.3 44.5 PLT K/uL 193 185 184 180 MCV fL 100.2 97.9 99.1 100.2 Lab results within last 7 days (see chart for full results) Units 01/28/23 0349 01/27/23 0232 Troponin T, High Sensitivity ng/L 26* 30* Lab results within last 7 days (see chart for full results) Units 01/29/23 1530 01/29/23 0536 01/28/23 0945 01/28/23 0349 01/27/23 2347 01/27/23 1630 01/27/23 0828 01/27/23 0231 01/27/23 0231 01/23/23 1436 Prothrombin Time seconds -- 13.8 -- 13.0 -- -- -- -- 13.2 13.5 INR -- 1.0 -- 1.0 -- -- -- -- 1.0 1.0 aPTT seconds -- -- -- -- -- -- -- -- 32 34 Heparin, Unfractionated IU/mL >1.10* 0.21* 0.33* 0.39* 0.31* 0.16* <0.10 < > <0.10 -- < > = values in this interval not displayed. No results in the last 7 days - inpatent use only No results in the last 7 days - inpatent use only Cultures: reviewed. Lab results within last 7 days (see chart for full results) Units 01/27/23 0303 SARS-CoV-2 (COVID-19) Result Negative Recent Cultures (2 Weeks) No lab values to display. Radiographic Studies: reviewed. No imaging results in the last 72 hours EK01/23/23 REASON FOR STUDY: a fib CONCLUSIONS: Unusual P axis and short NJ, probable junctional rhythm Abnormal ECG When compared with ECG of 18-JAN-2023 12:19, No significant change was found Ventricular Rate: 65 Atrial Rate: 65 NJ Interval: 148 QRS Duration: 82 QT/QTc: 406/422 ms P-R-T [place]: 33 : 42 : 70 degrees Most recent echocardiogram: TTE (01/24) Interpretation Summary The examination is adequate to evaluate the referral indication. The qualitative LV ejection fraction is 50-54% (normal). The LV wall thickness is moderately increased (concentric). The right ventricular systolic function is normal as assessed by tricuspid annular plane systolic excursion (TAPSE) (normal >1.7 cm). The left atrium is moderately enlarged (42-48 ml/m^2). The left ventricular diastolic function is mildly abnormal (grade I). The aortic valve has three leaflets. There is aortic valve sclerosis without stenosis. Mild mitral regurgitation is present. Coronary anatomy: Dominant: Right Leftmain: distal (Severe ostial LAD stenosis extending to the distral left main) LAD: Ostial (90%), proximal (90%), and mid (mild diffuse disease stenosis rangir 20%. Moderate caliber vessel) D1: Mid (Luminal irregularities , 10-20%) D2: mid (Luminal irregularities , 10%) Circumfex: Normal OM1: Normal OM2: Ostial (50%) and proximal (20%) L PL1: Proximal (20%) RCA: Proximal (Mild catheter induced spasm, resolved with repositioning), mid and distal (40%) R PDA: normal Current Facility-Administered Medications: amLODIPine (Norvasc) tab 5 mg, 5 mg, Oral, Daily(AM), Adair Albright MD hEParin inj 5,000 Units, 5,000 Units, Subcutaneous, Q8H, Michelle Gonzalez MD, 5,000 Units at 01/30/23 0614 Ticagrelor (Brilinta) tab 90 mg, 90 mg, Oral, BID(AM/PM), Sukhwinder Smith DO, 90 mg at 01/29/23 1954 Carvedilol (Coreg) tab 6.25 mg, 6.25 mg, Oral, BID (AM/PM meals), Christopher Dietz MD, 6.25 mg at 01/29/23 1900 aspirin chew tab 81 mg, 81 mg, Oral, Daily(AM), Michelle Gonzalez MD, 81 mg at 01/29/23 0758 atorvaSTATin (Lipitor) tab 80 mg, 80 mg, Oral, Q 1700, Michelle Gonzalez MD, 80 mg at 01/29/23 1900 Assessment & Plan Assessment and Plan: Principal Problem: NSTEMI (non-ST elevated myocardial infarction) (HCC) (POA: Yes) Active Problems: 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 * POA = Present On Admission Gildardo Mercer is a 63 year old male with PMHx of paroxysmal AFib on anticoagulation now presenting with chest pain and cardiac catheterization findings concerning for Left Main disease Unstable Angina Left Main Disease Typical crescendo chest pain, no documentation of troponin levels at the OSH found to have ostial LAD 90% disease extending into distal left main. Currently chest pain free Aspirin 81 daily Atorvastatin 80 mg daily Cw Carvedilol 6.25mg Start Eliquis 5mg Start Lisinopril 5mg Start Plavix loading dose and transition to 75mg Plavix tomorrow Cw Amlodipine 5mg to control BP. Misc: Bowel Regimen: none Sleep: no sleep protocol Lundy: none Rehab: none VTE Prophylaxis: heparin gtt Code Status: Full Code Disposition: today LINES / DRAINS / TUBES: LINES ALL Duration Peripheral Line Left Antecubital -- days List of services consulted/following: CARDIAC SURGERY CONSULT IP CARDIAC REHAB CONSULT IP PHARMACY CONSULT IP Patient was discussed with Wet Pan Operator and attending physician, Jordon Tapia DO This chart was completed in part utilizing ShotClip Speech Voice Recognition Software. Grammatical errors, random word insertions, pronoun errors, and incomplete sentences are an occasional consequence of this system due to software limitations, ambient noise, and hardware issues. Any formal questions or concerns about the content, text, or information contained within the body of this dictation should be directly addressed to the provider for clarification. Associated attestation - Jordon Tapia DO - 01/30/2023 1:45 PM EST I saw and evaluated the patient today. I have reviewed the trainee note and agree. Plan for discharge today. Plan for aspirin 81mg for 1 week in addition to Plavix and Eliquis then discontinuing. Plavix and Eliquis should be continued for 1 year minimum. * Christopher Dietz MD - 01/29/2023 1:06 PM EST PROGRESS NOTE - Cardiology [facility] [place]-[address] [address] Name: Gildardo Mercer Location: CATH/Cath Date: 01/29/2023 Time: 1:08 PM Date of admission: 01/27/2023 Hospital length of stay: 2 days Subjective Subjective: Pt was hypertensive again overnight with chest pain. After receiving nitro, he returned to his baseline and slept for the rest of the night. Patient seen and examined at bedside. Patient reports no chest pain, SOB, headache, fever, chill, nausea. All systems were reviewed, all pertinent findings were documented above, otherwise negative. Objective CONSTITUTIONAL DATA / OBJECTIVE: Vital Signs (Most Recent): Blood Pressure: 128/85 mmHg Last 12H: Most Recent Systolic BP Av.8 mmHg Min: 128 mmHg Max: 144 mmHg Pulse: 54 Last 12H: Pulse Av Min: 54 Max: 54 Temperature: 36.9 C (98.5 F) Last 12H: Most Recent Temperature Av.6 C Min: 36.33 C Max: 36.94 C Respiratory Rate: 18 O2 Saturation: 94 % Vital Signs (Last 24 Hours): Pulse Av.8 Min: 54 Max: 62 No data recorded Most Recent Systolic BP Av.7 mmHg Min: 124 mmHg Max: 144 mmHg Most Recent Diastolic BP Av.6 mmHg Min: 66 mmHg Max: 90 mmHg Resp Av Min: 18 Max: 18 Most Recent Temperature Av.6 C Min: 36 C Max: 37.17 C SpO2 Av.5 % Min: 93 % Max: 97 % Intake & Output Summary (Last 24 hours): Intake/Output Summary (Last 24 hours) at 01/29/2023 1308 Last data filed at 01/29/2023 0800 Gross per 24 hour Intake 0 ml Output -- Net 0 ml Net IO Since Admission: 240 mL [01/28/23 0704] Height & Weight: Height: 177.8 cm (5' 10") (01/27/23 0118) Weight: 107.9 kg (237 lb 12.8 oz) (01/29/23609) Weight change: -0.771 kg (-1 lb 11.2 oz) Body mass index is 34.12 kg/m. Physical Examination: Constitutional: no acute distress HEENT: normocephalic and atraumatic CV: normal rate Chest: no signs of respiratory distress Abdomen: soft and nontender Lower Extremities: nonedematous Neurologic: responds to questions appropriately Psych: normal affect Peripheral Line Left Antecubital (Active) Number of days: Laboratory Values: reviewed. -- Brief labs below include the 7 most recent results over the past week. Lab results within last 7 days (see chart for full results) Units 01/28/23 034 pH, Venous units 7.445* pCO2, Venous mmHg 37.7* pO2, Venous mmHg 50.9* Base Excess, Venous mmol/L 2.1* Lab results within last 7 days (see chart for full results) Units 01/29/23 0536 01/28/2334801/27/23 0801/27/23 06 Sodium mmol/L 136 138 -- 137 Potassium mmol/L 4.2 4.5 -- 4.0 Chloride mmol/L 102 102 -- 103 CO2 mmol/L 26 24 -- 26 BUN mg/dL 17 17 -- 16 Creatinine mg/dL 0.8 0.9 -- 0.9 Estimated Glomerular Filtration Rate mL/min >90 >90 -- >90 Glucose mg/dL 122* 136* -- 117 Calcium mg/dL 9.5 9.8 -- 9.3 Magnesium mg/dL 2.1 2.1 2.0 -- Phosphorus mg/dL 3.5 3.5 3.2 -- Anion Gap mmol/L 8 12 -- 8 Lab results within last 7 days (see chart for full results) Units 01/29/23 0536 01/28/2334801/27/2360001/27/23 0231 WBC K/uL 9.13 8.81 8.73 9.50 HGB g/dL 15.5 15.9 14.9 14.9 HCT % 46.3 46.3 44.3 44.5 PLT K/uL 193 185 184 180 MCV fL 100.2 97.9 99.1 100.2 Lab results within last 7 days (see chart for full results) Units 01/28/23 0349 01/27/23 0232 Troponin T, High Sensitivity ng/L 26* 30* Lab results within last 7 days (see chart for full results) Units 01/29/23 0536 01/28/23 0945 01/28/23 0349 01/27/23 2347 01/27/23 1630 01/27/23 0828 01/27/23 0231 01/23/23 1436 Prothrombin Time seconds 13.8 -- 13.0 -- -- -- 13.2 13.5 INR 1.0 -- 1.0 -- -- -- 1.0 1.0 aPTT seconds -- -- -- -- -- -- 32 34 Heparin, Unfractionated IU/mL 0.21* 0.33* 0.39* 0.31* 0.16* <0.10 <0.10 -- No results in the last 7 days - inpatent use only No results in the last 7 days - inpatent use only Cultures: reviewed. Lab results within last 7 days (see chart for full results) Units 01/27/23 0303 SARS-CoV-2 (COVID-19) Result Negative Recent Cultures (2 Weeks) No lab values to display. Radiographic Studies: reviewed. No imaging results in the last 72 hours EK01/23/23 REASON FOR STUDY: a fib CONCLUSIONS: Unusual P axis and short NJ, probable junctional rhythm Abnormal ECG When compared with ECG of 18-JAN-2023 12:19, No significant change was found Ventricular Rate: 65 Atrial Rate: 65 NJ Interval: 148 QRS Duration: 82 QT/QTc: 406/422 ms P-R-T [place]: 33 : 42 : 70 degrees Most recent echocardiogram: TTE (01/24) Interpretation Summary The examination is adequate to evaluate the referral indication. The qualitative LV ejection fraction is 50-54% (normal). The LV wall thickness is moderately increased (concentric). The right ventricular systolic function is normal as assessed by tricuspid annular plane systolic excursion (TAPSE) (normal >1.7 cm). The left atrium is moderately enlarged (42-48 ml/m^2). The left ventricular diastolic function is mildly abnormal (grade I). The aortic valve has three leaflets. There is aortic valve sclerosis without stenosis. Mild mitral regurgitation is present. Coronary anatomy: Dominant: Right Leftmain: distal (Severe ostial LAD stenosis extending to the distral left main) LAD: Ostial (90%), proximal (90%), and mid (mild diffuse disease stenosis rangir 20%. Moderate caliber vessel) D1: Mid (Luminal irregularities , 10-20%) D2: mid (Luminal irregularities , 10%) Circumfex: Normal OM1: Normal OM2: Ostial (50%) and proximal (20%) L PL1: Proximal (20%) RCA: Proximal (Mild catheter induced spasm, resolved with repositioning), mid and distal (40%) R PDA: normal Current Facility-Administered Medications: [START ON 01/30/2023] amLODIPine (Norvasc) tab 5 mg, 5 mg, Oral, Daily(AM), Adair Albright MD fentaNYL (PF) inj 50 mcg, 50 mcg, IV Push, PRN, Chris Khan DO, 50 mcg at 01/29/23 1254 hEParin inj 5,000 Units, 5,000 Units, IV Push, PRN, Chris Khan DO midazolam (Versed) 2 MG/2ML inj 1 mg, 1 mg, IV Push, PRN, Chris Khan DO, 1 mg at 01/29/23 1254 Carvedilol (Coreg) tab 6.25 mg, 6.25 mg, Oral, BID (AM/PM meals), Christopher Dietz MD, 6.25 mg at 01/29/23 0758 aspirin chew tab 81 mg, 81 mg, Oral, Daily(AM), Michelle Gonzalez MD, 81 mg at 01/29/23 0758 atorvaSTATin (Lipitor) tab 80 mg, 80 mg, Oral, Q 1700, Michelle Gonzalez MD, 80 mg at 01/28/23 1736 hEParin 1000 UNIT/ML inj 1,300 Units, 15 Units/kg (Adjusted), IV Push, PRN, Michelle Gonzalez MD, 1,300 Units at 01/29/23 0851 hEParin 1000 UNIT/ML inj 2,600 Units, 30 Units/kg (Adjusted), IV Push, PRN, Michelle Gonzalez MD, 2,600 Units at 01/27/23 1754 hEParin 25,000 units in 250 mL (Xa-Cardiac) infusion, 0-30 Units/kg/hr (Adjusted), Intravenous, Titrate, Michelle Gonzalez MD, Last Rate: 17.54 mL/hr at 01/29/23 0801, 20 Units/kg/hr at 01/29/23 0801 Assessment & Plan Assessment and Plan: Principal Problem: NSTEMI (non-ST elevated myocardial infarction) (HCC) (POA: Yes) Active Problems: 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 * POA = Present On Admission Gildardo Mercer is a 63 year old male with PMHx of paroxysmal AFib on anticoagulation now presenting with chest pain and cardiac catheterization findings concerning for Left Main disease Unstable Angina Left Main Disease Typical crescendo chest pain, no documentation of troponin levels at the OSH found to have ostial LAD 90% disease extending into distal left main. Currently chest pain free CVTS consult for CABG eval Aspirin 81 daily Atorvastatin 80 mg daily Check HbA1C Continue heparin infusion Echocardiogram done at OSH Start Carvedilol 6.25mg and dc Toprol XL 12.5 daily Cardiac cath 01/29/23 Add Amlodipine 5mg to control BP. Misc: Bowel Regimen: none Sleep: no sleep protocol Lundy: none Rehab: none VTE Prophylaxis: heparin gtt Code Status: Full Code Disposition: 2 or more days LINES / DRAINS / TUBES: LINES ALL Duration Peripheral Line Left Antecubital -- days List of services consulted/following: CARDIAC SURGERY CONSULT IP Patient was discussed with Wet Pan Operator and attending physician, Jordon Tapia DO This chart was completed in part utilizing ShotClip Speech Voice Recognition Software. Grammatical errors, random word insertions, pronoun errors, and incomplete sentences are an occasional consequence of this system due to software limitations, ambient noise, and hardware issues. Any formal questions or concerns about the content, text, or information contained within the body of this dictation should be directly addressed to the provider for clarification. Associated attestation - Jordon Tapia DO - 01/29/2023 4:00 PM EST I saw and evaluated the patient today. I have reviewed the trainee note and agree. Bifurcation stenting of the LM-LAD-Lcx completed today. Please see dedicated dictation for further details. The case was discussed with interventional cardiology. Plan for discharge tomorrow pending overnight recovery. * Christopher Dietz MD - 01/28/2023 7:04 AM EST PROGRESS NOTE - Cardiology [address] [address] Name: Gildardo Mercer Location: [facility] [place] H869/[id number] Date: 01/28/2023 Time: 7:04 AM Date of admission: 01/27/2023 Hospital length of stay: 1 days Subjective Overnight Events: No acute events overnight. Subjective: Patient seen and examined at bedside. Patient reports no chest pain, SOB, headache, fever, chill, nausea. All systems were reviewed, all pertinent findings were documented above, otherwise negative. Objective CONSTITUTIONAL DATA / OBJECTIVE: Vital Signs (Most Recent): Blood Pressure: 133/79 mmHg Last 12H: Most Recent Systolic BP Av.6 mmHg Min: 104 mmHg Max: 206 mmHg Pulse: 61 Last 12H: Pulse Av.2 Min: 52 Max: 70 Temperature: 36.4 C (97.6 F) Last 12H: Most Recent Temperature Av.7 C Min: 36.44 C Max: 36.89 C Respiratory Rate: 16 O2 Saturation: 96 % Vital Signs (Last 24 Hours): Pulse Av.9 Min: 52 Max: 70 No data recorded Most Recent Systolic BP Av.3 mmHg Min: 104 mmHg Max: 206 mmHg Most Recent Diastolic BP Av.2 mmHg Min: 55 mmHg Max: 121 mmHg Resp Av.8 Min: 16 Max: 18 Most Recent Temperature Av.7 C Min: 36.44 C Max: 36.89 C SpO2 Av.1 % Min: 91 % Max: 99 % Intake & Output Summary (Last 24 hours): Intake/Output Summary (Last 24 hours) at 01/28/2023703 Last data filed at 01/27/2023 1800 Gross per 24 hour Intake 240 ml Output -- Net 240 ml Net IO Since Admission: 240 mL [01/28/23703] Height & Weight: Height: 177.8 cm (5' 10") (01/27/23 011) Weight: 108.6 kg (239 lb 8 oz) (01/28/23630) Weight change: -1.134 kg (-2 lb 8 oz) Body mass index is 34.36 kg/m. Physical Examination: Constitutional: no acute distress HEENT: normocephalic and atraumatic CV: normal rate Chest: no signs of respiratory distress Abdomen: soft and nontender Lower Extremities: nonedematous Neurologic: responds to questions appropriately Psych: normal affect Peripheral Line Left Antecubital (Active) Number of days: Laboratory Values: reviewed. -- Brief labs below include the 7 most recent results over the past week. Lab results within last 7 days (see chart for full results) Units 01/28/23348 pH, Venous units 7.445* pCO2, Venous mmHg 37.7* pO2, Venous mmHg 50.9* Base Excess, Venous mmol/L 2.1* Lab results within last 7 days (see chart for full results) Units 01/28/2334801/27/2382701/27/23600 Sodium mmol/L 138 -- 137 Potassium mmol/L 4.5 -- 4.0 Chloride mmol/L 102 -- 103 CO2 mmol/L 24 -- 26 BUN mg/dL 17 -- 16 Creatinine mg/dL 0.9 -- 0.9 Estimated Glomerular Filtration Rate mL/min >90 -- >90 Glucose mg/dL 136* -- 117 Calcium mg/dL 9.8 -- 9.3 Magnesium mg/dL 2.1 2.0 -- Phosphorus mg/dL 3.5 3.2 -- Anion Gap mmol/L 12 -- 8 Lab results within last 7 days (see chart for full results) Units 01/28/2334801/27/23600 01/27/23 0231 WBC K/uL 8.81 8.73 9.50 HGB g/dL 15.9 14.9 14.9 HCT % 46.3 44.3 44.5 PLT K/uL 185 184 180 MCV fL 97.9 99.1 100.2 Lab results within last 7 days (see chart for full results) Units 01/28/23 0349 01/27/23 0232 Troponin T, High Sensitivity ng/L 26* 30* Lab results within last 7 days (see chart for full results) Units 01/28/23 0349 01/27/23 2347 01/27/23 1630 01/27/23 0828 01/27/23 0231 01/23/23 1436 Prothrombin Time seconds 13.0 -- -- -- 13.2 13.5 INR 1.0 -- -- -- 1.0 1.0 aPTT seconds -- -- -- -- 32 34 Heparin, Unfractionated IU/mL 0.39* 0.31* 0.16* <0.10 <0.10 -- No results in the last 7 days - inpatent use only No results in the last 7 days - inpatent use only Cultures: reviewed. Lab results within last 7 days (see chart for full results) Units 01/27/23 0303 SARS-CoV-2 (COVID-19) Result Negative Recent Cultures (2 Weeks) No lab values to display. Radiographic Studies: reviewed. No imaging results in the last 72 hours EK01/23/23 REASON FOR STUDY: a fib CONCLUSIONS: Unusual P axis and short NJ, probable junctional rhythm Abnormal ECG When compared with ECG of 18-JAN-2023 12:19, No significant change was found Ventricular Rate: 65 Atrial Rate: 65 NJ Interval: 148 QRS Duration: 82 QT/QTc: 406/422 ms P-R-T [place]: 33 : 42 : 70 degrees Most recent echocardiogram: TTE (01/24) Interpretation Summary The examination is adequate to evaluate the referral indication. The qualitative LV ejection fraction is 50-54% (normal). The LV wall thickness is moderately increased (concentric). The right ventricular systolic function is normal as assessed by tricuspid annular plane systolic excursion (TAPSE) (normal >1.7 cm). The left atrium is moderately enlarged (42-48 ml/m^2). The left ventricular diastolic function is mildly abnormal (grade I). The aortic valve has three leaflets. There is aortic valve sclerosis without stenosis. Mild mitral regurgitation is present. Coronary anatomy: Dominant: Right Leftmain: distal (Severe ostial LAD stenosis extending to the distral left main) LAD: Ostial (90%), proximal (90%), and mid (mild diffuse disease stenosis rangir 20%. Moderate caliber vessel) D1: Mid (Luminal irregularities , 10-20%) D2: mid (Luminal irregularities , 10%) Circumfex: Normal OM1: Normal OM2: Ostial (50%) and proximal (20%) L PL1: Proximal (20%) RCA: Proximal (Mild catheter induced spasm, resolved with repositioning), mid and distal (40%) R PDA: normal Current Facility-Administered Medications: aspirin chew tab 81 mg, 81 mg, Oral, Daily(AM), Michelle Gonzalez MD, 81 mg at 01/27/23 0831 atorvaSTATin (Lipitor) tab 80 mg, 80 mg, Oral, Q 1700, Michelle Gonzalez MD, 80 mg at 01/27/23 1629 hEParin 1000 UNIT/ML inj 1,300 Units, 15 Units/kg (Adjusted), IV Push, PRN, Michelle Gonzalez MD hEParin 1000 UNIT/ML inj 2,600 Units, 30 Units/kg (Adjusted), IV Push, PRN, Michelle Gonzalez MD, 2,600 Units at 01/27/23 1754 hEParin 25,000 units in 250 mL (Xa-Cardiac) infusion, 0-30 Units/kg/hr (Adjusted), Intravenous, Titrate, Michelle Gonzalez MD, Last Rate: 15.79 mL/hr at 01/28/23 0704, 18 Units/kg/hr at 01/28/23 0704 metoprolol succinate XL (toPROL XL) tab 12.5 mg, 12.5 mg, Oral, Daily(AM), Michelle Gonzalez MD, 12.5mg at 01/27/23 0831 Assessment & Plan Assessment and Plan: Active Problems: Unstable angina (HCC) (POA: Unknown) 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 * POA = Present On Admission Gildardo Mercer is a 63 year old male with PMHx of paroxysmal AFib on anticoagulation now presenting with chest pain and cardiac catheterization findings concerning for Left Main disease Unstable Angina Left Main Disease Typical crescendo chest pain, no documentation of troponin levels at the OSH found to have ostial LAD 90% disease extending into distal left main. Currently chest pain free CVTS consult for CABG eval Aspirin 81 daily Atorvastatin 80 mg daily Check HbA1C Continue heparin infusion Echocardiogram done at OSH Start Carvedilol 6.25mg and dc Toprol XL 12.5 daily NPO after 2400 Misc: Bowel Regimen: none Sleep: no sleep protocol Lundy: none Rehab: none VTE Prophylaxis: heparin gtt Code Status: Full Code Disposition: 2 or more days LINES / DRAINS / TUBES: LINES ALL Duration Peripheral Line Left Antecubital -- days List of services consulted/following: CARDIAC SURGERY CONSULT IP Patient was discussed with Wet Pan Operator and attending physician, Jordon Tapia DO This chart was completed in part utilizing ShotClip Speech Voice Recognition Software. Grammatical errors, random word insertions, pronoun errors, and incomplete sentences are an occasional consequence of this system due to software limitations, ambient noise, and hardware issues. Any formal questions or concerns about the content, text, or information contained within the body of this dictation should be directly addressed to the provider for clarification. Associated attestation - Jordon Tapia DO - 01/28/2023 6:34 PM EST I saw and evaluated the patient today. I have reviewed the trainee note and agree. Risk and benefits discussed with the patient. The patient has opted for PCI over CABG (CASTILLO to LAD). NPO after midnight. Continue current medication regimen at this time. * Jeni Powers, ZEB - 01/28/2023 3:37 AM EST Nursing Critical Care Response Note [facility] [place] [address] Name: Gildardo FORTUNEN: [id number] Date: 01/28/2023 Time: 7:49 AM Event Location: [facility] [place], Unit Area: [facility] In the role of the Critical Response Nurse I was involved in the care of this patient. Method of notification to the critical care response nurse: Rapid response team notification Reason for notification or follow up: Chest pain Observations/Interventions/Assessment: KICK BOXER initiated for chest pain and hypertension. Pt endorses mid-sternal chest pain, radiates to the middle of his back, rated at a 4/10 upon my arrival. Unable to describe the quality of the chest pain. BP 191/121, pt diaphoretic. HR irregular. Outcome/Plan Service at bedside, EKG obtained, IV labetalol given. Pt states pain has improved. Rates a 2/10, BP144/84. Bedside nurse to continue to monitor. CRN can be contacted via [employer] Text: [facility] [place] Critical Response Nurse. documented in this encounter H&P Notes * Michelle Gonzalez MD - 01/27/2023 1:35 AM EST Images from the original note were not included. GENERAL HISTORY AND PHYSICAL EXAMINATION - CARDIOLOGY [address] [address] Name: Gildardo Mercer Location: [facility] [place] H869/[id number] Date: 01/27/2023 Time: 2:18 AM Date of Admission: 01/27/2023 Presenting Problem: chest pain HPI: Patient is a 63 year old male with no known past medical history other than paroxysmal AFib which was diagnosed 2 years ago presenting as a transfer from [facility] for typical chest pain. Patient states that his chest pain started about a month ago. Was substernal, radiating to shoulder blades, associated with moderate exertion, and relieved with rest. He denied any other aggravating or relieving factors. Patient describes that within last month he has been having chest pain on minimal exertion. In the last week, it was brought on by less than ordinary activity. He denied having any chest pain at rest. He went to see a field adjuster on 01/23 for symptoms. He was started on Toprol-XL, aspirin, statin, nitroglycerin p.r.n. scheduled for cardiac catheterization as an outpatient on 01/26. He underwent cardiac catheterization at [facility] today and was found to have disease as described below. He was then transferred to [facility] for evaluation by Cardiac surgery versus complex PCI. Before transferred the patient was started on heparin infusion The time of my evaluation, patient denies any active chest pain. Denies peripheral edema, shortnessof breath. He used to smoke and has quit in the last month Lives at home with his . Wishes to be a full code and wants his to make decisions for him should he not be able to make decisions for himself. Cardiac History: Tobacco use, quit 3 weeks ago pAfib not on anticoagulation Past Medical History: Past Medical History: Diagnosis Date No known health problems Past Surgical History: Past Surgical History: Procedure Laterality Date INFORMATION mole removed as child, benign as far he is aware Family Medical History: obtained and not relevant in this case Family History Problem Relation Age of Onset Diabetes Mother Hypertension Mother Cancer Father Prostate Hypertension Father Diabetes Father Hypertension Sister Cancer Sister Breast Heart Disorder Brother CABGx6 Stroke Brother Hypertension Brother Social History: Social History Tobacco Use Smoking status: Former Types: Cigarettes Quit date: 01/01/2023 Years since quittin.0 Passive exposure: Past Smokeless tobacco: Never Substance Use Topics Alcohol use: Yes Comment: 6-7 light beers nightly Drug use: Not Currently Allergies: Patient has no known allergies. Review of Systems: 10 point review of systems was conducted with pertinent positives and negatives as stated above, otherwise negative. Objective: Most Recent Vital Signs: BP: 144 mmHg/83 mmHg (01/27/23212) Pulse: 62 (01/27/23112) Temp: 36.78 C (01/27/23212) Resp: 17 (01/27/23212) SpO2: 97 % (01/27/23112) Physical Examination: Constitutional: no acute distress HEENT: normocephalic and atraumatic CV: normal rate Chest: no signs of respiratory distress Abdomen: soft and nontender Lower Extremities: nonedematous Neurologic: responds to questions appropriately Psych: normal affect Laboratory Values: reviewed Radiographic & Other Studies: reviewed TTE (01/24) Interpretation Summary The examination is adequate to evaluate the referral indication. The qualitative LV ejection fraction is 50-54% (normal). The LV wall thickness is moderately increased (concentric). The right ventricular systolic function is normal as assessed by tricuspid annular plane systolic excursion (TAPSE) (normal >1.7 cm). The left atrium is moderately enlarged (42-48 ml/m^2). The left ventricular diastolic function is mildly abnormal (grade I). The aortic valve has three leaflets. There is aortic valve sclerosis without stenosis. Mild mitral regurgitation is present. Impression and Plan: Active Problems: Unstable angina (HCC) (POA: Unknown) Left main coronary artery disease (POA: Unknown) Resolved Problems: * No resolved hospital problems. * POA = Present On Admission Gildardo Mercer is a 63 year old male with PMHx of paroxysmal AFib on anticoagulation now presenting with chest pain and cardiac catheterization findings concerning for Left Main disease Unstable Angina Left Main Disease Typical crescendo chest pain, no documentation of troponin levels at the OSH found to have ostial LAD 90% disease extending into distal left main. Currently chest pain free CVTS consult for CABG eval Aspirin 81 daily Atorvastatin 80 mg daily Check HbA1C Continue heparin infusion Echocardiogram done at OSH Will start Toprol XL 12.5 daily Misc: Bowel Regimen: none Sleep: no sleep protocol Lundy: none Rehab: none VTE Prophylaxis: heparin gtt Code Status: Full Code Disposition: 2 or more days Patient will be seen and examined by attending physician, DO Michelle Frances MD Resident Physician Associated attestation - Jordon Tapia DO - 01/27/2023 10:27 PM EST I saw and evaluated the patient today. I have reviewed the trainee note and agree. Cath access site without evidence of significant ecchymosis. Films were reviewed with short left main coronary artery and hemodynamically signficant distal LM extending into the LAD. The case was discussed with CT surgery and interventional cardiology, Dr. Khan. The patient has a preference of PCI over CABG. Will revisit the risk and benefits of both approaches with the patient yet again tomorrow. The patient at this time is favoring high risk PCI. documented in this encounter Procedure Notes * Chris Khan DO - 01/29/2023 2:[address] [facility] [address] [facility] [id number] CARDIAC RESIN PAINTER BRIEF PROCEDURE NOTE Name: Gildardo Mercer Date: 01/29/2023 Time: 2:42 PM Location: CARDIAC LABS [facility] Date of Procedure: 01/29/2023 Pre-op Diagnosis: CAD Post-op Diagnosis: Coronary artery disease Procedure: PCI to Ostial LAD/ Cx Gas Leak Tester: Dr. Khan Car Checker(s): Dr. Smith Anesthesia: Monitored local anesthesia with sedation Additional Findings: Coronary disease - hemodynamically significant Ostial LAD with 95% stenosis s/p IVUS guided PCI with [id number] Xience JORJE. We landed the proximal stent edge at the confluence of LAD/Cx. Post dilated with 4.0mm NC balloon proximally. However, after this there was significant plaque shift into Cx causing ostial Cx stenosis. We then performed V-stent technique to stent ostial Cx with [id number] Xience. We then performed KBI with 3.5mm NC in LAD and 3.5mm NC in Cx both inflated to 8 chaya simultaneously. Post intervention stenosis was 0% with SERGIO III flow. There was a good step-up, step-down and no evidence of dissection or perforation. Right radial access Complications: none Condition of patient: Good Recommendations: DAPT for atleast 1 year but recommend longer (possibly lifelong) duration given ostial LAD and Cx stents. I have discussed the patient's management with the medical trainee and agree with the note. Please refer to the documented findings and plan of care. This patient's visit today consisted of a procedure. I was present for the entire procedure. Chris Khan DO documented in this encounter Consult Notes * Stew Smith Jr., RPh - 01/30/2023 2:32 PM ESTAssociated Order(s): PHARMACY CONSULT IP Patient was discharged before I could do teaching for Plavix and Eliquis. Will send education sheets through [employer] * Angelique Barraza CRNP - 01/27/2023 4:01 AM ESTAssociated Order(s): CARDIAC SURGERY CONSULT IP Images from the original note were not included. CONSULT - CARDIAC SURGERY [address] [id number] Name: Gildardo Mercer Location: [facility] H869/[id number] Date: 01/27/2023 Time: 4:02 AM REFERRING PHYSICIAN: Payam Crespo DO PCP: Vicky Jordan DO LOAN SUPERVISOR: Dr Crespo REQUESTING SERVICE: cardiology REASON FOR CONSULT: LM disease HPI: Gildardo Mercer is a 63 year old male with a pmhx significant for pAfb diagnosed 2 years ago without known reoccurrence, former smoker with recent cessation, who presented to [facility] for chest painthat was present for about a month which was associated with exertion. He was started on medical therapy and cath arranged as an outpatient which was completed 01/26 and showed LM disease. Transferred to [facility] for PCI vs CABG. Echo 01/24 - normal EF moderate LVH, moderate left atrium dilatation, mild MR Reports he is generally fairly healthy and has not had any major operations. 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 He lives at home with his and his 92 year old mother. He has not gotten chest pain since admission. He says it usually comes on when he is up walking around, although sometimes he has gotten it while turning from side to side at in bed He is currently wearing a zio patch to work up hx of afib Patient has history of chest pain/angina: Yes, see HPI Patient has history of SOB/MCCANN: No Patient has syncope/presyncope: No Presentation associated with endocarditis/bacteremia: No [place] Heart Failure Classification: n/a ALLERGIES: Patient has no known allergies. PAST MEDICAL HISTORY: Past Medical History: Diagnosis Date No known health problems PAST SURGICAL HISTORY: Past Surgical History: Procedure Laterality Date INFORMATION mole removed as child, benign as far he is aware Hx of vein harvest or stripping?: no SOCIAL HISTORY: Drug Use: never Social History Tobacco Use Smoking status: Former Types: Cigarettes Quit date: 01/01/2023 Years since quittin.0 Passive exposure: Past Smokeless tobacco: Never Substance Use Topics Alcohol use: Yes Comment: 6-7 light beers nightly Drug use: Not Currently FAMILY HISTORY: Family History Problem Relation Age of Onset Diabetes Mother Hypertension Mother Cancer Father Prostate Hypertension Father Diabetes Father Hypertension Sister Cancer Sister Breast Heart Disorder Brother CABGx6 Stroke Brother Hypertension Brother Family History of Premature CAD (Less than 55 year old male relative or less than 65 year old female relatives with history of angina, acute AR, sudden cardiac without obvious cause, CABG surgery, or PCI.): no - brother had cabg but at older age REVIEW OF SYSTEMS: Constitutional: denies weight loss, denies fever Eyes: denies double vision , denies blurred vision Ear, nose and throat: denies decreased hearing Dental: no issues Cardiac: see HPI Vascular: no claudication Respiratory: denies shortness of breath, denies dyspnea on exertion (MCCANN) Gastrointestinal: denies dysphagia, denies nausea Genitourinary: denies dysuria Musculoskeletal: denies joint pain Psychiatric: denies depression, denies anxiety Skin: denies rash Neurologic: denies syncope Endocrine: glucoses well controlled Hematologic / Lymphatic: denies blood clotting problems Immunologic: denies trouble fighting infections CARDIOTHORACIC COMPLETE PHYSICAL EXAM: Most Recent Vital Signs: BP: 144 mmHg/83 mmHg (01/27/23212) Pulse: 62 (01/27/23112) Temp: 36.78 C (01/27/23212) Resp: 17 (01/27/23212) SpO2: 97 % (01/27/23112) PHYSICAL EXAM: General: no acute distress Chest: normal shape and normal respiratory effort Lungs: clear to auscultation and percussion Cardiac Exam: regular rate & rhythm no murmurs gallops or rubs - normal S1, normal S2 Pulses: The following pulses are normal: radials and dorsalis pedis pulses Abdomen: abdomen soft, non-tender, no abnormal masses, and no hepatosplenomegaly Musculoskeletal: no gait disturbance, no joint inflammation, no deforming arthritis Extremities: no edema and no cyanosis Skin: skin color, texture, turgor are normal, no rashes or significant lesions Neuro: grossly normal exam Veins GSV appears adequate bilaterally LABS/STUDIES: [facility] cath 01/2601/24/2023 TTE (01/24) Interpretation Summary The examination is adequate to evaluate the referral indication. The qualitative LV ejection fraction is 50-54% (normal). The LV wall thickness is moderately increased (concentric). The right ventricular systolic function is normal as assessed by tricuspid annular plane systolic excursion (TAPSE) (normal >1.7 cm). The left atrium is moderately enlarged (42-48 ml/m^2). The left ventricular diastolic function is mildly abnormal (grade I). The aortic valve has three leaflets. There is aortic valve sclerosis without stenosis. Mild mitral regurgitation is present. 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 I saw and evaluated the patient on date of service referenced in note and have performed the following medically appropriate historyand/or exam: I had a detailed discussion with Gildardo. 63 yo old with chest pain, exertional but worsening. Cath reviewed- severe ostial LAD disease, moderate branch vessel disease elsewhere. EF preserved. IMPRESSION We discussed he has severe LAD disease, symptomatic, preserved LV function- We discussed the natural history, risk factors, and treatment options for CAD, including medical therapy and coronary stenting. Surgery has a lower reintervention rate, higher upfront risk. PCI has lower upfront risk, higher revascularization rate. I reviewed with Dr. Khan and he felt PCI is feasible. After presenting both options/risks/benefits, Gildardo decided he would like PCI. Discussed with primary team. documented in this encounter Nursing Notes * Dakotah Salinas RN - 01/27/2023 2:00 AM EST Pt arrived to floor by EMS. Pt assessment and vital signs completed as charted. Pt oriented to roomand call dhaliwal use. Dual Licensed Skin Assessment completed by Marcia Gastelum RN and Jony Moise RN. The patient is/has a N/A Skin Breakdown (includes non blanchable erythema): No documented in this encounter Miscellaneous Notes * Pt Handout (on AVS) - Sarah Khoury, Stew Calderon RPh - 01/30/2023 2:32 PM EST Images from the original note were not included. [id number] Clopidogrel Oral Tablet Brands: Plavix Uses This medicine is used for the following purposes: prevent blood clots prevent stroke prevent heart attack Instructions This medicine may be taken with or without food. This medicine will work best if you take it at about the same time every day. Keep the medicine at room temperature. Avoid heat and direct light. It is important that you keep taking each dose of this medicine on time even if you are feeling well. If you forget to take a dose on time, take it as soon as you remember. If it is almost time for thenext dose, do not take the missed dose. Return to your normal schedule. Do not take 2 doses at one time. Drug interactions can change how medicines work or increase risk for side effects. Tell your healthcare providers about all medicines taken. Include prescription and halh-jhw-mxhajpt medicines, vitamins, and herbal medicines. Speak with your doctor or pharmacist before starting or stopping any medicine. Cautions Tell your doctor and pharmacist if you ever had an allergic reaction to a medicine. Do not use the medication any more than instructed. Speak with your doctor before taking any medicine with aspirin. Contact your doctor if you notice a change in the amount or darkening of your urine. Tell the doctor or pharmacist if you are , planning to be , or . Call your doctor right away if you notice any unusual bleeding or bruising. Do not share this medicine with anyone who has not been prescribed this medicine. Some patients have serious side effects from this medicine. Ask your pharmacist to show you the information from the Food and Drug Administration (FDA) and discuss it with you. Side Effects The following is a list of some common side effects from this medicine. Please speak with your doctor about what you should do if you experience these or other side effects. itching Call your doctor or get medical help right away if you notice any of these more serious side effects: loss of balance bleeding or bruising chest pain coughing up blood or vomit that looks like coffee grounds fever swelling in the neck or throat severe or persistent headache fast or irregular heart beats pale or blue skin, lips or fingernails bloody or dark, tarry stools symptoms of stroke (such as one-sided weakness, slurred speech, confusion) unusual or unexplained tiredness or weakness blood in urine yellowing of eyes or skin A few people may have an allergic reaction to this medicine. Symptoms can include difficulty breathing, skin rash, itching, swelling, or severe dizziness. If you notice any of these symptoms, seek medical help quickly. Extra Please speak with your doctor, nurse, or pharmacist if you have any questions about this medicine. [email or web address] IMPORTANT NOTE: This document tells you briefly how to take your medicine, but it does not tell youall there is to know about it. Your doctor or pharmacist may give you other documents about your medicine. Please talk to them if you have any questions. Always follow their advice. There is a more complete description of this medicine available in Martiniquais. Scan this code on your smartphone or tablet or use the web address below. You can also ask your pharmacist for a printout. If you have any questions, please ask your pharmacist. The display and use of this drug information is subject to Terms of Use. Copyright(c) 2022 [employer]. 9977-5386 [employer]. All rights reserved. This information is not intended as a substitute for professional medical care. Always follow your healthcare professional's instructions. * Pt Handout (on AVS) - Stew Smith Jr., RPh - 01/30/2023 2:32 PM EST Images from the original note were not included. Clopidogrel - Video To view the video go to this web address: [email or web address] Or, scan this QR code with your smart phone 2022 [employer]. All Rights Reserved. * Pt Handout (on AVS) - Stew Smith Jr., RP - 01/30/2023 2:32 PM EST Eliquis - Video Let's take a minute to talk about your medication. This is Eliquis. It treats and helps prevent blood clots. To view the video go to this web address: [email or web address] Or, scan this QR code with your smart phone 2022 [employer]. All Rights Reserved. * Pt Handout (on AVS) - Stew Smith Jr., RP - 01/30/2023 2:32 PM EST Images from the original note were not included. [id number] Apixaban Oral Tablet Brands: Eliquis Uses This medicine is used for the following purposes: blood disorder prevent blood clots treatment of blood clots blood clot Instructions This medicine may be taken with or without food. This medicine will work best if you take it at about the same time every day. Store at room temperature away from heat, light, and moisture. Do not keep in the bathroom. It is important that you keep taking each dose of this medicine on time even if you are feeling well. If you forget to take a dose on time, take it as soon as you remember. If it is almost time for thenext dose, do not take the missed dose. Return to your normal schedule. Do not take 2 doses at one time. Drug interactions can change how medicines work or increase risk for side effects. Tell your healthcare providers about all medicines taken. Include prescription and wkql-dud-mykdsxw medicines, vitamins, and herbal medicines. Speak with your doctor or pharmacist before starting or stopping any medicine. Talk to your doctor before taking other medicines, including aspirins and ibuprofen containing products. Speak to your doctor about which medicines are safe to use while you are on this medicine. It is very important that you follow your doctor's instructions for all blood tests. Cautions This medicine may cause serious bleeding problems in patients taking blood thinner medications. Follow your doctor's instructions carefully to monitor your blood lab tests if you are on blood thinners. Tell your doctor and pharmacist if you ever had an allergic reaction to a medicine. This medicine may cause serious bleeding from the stomach or bowels. Stop this medicine and call your doctor immediately if you see any signs of bleeding. Bleeding can cause pain in the stomach, vomiting up liquid that looks like coffee grounds, and red or dark tarry stools. There is an increased risk of bleeding while on this medicine, please tell your doctor or nurse if you notice any excessive bleeding or bruising. Do not use the medication any more than instructed. Please check with your doctor before drinking alcohol while on this medicine. Do not breastfeed while on this medicine. This medicine can hurt a new baby in the womb. If you become while on this medicine, tell your doctor immediately. Your doctor may switch you to a different medicine. Do not take Milka's wort while on this medicine. Do not share this medicine with anyone who has not been prescribed this medicine. Some patients have serious side effects from this medicine. Ask your pharmacist to show you the information from the Food and Drug Administration (FDA) and discuss it with you. Always refill this medicine before it runs out. Side Effects The following is a list of some common side effects from this medicine. Please speak with your doctor about what you should do if you experience these or other side effects. nosebleeds Call your doctor or get medical help right away if you notice any of these more serious side effects: bleeding or bruising coughing up blood or vomit that looks like coffee grounds fainting numbness or tingling in hands and feet severe or persistent headache sudden leg pain, swelling, warmth or redness loss of movement anywhere on the body shortness of breath bloody or dark, tarry stools symptoms of stroke (such as one-sided weakness, slurred speech, confusion) difficulty swallowing unusual or unexplained tiredness or weakness blood in urine blurring or changes of vision A few people may have an allergic reaction to this medicine. Symptoms can include difficulty breathing, skin rash, itching, swelling, or severe dizziness. If you notice any of these symptoms, seek medical help quickly. Extra Please speak with your doctor, nurse, or pharmacist if you have any questions about this medicine. [email or web address] IMPORTANT NOTE: This document tells you briefly how to take your medicine, but it does not tell youall there is to know about it. Your doctor or pharmacist may give you other documents about your medicine. Please talk to them if you have any questions. Always follow their advice. There is a more complete description of this medicine available in [place]iquais. Scan this code on your smartphone or tablet or use the web address below. You can also ask your pharmacist for a printout. If you have any questions, please ask your pharmacist. The display and use of this drug information is subject to Terms of Use. Copyright(c) 2022 [employer]. 6990-4655 [employer]. All rights reserved. This information is not intended as a substitute for professional medical care. Always follow your healthcare professional's instructions. * Hospital Course - Kvng Snyder, Medical Student - 01/30/2023 2:17 PM EST {Hospital Course documentation can easily be pulled into the Discharge Summary by documenting here and using the smartlink in the Discharge Summary template:00212} Gildardo Mercer was transferred to [facility] for escalation of cardiac care on 01/27/2023 in the setting ofprogressive unstable angina and left main disease. Outside hospital ([facility]) work up included a diagnostic catheterization and which showed 90% occlusion of the LAD. Outside TTE (01/24/2023) showed LVEF of 50-54% with concentric increase of LV thickness, left atrium enlargement, grade 1 diastolic functional abnormalities, aortic valgve sclerosis, and mild mitral regurgitation. Patient was evaluated by interventional cardiology and cardiothoracic surgery for PCI vs. CABG dis cussion. Patient preferred to proceed with PCI. The patient was began on empiric cardioprotective therapy with aspirin, high dose statin and heparin gtt. Gildardo's hospital stay was complicated by similar episodes of angina, accompanied with hypertension to the 180's (systolic) and bradycardia (HR 50's). His Toprol was changed to amlodipine 5 and coreg 6.25, with better control of his symptoms. On 01/29/2023, iGldardo underwent a L heart cath with R radial access. Cath showed showed 95% stenosisof the ostial LAD. This was repaired with PCI, and post intervention stenosis was 0% with SERGIO III flow. After the stent placement, his heparin gtt was discontinued. Gildardo was loaded with plavix and switched back to eliquis. On 01/30/2023, Gildardo was deemed stable for discharge. Aspirin should be continued for 1 week, alongwith the Plavix and Eliquis. The plavix and eliquis should be continued for at least 1 year. Thank you for allowing us to take care of Gildardo. Please contact us with any questions you have. * Ancillary Progress Note - Chloé Rich RN - 01/30/2023 2:11 PM EST ADULT CARE MANAGEMENT - DISCHARGE NOTE [facility] [address] Name: Gildardo Mercer Location: [facility] H869/A Date: 01/30/2023 Time: 2:12 PM The following coordination of care and discharge plan has been coordinated with the care team, patient, family and/or caregiver according to the patients needs and preferences. Discharge Discharge Insurance considerations verified and completed: Yes (01/30/231410) Second Notice Important Message from Medicare delivered: Yes (01/30/231410) Date Delivered: 01/29/23 (01/30/23 141) Was Caregiver/Family/Facility contacted regarding discharge: Yes (01/30/23 3622) Discharge Transportation: Family/Friends drive (01/30/231410) Final D/C Plan - Complete at time of D/C Final Discharge Plan (Complete only at time of Discharge): Home - Self Care (01/30/231410) Destination - Admitted Since 01/27/2023 No services have been selected for the patient. Destination - Episodes Includes Destination providers with selected services from the active episodes listed below Level 2 Complex Case Management Episode start date: 01/29/2023 There are no active outsourced providers for this episode. Narrative: Pt discharging to home. No needs identified by CM. Family/friends anticipated to providedischarge transportation. Please contact CM with any concerns. * Ancillary Progress Note - Chloé Rich RN - 01/30/2023 11:04 AM EST CARE MANAGEMENT - ADULT TRANSITION NOTE [facility] [address] Name: Gildardo Mercer Location: [facility] H869/A Date: 01/30/2023 Time: 11:04 AM Prescription Coverage: Yes (01/28/231118) RX Plan and Comment: [facility] Mail-in (01/28/231118) Risk Stratification Risk Stratification Medical and Behavioral Health Concerns Identified: Chronic disease;Polypharmacy (01/28/231118) Psycho Social/Care Gaps concerns identified upon admission:: Adjustment to illness/injury () Accessed Neighborly to connect patients to social care resources: No (01/28/231118) OBRA or OPTIONS needed for placement: No (01/28/231118) Readmission Risk Score: 7.88 (01/30/23 0800) AM-PAC Score With Stairs : 24 (01/30/23 0738) Caregiver Information Patient Contacts Name Relation Home Work Mobile Millie Gilliam Spouse [phone] Transition of Care Checklist Transition of Care Checklist (aka Readmission Risk Score) Readmission Risk Score: 7.88 (01/30/23 0800) Discharge Disposition: Home (01/28/231124) Outpatient Dater Assembler: No, not applicable (01/28/231124) Narrative: Chart reviewed, pt not medically ready for discharge. S/p complex PCI yesterday. Pt to be discussed further in IDT rounds. No CM needs at this time. CM will continue to follow for arising discharge needs. Anticipated Transportation at Discharge: family Patient/Family Expectations: home Transition Planning Transition Planning Transition Plan/Considerations: Needs uncertain at this time - Continue monitoring for needs (01/28/231124) [facility] Quality Rating provided to patient: No (01/28/231124) Repisodic Choice provided to patient: No (01/28/231124) Insurance Considerations: Precertification needed for Post-Acute Care;Prior authorization for medication;Therapy documentation needed for precert request (01/28/231124) Referral to Community Agency : N/A (01/28/231124) Additional Considerations: none Care Management will continue to monitor and assist with discharge planning needs * Care Plan - Maricarmen Tran RN - 01/30/2023 1:05 AM EST Clinical Goal(s): Pt will remain free from chest pain (01/30/23 0012) Possible barriers to meeting goal(s)/advancing plan of care: Patient condition Stability of the patient: Moderately stable - low risk of patient condition declining or worsening Summary regarding today's goal(s): Met: Pt remained free from chest pain Recommendations: Continue medications and monitor patient * Progress Notes - Non-Billable - Anuja Velazco MD - 01/29/2023 11:42 PM EST POST-CATHETERIZATION CHECK NOTE Name: Gildardo Mercer Date of : 1960 Patient is 63 year old male who underwent Left heart cath, Coronary angiography. Patient seen and examined at bedside. Results were discussed with the patient and questions were answered to satisfaction. Patient denies any numbness, tingling or weakness in their right hand. Access: right radial artery Vital Signs: BP 131/83 | Pulse 57 | Temp 36.7 C (98.1 F) (Oral) | Resp 18 | Ht 1.778 m (5' 10") | Wt 107.9 kg (237 lb 12.8 oz) | SpO2 100% | BMI 34.12 kg/m | BSA 2.31 m Physical Examination: Constitutional: no acute distress CV: normal rate Chest: clear to auscultation bilaterally Extremities: dressing on right radial artery is clean. There is no hematoma and no ooze from the cath site noted. Distal pulses were palpated. Skin discoloration distal to catheterization site is absent. Active range of motion is intact. Cath Findings: Coronary disease - hemodynamically significant Ostial LAD with 95% stenosis s/p IVUS guided PCI with [id number] Xience JORJE. We landed the proximal stent edge at the confluence of LAD/Cx. Post dilated with 4.0mm NC balloon proximally. However, after this there was significant plaque shift into Cx causing ostial Cx stenosis. We then performed V-stent technique to stent ostial Cx with [id number] Xience. We then performed KBI with 3.5mm NC in LAD and 3.5mm NC in Cx both inflated to 8 chaya simultaneously. Post intervention stenosis was 0% with SERGIO III flow. There was a good step-up, step-down and no evidence of dissection or perforation. A/P: Gildardo Mercer is a 63 year old male with PMHx of paroxysmal AFib on anticoagulation now presenting with chest pain and cardiac catheterization findings concerning for Left Main disease . Rest of plan per progress note * Communication - Sukhwinder Smith DO - 01/29/2023 12:50 PM EST INFORMED CONSENT FOR CARDIAC CATH AND INTERVENTIONAL PROCEDURES: Dr. Khan discussed with patient the alternatives to cardiac cath including medical therapy and if appropriate exercise testing. Dr. Khan discussed the risks of cath including 05/999 , AR, CVA and 2/100 risk of allergic reaction, bleeding, infection, arrhythmia requiring shock, damage to artery requiring surgery or amputation, radiation skin garcía. Dr. Khan discussed technique of catheterization. The patient indicated understanding and a preference for proceeding with catheterization considering these factors. Dr. Khan discussed with the patient coronary intervention and alternatives including bypass surgery and medical therapy. Dr. Khan discussed the risks of intervention including 5-10% risk of AR, 5% risk of bleeding possibly requiring transfusion, 1% risk of , 1% risk of emergency CABG, and 20- 30% risk of restenosis, and the chance that even a successful procedure will notrelieve symptoms if they are not due to cardiac ischemia. The patient would like to have ad hoc intervention done at the time of the catheterization if it seems appropriate. His risk for the procedure is slightly higher than above stated percentages (MACE of about 3-5%) given ostial LAD and possible need to stent into left main coronary artery. He understands and wishes to proceed. * Communication - Michelle Gonzalez MD - 01/29/2023 5:47 AM EST Patient was evaluated for chest pain 5-6 in intensity, similar in character as previous night. He was noted to be hypertensive to 190s with HR in high 50s. Was given nitro paste which relieved the patient completely with improvement in blood pressure. EKG with no acute changes. Michelle Gonzalez MD Resident, Internal Medicine * Care Plan - Dakotah Salinas RN - 01/29/2023 1:55 AM EST Clinical Goal(s): Pt will report new or worsening symptoms (01/28/23 0700) Possible barriers to meeting goal(s)/advancing plan of care: disease process Stability of the patient: Moderately stable - low risk of patient condition declining or worsening Summary regarding today's goal(s): Met: pt reported symptoms to nurse Recommendations: continue to encourage open communication * Ancillary Progress Note - Kiya Pitts RN - 01/28/2023 11:25 AM EST CARE MANAGEMENT - ADULT INITIAL SCREENING [address] [address] Name: Gildardo Mercer Location: [facility] H869/A Date: 01/28/2023 Time: 11:25 AM Patient Class: Inpatient (01/28/231118) Discussed patient with the interdisciplinary care team. This Science Writer performed a chart review and met with pt at bedside to complete admission screen and assessed needs for transition planning. The acute care assistant role and services were explained and emotional support was provided. 30 Day Readmission Screening 30 Day Readmission Readmission within 30 days?: No (01/28/231118) Chief Complaint: No chief complaint on file. Prior Living Arrangements What was your living situation prior to admission/observation?: With Spouse (01/28/231118) Do you have any children, pets, or other dependents that you are currently caring for?: Yes (comment) (2 dogs and 98 year old [id number]) (01/28/231118) Living Quarters: House (01/28/231118) How many stories is the dwelling?: Bi-level (01/28/231118) Number of steps to enter living quarters:: 0 (01/28/231118) Location of bathroom(s): All floors or Single story dwelling (01/28/231118) Do you have serious difficulty walking or climbing stairs? (5 years old or older): No (01/27/23117) History of falling: No (01/28/231118) Prior Level of Functioning Describe the patient's ability prior to admission/observation to perform ADLs: Performs independently (01/28/231118) Describe the patient's mobility status prior to admission: Patient ambulates independently (01/28/231118) Patient uses assistive device: No (01/28/231118) Caregiver Information Patient Contacts Name Relation Home Work Mobile Millie Gilliam Spouse [phone] Risk Stratification/Psychosocial/Care Gaps Risk Stratification Medical and Behavioral Health Concerns Identified: Chronic disease;Polypharmacy (01/28/231118) Psycho Social/Care Gaps concerns identified upon admission:: Adjustment to illness/injury () Accessed Neighborly to connect patients to social care resources: No (01/28/231118) OBRA or OPTIONS needed for placement: No (01/28/231118) Readmission Risk Score: 7 (01/28/231118) Comments: Initial assessment completed. Pt resides in a Bi-level home with no steps to enter if he enters from the garage. His 98 year old gmrata-dw-gme resides with him and his and their 2 dogs. 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 Pt uses [facility] in [facility] and [facility] Mail order for halfway meds. PT plans to discharge home with transport by his but needs are undetermined at this time. CM will continue to follow to determine discharge needs. Prior to Admission Services Services Prior to Admission EPOXY COATINGS INSTALLER Services (Services received within the last 30 days with exception, Psych within last two years): N/A (01/28/231118) [place] Dept. of Aging (PDA) Waiver Program: N/A (01/28/231118) EPOXY COATINGS INSTALLER Transportation (Services received within the last 30 days): Patient drives self;Family/Friends Personal Vehicle (01/28/231118) Outpatient Science Writer: no, not applicable Patient/Family Expectations: Discharge when medically appropriate. Anticipated Disposition Plan & Post Acute Needs Anticipated Plan Anticipated D/C disposition per abbreviated screening: (undetermined) (01/28/231118) Anticipated Post-Acute Care needs identified: (undetermined) (01/28/231118) For further screening information, please refer to the Care Management flow document. * Care Plan - Dakotah Salinas RN - 01/27/2023 7:18 PM EST Clinical Goal(s): Pt will report new or worsening symptoms (01/27/23 0700) Possible barriers to meeting goal(s)/advancing plan of care: disease process Stability of the patient: Moderately stable - low risk of patient condition declining or worsening Summary regarding today's goal(s): Met: pt reported all symptoms to nurse Recommendations: continue to encourage open communication documented in this encounter Plan of Treatment Upcoming Encounters Date Type Department Care Team (Late st Contact Info) Description 02/06/2023 2:00 PM EST Office Visit Cardiology, [facility] [address] [place] [address] Edel Sosa PA-C [address] [address] 03/23/2023 10:00 AM EST Office Visit Family Practice [address] [place] [address] [address] [place] [address] Vicky Jordan DO [address] [place] [address] 04/25/2023 3:00 PM EST Office Visit Cardiology, [facility] [address] [facility] [address] Edel Sosa PA-C [address] [address] Scheduled Orders Name Type Priority Associated Diagnoses Orde r Schedule CARDIAC REHAB W/ECG MONITORING Procedures Routine S/P PTCA (percutaneous transluminal coronary angioplasty) Ordered: 01/29/2023 Scheduled Referrals Name Type Priority Associated Diagnoses Orde r Schedule CARDIAC REHAB REFERRAL OP Referral Within 10 days (routine) S/P PTCA (percutaneous transluminal coronary angioplasty) Ordered: 01/29/2023 Health Maintenance Due Date Last Done Comments [...] this encounter Medical Devices Implanted Type Area Can Reforming Machine Operator Device Identifier Shelf Expiration Date Model / Serial / Lot Stent Xience Skypoint 3.50x15 - [id number] Implanted:Qty: 1 on 01/29/2023 by Chris Khan DO at [facility] : VASCULAR DEVICES 07/05/2025 [id number] / / [id number] documented as of this encounter Procedures Procedure Name Priority Date/Time Associated Diagnosis Comments BASIC METABOLIC PANEL Routine 01/30/2023 6:52 AM EST PHOSPHORUS Routine 01/30/2023 6:52 AM EST CBC Routine 01/30/2023 6:52 AM EST MAGNESIUM Routine 01/30/2023 6:52 AM EST HEPARIN, UNFRACTIONATED STAT 01/30/20 3:30 PM EST ACT, POINT OF CARE GIA 01/29/2023 2: 37 PM EST ACT, POINT OF CARE GIA 01/29/2023 1: 51 PM EST BASIC METABOLIC PANEL Routine 01/29/2023 5:36 AM EST HEPARIN, UNFRACTIONATED STAT 01/30/20 5:36 AM EST PT INR Routine 01/29/2023 5:36 AM EST PHOSPHORUS Routine 01/29/2023 5:36 AM EST CBC Routine 01/29/2023 5:36 AM EST URIC ACID Add-on 01/29/2023 5:36 AM EST MAGNESIUM Routine 01/29/2023 5:36 AM EST CARDIAC CATHETERIZATION REPORT Routine 01/29/2023 HEPARIN, UNFRACTIONATED STAT 01/29/20 9:45 AM EST HEPATITIS C RNA ADD ON Routine 3:49 AM EST TROPONIN T, HIGH SENSITIVITY STAT 01/28/2023 3:49 AM EST BLOOD GAS, VENOUS STAT 01/28/2023 3:4 9 AM EST HEPATITIS C ANTIBODY SCREEN WITH PROGRESSION TO HEPATITIS C RNA QUANTITATIVE Routine 01/28/2023 3:49 AM EST HEMOGLOBIN A1C Routine 01/28/2023 3:49 AM EST BASIC METABOLIC PANEL Routine 01/28/2023 3:49 AM EST HEPARIN, UNFRACTIONATED STAT 01/29/20 3:49 AM EST HEPATITIS C ANTIBODY Routine 01/28/2023 3:49 AM EST PT INR Routine 01/28/2023 3:49 AM EST PHOSPHORUS Routine 01/28/2023 3:49 AM EST CBC Routine 01/28/2023 3:49 AM EST MAGNESIUM Routine 01/28/2023 3:49 AM EST HEPARIN, UNFRACTIONATED STAT 01/28/20 11:47 PM EST HEPARIN, UNFRACTIONATED STAT 01/28/20 4:30 PM EST HEPARIN, UNFRACTIONATED STAT 01/28/20 8:28 AM EST PHOSPHORUS Add-on 01/27/2023 8:28 AM EST MAGNESIUM Add-on 01/27/2023 8:28 AM EST BASIC METABOLIC PANEL Routine 01/27/2023 6:01 AM EST CBC Routine 01/27/2023 6:01 AM EST INFLUENZA A/B RSV SARS-COV2,PCR STAT 01/27/2023 3:03 AM EST TROPONIN T, HIGH SENSITIVITY Routine 01/27/2023 2:32 AM EST HEPARIN, UNFRACTIONATED STAT 01/28/20 2:31 AM EST PT INR STAT 01/27/2023 2:31 AM EST APTT STAT 01/27/2023 2:31 AM EST CBC STAT 01/27/2023 2:31 AM EST documented in this encounter Results * PHOSPHORUS (01/30/2023 6:52 AM EST) [facility] Phosphorus 3.6 2.5 - 4.8 mg/dL 01/30/2023 7:56 AM EST LABORATORY [facility] Blood Venous blood specimen / Unknown Venipuncture / Unknown 01/30/2023 6:52 AM EST 01/30/2023 7:28 AM EST Adair Albright MD LAB BLOOD O RDERABLES Performing Organization Address [facility] Co de Phone Number [facility] [address] [place] [address] * MAGNESIUM (01/30/2023 6:52 AM EST) Magnesium 2.3 1.5 - 2.6 mg/dL 01/30/2023 7:56 AM EST [facility] Blood Venous blood specimen / Unknown Venipuncture / Unknown 01/30/2023 6:52 AM EST 01/30/2023 7:28 AM EST Adair Albright MD LAB BLOOD O RDERABLES Performing Organization Address [facility] Co de Phone Number [facility] [address] [place] [address] * CBC (01/30/2023 6:52 AM EST) WBC 9.45 4.00 - 10.80 K/uL 01/30/2023 7:36 AM EST [facility] RBC 4.75 4.50 - 5.25 M/uL 01/30/2023 7:36 AM EST [facility] HGB 15.7 14.0 - 16.8 g/dL 01/30/2023 7:36 AM EST [facility] HCT 47.6 40.0 - 48.4 % 01/30/2023 7:36 AM EST [facility] MCV 100.2 82.0 - 99.5 fL 01/30/2023 7:36 AM EST [facility] MCH 33.1 27.0 - 34.0 pg 01/30/2023 7:36 AM EST [facility] MCHC 33.0 32.0 - 36.0 g/dL 01/30/2023 7:36 AM EST [facility] RDW 13.3 11.5 - 15.5 % 01/30/2023 7:36 AM EST [facility] PLT 207 140 - 400 K/uL 01/30/2023 7:36 AM EST [facility] MPV 10.7 6.6 - 11.1 fL 01/30/2023 7:36 AM EST [facility] nRBCs 0 <=0 /100 WBCs 01/30/2023 7:36 AM EST [facility] Blood Venous blood specimen / Unknown Venipuncture / Unknown 01/30/2023 6:52 AM EST 01/30/2023 7:28 AM EST Michelle Gonzalez MD LAB BLOOD ORDERABLES [facility] [address] [place] [address] * BASIC METABOLIC PANEL (01/30/2023 6:52 AM EST) BUN 18 6 - 20 mg/dL 01/30/2023 7:56 AM EST [facility] Creatinine 0.9 0.6 - 1.2 mg/dL 01/30/2023 7:56 AM EST [facility] Estimated Glomerular Filtration Rate >90 >=60 mL/min 01/30/2023 7:56 AM EST [facility] Comment:eGFR is calculated b ased on the CKD-EPI 2020 equation Sodium 137 135 - 146 mmol/L 01/30/2023 7:56 AM EST [facility] Potassium 4.3 3.5 - 5.1 mmol/L 01/30/2023 7:56 AM EST [facility] Chloride 101 98 - 107 mmol/L 01/30/2023 7:56 AM EST [facility] CO2 24 22 - 32 mmol/L 01/30/2023 7:56 AM EST [facility] Anion Gap 12 7 - 15 mmol/L 01/30/2023 7:56 AM EST [facility] Glucose 105 70 - 120 mg/dL 01/30/2023 7:56 AM EST [facility] Calcium 9.7 8.4 - 10.2 mg/dL 01/30/2023 7:56 AM EST [facility] Blood Venous blood specimen / Unknown Venipuncture / Unknown 01/30/2023 6:52 AM EST 01/30/2023 7:28 AM EST Michelle Gonzalez MD LAB BLOOD ORDERABLES Performing Organization Address City/[facility]/ZIP Co de Phone Number LABORATORY [facility] [address] [place] [address] * (ABNORMAL) HEPARIN, UNFRACTIONATED (01/29/2023 3:30 PM EST) [facility] Heparin, Unfractionated >1.10(HH) <0.10 IU/mL 01/29/2023 4:19 PM EST LABORATORY [facility] Comment: Unfractionated therapeutic ranges for Anti Xa activity: For Cardiac/Neurologic treatment: 0.3 to 0.6 IU/mL. For treatment of DVT or Pulmonary Embolism: 0.3 to 0.7 IU/mL. Blood Venous blood specimen / Unknown Venipuncture / Unknown 01/29/2023 3:30 PM EST 01/29/2023 3:41 PM EST Jordon Tapia DO LAB BLOOD ORDERABLES Performing Organization Address [facility] Co de Phone Number LABORATORY [facility] [address] [place] [address] * ACT, POINT OF CARE (01/29/2023 2:37 PM EST) [facility] 275 50 - 1,000 secs 01/29/2023 2:51 PM EST [employer]CON[facility] Blood 01/29/2023 2:37 PM EST 01/29/2023 2:51 PM EST Narrative [facility] [employer] [facility] - 01/29/2023 2:51 PM EST NORMAL (NON-HEPARINIZED) 74-137 SECONDS HEPARINIZED 200+ SECONDS CRITICAL GREATER THAN 1000 SECONDS Jordon Tapia DO LAB POINT OF CARE TEST DOCKED DEVICE UNSOLICITED RESULTS Performing Organization Address City/[facility] Co de Phone Number [facility] [address] [place] [address] * ACT, POINT OF CARE (01/29/2023 1:51 PM EST) [facility] 353 50 - 1,000 secs 01/29/2023 2:51 PM EST [facility] Blood 01/29/2023 1:51 PM EST 01/29/2023 2:51 PM EST Narrative [facility] LABORATORIES - 01/29/2023 2:51 PM EST NORMAL (NON-HEPARINIZED) 74-137 SECONDS HEPARINIZED 200+ SECONDS CRITICAL GREATER THAN 1000 SECONDS Jordon Tapia DO LAB POINT OF CARE TEST DOCKED DEVICE UNSOLICITED RESULTS [facility] [address] [place] [address] * (ABNORMAL) URIC ACID (01/29/2023 5:36 AM EST) Pathologist [facility] Uric Acid 9.0(H) 3.4 - 7.0 mg/dL 01/29/2023 11:23 AM EST LABORATORY [facility] Blood Venous blood specimen / Unknown Venipuncture / Unknown 01/29/2023 5:36 AM EST 01/29/2023 5:44 AM EST Adair Albright MD LAB BLOOD O RDERABLES Performing Organization Address City/[facility]/ZIP Co de Phone Number LABORATORY [facility] [address] [place] [address] * PHOSPHORUS (01/29/2023 5:36 AM EST) Pathologist [facility] Phosphorus 3.5 2.5 - 4.8 mg/dL 01/29/2023 6:14 AM EST LABORATORY [facility] Blood Venous blood specimen / Unknown Venipuncture / Unknown 01/29/2023 5:36 AM EST 01/29/2023 5:44 AM EST Adair Albright MD LAB BLOOD O RDERABLES Performing Organization Address City/[facility]/ZIP Co de Phone Number LABORATORY [facility] [address] [place] [address] * MAGNESIUM (01/29/2023 5:36 AM EST) Pathologist [facility] Magnesium 2.1 1.5 - 2.6 mg/dL 01/29/2023 6:14 AM EST [facility] Blood Venous blood specimen / Unknown Venipuncture / Unknown 01/29/2023 5:36 AM EST 01/29/2023 5:44 AM EST Adair Albright MD LAB BLOOD O RDERABLES Performing Organization Address City/[facility]/ZIP Co de Phone Number LABORATORY [facility] [address] [place] [address] * PT INR (01/29/2023 5:36 AM EST) Prothrombin Time 13.8 11.6 - 15.2 seconds 01/29/2023 7:31 AM EST [facility] INR 1.0 0.8 - 1.2 01/29/2023 7:31 AM EST [facility] Blood Venous blood specimen / Unknown Venipuncture / Unknown 01/29/2023 5:36 AM EST 01/29/2023 5:44 AM EST Narrative [facility] - 01/29/2023 7:31 AM EST Warfarin Therapy INR: 2.0-3.0 conventional anticoagulation INR: 2.5-3.5 high intensity anticoagulation Michelle Gonzalez MD LAB BLOOD ORDERABLES Performing Organization Address City/[facility] Co de Phone Number LABORATORY [address] [address] [place] [address] * CBC (01/29/2023 5:36 AM EST) Pathologist [facility] WBC 9.13 4.00 - 10.80 K/uL 01/29/2023 5:56 AM EST LAB[facility]ATORY [facility] RBC 4.62 4.50 - 5.25 M/uL 01/29/2023 5:56 AM EST [facility]ORY [facility] HGB 15.5 14.0 - 16.8 g/dL 01/29/2023 5:56 AM EST LAB[facility] HCT 46.3 40.0 - 48.4 % 01/29/2023 5:56 AM EST LAB[facility]ORY [facility] MCV 100.2 82.0 - 99.5 fL 01/29/2023 5:56 AM EST [facility] MCH 33.5 27.0 - 34.0 pg 01/29/2023 5:56 AM EST LAB[facility] MCHC 33.5 32.0 - 36.0 g/dL 01/29/2023 5:56 AM EST LAB[facility] RDW 13.4 11.5 - 15.5 % 01/29/2023 5:56 AM EST [facility] PLT 193 140 - 400 K/uL 01/29/2023 5:56 AM EST [facility] MPV 10.6 6.6 - 11.1 fL 01/29/2023 5:56 AM EST LAB[facility]ORY [facility] nRBCs 0 <=0 /100 WBCs 01/29/2023 5:56 AM EST [facility] Blood Venous blood specimen / Unknown Venipuncture / Unknown 01/29/2023 5:36 AM EST 01/29/2023 5:44 AM EST Michelle Gonzalez MD LAB BLOOD ORDERABLES Performing Organization Address City/State/[facility] Co de Phone Number LABORATORY [address] [place] [address] * (ABNORMAL) BASIC METABOLIC PANEL (01/29/2023 5:36 AM EST) BUN 17 6 - 20 mg/dL 01/29/2023 6:14 AM EST LAB[facility]ATORY [facility] Creatinine 0.8 0.6 - 1.2 mg/dL 01/29/2023 6:14 AM EST LAB[facility]ATORY [facility] Estimated Glomerular Filtration Rate >90 >=60 mL/min 01/29/2023 6:14 AM EST LAB[facility]ATORY [facility] Comment:eGFR is calculated b ased on the CKD-EPI 2020 equation Sodium 136 135 - 146 mmol/L 01/29/2023 6:14 AM EST LAB[facility]ATORY [facility] Potassium 4.2 3.5 - 5.1 mmol/L 01/29/2023 6:14 AM EST LAB[facility] Chloride 102 98 - 107 mmol/L 01/29/2023 6:14 AM EST [facility] CO2 26 22 - 32 mmol/L 01/29/2023 6:14 AM EST [facility] Anion Gap 8 7 - 15 mmol/L 01/29/2023 6:14 AM EST LABORATORY [facility] Glucose 122(H) 70 - 120 mg/dL 01/29/2023 6:14 AM EST LABORATORY [facility] Calcium 9.5 8.4 - 10.2 mg/dL 01/29/2023 6:14 AM EST LABORATORY [facility] Blood Venous blood specimen / Unknown Venipuncture / Unknown 01/29/2023 5:36 AM EST 01/29/2023 5:44 AM EST Michelle Gonzalez MD LAB BLOOD ORDERABLES Performing Organization Address [facility] de Phone Number LABORATORY [facility] [address] [place] [address] * (ABNORMAL) HEPARIN, UNFRACTIONATED (01/29/2023 5:36 AM EST) Heparin, Unfractionated 0.21(H) <0.10 IU/mL 01/29/2023 7:31 AM EST LABORATORY [facility] Comment: Unfractionated therapeutic ranges for Anti Xa activity: For Cardiac/Neurologic treatment: 0.3 to 0.6 IU/mL. For treatment of DVT or Pulmonary Embolism: 0.3 to 0.7 IU/mL. Blood Venous blood specimen / Unknown Venipuncture / Unknown 01/29/2023 5:36 AM EST 01/29/2023 5:44 AM EST Jordon Tapia DO LAB BLOOD ORDERABLES Performing Organization Address [facility] Co de Phone Number LABORATORY [address] [address] * CARDIAC CATHETERIZATION REPORT (01/29/2023) DATE OF PROCEDURE 01/29/2023 [facility] Chris Castaneda DO [facility] INTERVENTIONAL Chris Castaneda DO [facility] CONCLUSIONS * Coronary disease - hemodynamically significant Ostial LAD with 95% stenosis s/p IVUS guided PCI with [id number] Xience JORJE. We landed the proximal stent edge at the confluence of LAD/Cx. Post dilated with 4.0mm NC balloon proximally. However, after this there was significant plaque shift into Cx causing ostial Cx stenosis. We then performed V-stent technique to stent ostial Cx with [id number] Xience. We then performed KBI with 3.5mm NC in LAD and 3.5mm NC in Cx both inflated to 8 chaya simultaneously. Post intervention stenosis was 0% with SERGIO III flow. There was a good step-up, step-down and no evidence of dissection or perforation. [facility] PROCEDURES JORJE Stenting IVUS or OCT initial IVUS or OCT each additional IVUS or OCT each additional JORJE Stenting - 22 Modifier Procedure 1:38-1:52 hours:minutes Sedation [facility] TOTAL CONTRAST VOLUME 110 ml [facility] TOTAL RADIATION 0.34 Gy [facility] COMPLICATIONS No complication None [facility] 01/29/2023 01/30/2023 6:5 6 PM EST Jordon Tapia DO CARD CATH Performing Organization Address City/[facility]/ZIP Co de Phone Number [facility] * (ABNORMAL) HEPARIN, UNFRACTIONATED (01/28/2023 9:45 AM EST) Heparin, Unfractionated 0.33(H) <0.10 IU/mL 01/28/2023 10:19 AM EST LABORATORY [facility] Comment: Unfractionated therapeutic ranges for Anti Xa activity: For Cardiac/Neurologic treatment: 0.3 to 0.6 IU/mL. For treatment of DVT or Pulmonary Embolism: 0.3 to 0.7 IU/mL. Blood Venous blood specimen / Unknown Venipuncture / Unknown 01/28/2023 9:45 AM EST 01/28/2023 10:00 AM EST Jordon Tapia DO LAB BLOOD ORDERABLES LABORATORY [facility] [address] [place] [address] * (ABNORMAL) BLOOD GAS, VENOUS (01/28/2023 3:49 AM EST) Temperature 37.0 C 01/28/2023 3:57 AM EST LAB[facility]ATORY [facility] pH, Venous 7.445(H) 7.320 - 7.430 units 01/28/2023 3:57 AM EST LAB[facility]ATORY [facility] pCO2, Venous 37.7(L) 40.0 - 60.0 mmHg 01/28/2023 3:57 AM EST LAB[facility] pO2, Venous 50.9(H) 25.0 - 50.0 mmHg 01/28/2023 3:57 AM EST LAB[facility]ATORY [facility] Base Excess, Venous 2.1(H) -2.0 - 2.0 mmol/L 01/28/2023 3:57 AM EST LAB[facility] Hemoglobin, Whole Blood 16.1 14.0 - 16.8 g/dL 01/28/2023 3:57 AM EST [facility] Oxyhemoglobin, Venous 84.9 40.0 - 85.0 % total Hgb 01/28/2023 3:57 AM EST LAB[facility] Carboxyhemoglobi n, Whole Blood 1.5 <=1.5 % total Hgb 01/28/2023 3:57 AM EST LAB[facility]ATORY [facility] Comment:Smokers: 0-9.0 % Methemoglobin, Whole Blood 0.4 <=1.5 % total Hgb 01/28/2023 3:57 AM EST LAB[facility] Reduced Hemoglobin, Venous 13.2 % total Hgb 01/28/2023 3:57 AM EST LAB[facility] O2 Content, Venous 19.1(H) 7.0 - 18.0 %vol 01/28/2023 3:57 AM EST LAB[facility] Bicarbonate, Whole Blood 25.5 23.0 - 31.0 mmol/L 01/28/2023 3:57 AM EST LAB[facility] Blood Venous blood specimen / Unknown Venipuncture / Unknown 01/28/2023 3:49 AM EST 01/28/2023 3:53 AM EST Regino Russell MD LAB BLOOD ORDERABLES LABORATORY [facility] [address] [place] [address] * (ABNORMAL) TROPONIN T, HIGH SENSITIVITY (01/28/2023 3:49 AM EST) Troponin T, High Sensitivity 26(H) <=22 ng/L 01/28/2023 4:27 AM EST LABORATORY [facility] Blood Venous blood specimen / Unknown Venipuncture / Unknown 01/28/2023 3:49 AM EST 01/28/2023 3:54 AM EST Regino Russell MD LAB BLOOD ORDERABLES Performing Organization Address City/[facility]/ZIP Co de Phone Number LABORATORY [facility] [address] [place] [address] * HEPATITIS C RNA ADD ON (01/28/2023 3:49 AM EST) Blood Venous blood specimen / Unknown Venipuncture / Unknown 01/28/2023 3:49 AM EST 01/28/2023 3:53 AM EST Jordon Tapia LAB BLOOD ORDERABLES Performing Organization Address [facility] Co de Phone Number LABORATORY [facility] [address] [place] [address] * HEPATITIS C ANTIBODY (01/28/2023 3:49 AM EST) Pathologist [facility] Hepatitis C Antibody Negative Negative 01/28/2023 6:37 AM EST LABORATORY [facility] Comment:Further HCV quantita tive testing not performed per protocol. Blood Venous blood specimen / Unknown Venipuncture / Unknown 01/28/2023 3:49 AM EST 01/28/2023 3:53 AM EST Jordon Tapia LAB BLOOD ORDERABLES Performing Organization Address City/[facility] Co de Phone Number LABORATORY [facility] [address] [place] [address] * PHOSPHORUS (01/28/2023 3:49 AM EST) Pathologist [facility] Phosphorus 3.5 2.5 - 4.8 mg/dL 01/28/2023 4:27 AM EST LABORATORY [facility] Blood Venous blood specimen / Unknown Venipuncture / Unknown 01/28/2023 3:49 AM EST 01/28/2023 3:54 AM EST Adair Albright MD LAB BLOOD O RDERABLES Performing Organization Address City/[facility]/ZIP Co de Phone Number LABORATORY [facility] [address] [place] [address] * MAGNESIUM (01/28/2023 3:49 AM EST) Magnesium 2.1 1.5 - 2.6 mg/dL 01/28/2023 4:27 AM EST LAB[facility]ATORY [facility] Blood Venous blood specimen / Unknown Venipuncture / Unknown 01/28/2023 3:49 AM EST 01/28/2023 3:54 AM EST Adair Albright MD LAB BLOOD O RDERABLES Performing Organization Address [facility] Co de Phone Number LABORATORY [facility] [address] [place] [address] * PT INR (01/28/2023 3:49 AM EST) Prothrombin Time 13.0 11.6 - 15.2 seconds 01/28/2023 4:16 AM EST LABORATORY [facility] INR 1.0 0.8 - 1.2 01/28/2023 4:16 AM EST LABORATORY [facility] Blood Venous blood specimen / Unknown Venipuncture / Unknown 01/28/2023 3:49 AM EST 01/28/2023 3:53 AM EST Narrative LAB[facility]ATORY [facility] - 01/28/2023 4:16 AM EST Warfarin Therapy INR: 2.0-3.0 conventional anticoagulation INR: 2.5-3.5 high intensity anticoagulation Michelle Gonzalez MD LAB BLOOD ORDERABLES Performing Organization Address City/[facility]/ZIP Co de Phone Number LABORATORY [facility] [address] [place] [address] * CBC (01/28/2023 3:49 AM EST) WBC 8.81 4.00 - 10.80 K/uL 01/28/2023 4:07 AM EST LAB[facility]ATORY [facility] RBC 4.73 4.50 - 5.25 M/uL 01/28/2023 4:07 AM EST LAB[facility] HGB 15.9 14.0 - 16.8 g/dL 01/28/2023 4:07 AM EST LAB[facility] HCT 46.3 40.0 - 48.4 % 01/28/2023 4:07 AM EST LAB[facility]ORY [facility] MCV 97.9 82.0 - 99.5 fL 01/28/2023 4:07 AM EST LAB[facility] MCH 33.6 27.0 - 34.0 pg 01/28/2023 4:07 AM EST LAB[facility] MCHC 34.3 32.0 - 36.0 g/dL 01/28/2023 4:07 AM EST LAB[facility] RDW 13.3 11.5 - 15.5 % 01/28/2023 4:07 AM EST LAB[facility] PLT 185 140 - 400 K/uL 01/28/2023 4:07 AM EST LAB[facility] MPV 10.2 6.6 - 11.1 fL 01/28/2023 4:07 AM EST LAB[facility]ATORY [facility] nRBCs 0 <=0 /100 WBCs 01/28/2023 4:07 AM EST LAB[facility]ORY [facility] Blood Venous blood specimen / Unknown Venipuncture / Unknown 01/28/2023 3:49 AM EST 01/28/2023 3:53 AM EST Michelle Gonzalez MD LAB BLOOD ORDERABLES LAB[facility]ATORY [facility] [address] [place], [place] [id number] * (ABNORMAL) BASIC METABOLIC PANEL (01/28/2023 3:49 AM EST) BUN 17 6 - 20 mg/dL 01/28/2023 4:27 AM EST LAB[facility]ATORY [facility] Creatinine 0.9 0.6 - 1.2 mg/dL 01/28/2023 4:27 AM EST LAB[facility]ATORY [facility] Estimated Glomerular Filtration Rate >90 >=60 mL/min 01/28/2023 4:27 AM EST LAB[facility]ATORY [facility] Comment:eGFR is calculated b ased on the CKD-EPI 2020 equation Sodium 138 135 - 146 mmol/L 01/28/2023 4:27 AM EST LAB[facility]ATORY [facility] Potassium 4.5 3.5 - 5.1 mmol/L 01/28/2023 4:27 AM EST LABORATORY C Chloride 102 98 - 107 mmol/L 01/28/2023 4:27 AM EST LABORATORY C CO2 24 22 - 32 mmol/L 01/28/2023 4:27 AM EST LABORATORY C Anion Gap 12 7 - 15 mmol/L 01/28/2023 4:27 AM EST LABORATORY C Glucose 136(H) 70 - 120 mg/dL 01/28/2023 4:27 AM EST LABORATORY [facility] Calcium 9.8 8.4 - 10.2 mg/dL 01/28/2023 4:27 AM EST LABORATORY [facility] Blood Venous blood specimen / Unknown Venipuncture / Unknown 01/28/2023 3:49 AM EST 01/28/2023 3:54 AM EST Michelle Gonzalez MD LAB BLOOD ORDERABLES Performing Organization Address [facility] de Phone Number LABORATORY [place] [address] [place] [address] * (ABNORMAL) HEPARIN, UNFRACTIONATED (01/28/2023 3:49 AM EST) Heparin, Unfractionated 0.39(H) <0.10 IU/mL 01/28/2023 4:17 AM EST LABORATORY [facility] Comment: Unfractionated therapeutic ranges for Anti Xa activity: For Cardiac/Neurologic treatment: 0.3 to 0.6 IU/mL. For treatment of DVT or Pulmonary Embolism: 0.3 to 0.7 IU/mL. Blood Venous blood specimen / Unknown Venipuncture / Unknown 01/28/2023 3:49 AM EST 01/28/2023 3:53 AM EST Pio Freeman DO LAB BLOOD ORDERABLES Performing Organization Address [facility] Co de Phone Number LABORATORY [facility] [address] [place] [address] * (ABNORMAL) HEMOGLOBIN A1C (01/28/2023 3:49 AM EST) Hemoglobin A1C 6.1(H) 4.0 - 5.6 % 01/28/2023 4:16 AM EST LABORATORY [facility] Comment:The use of HbA1c to monitor glycemic status is based on normal hemoglobin and HbA composition. This test should not be used in patients with abnormal hemoglobin that affects the half life of the red blood cell or the in vivo glycation rates. Estimated Average Glucose 128(H) <126 mg/dL 01/28/2023 4:16 AM EST LABORATORY [facility] Blood Venous blood specimen / Unknown Venipuncture / Unknown 01/28/2023 3:49 AM EST 01/28/2023 3:53 AM EST Michelle Gonzalez MD LAB BLOOD ORDERABLES Performing Organization Address [facility] de Phone Number LABORATORY [address] [address] * (ABNORMAL) HEPARIN, UNFRACTIONATED (01/27/2023 11:47 PM EST) Heparin, Unfractionated 0.31(H) <0.10 IU/mL 01/28/2023 12:33 AM EST LABORATORY [facility] Comment: Unfractionated therapeutic ranges for Anti Xa activity: For Cardiac/Neurologic treatment: 0.3 to 0.6 IU/mL. For treatment of DVT or Pulmonary Embolism: 0.3 to 0.7 IU/mL. Blood Venous blood specimen / Unknown Venipuncture / Unknown 01/27/2023 11:47 PM EST 01/28/2023 12:13 AM EST Jordon Tapia DO LAB BLOOD ORDERABLES Performing Organization Address [facility] Co de Phone Number LABORATORY [facility] [address] [place] [address] * (ABNORMAL) HEPARIN, UNFRACTIONATED (01/27/2023 4:30 PM EST) Heparin, Unfractionated 0.16(H) <0.10 IU/mL 01/27/2023 4:46 PM EST LABORATORY [facility] Comment: Unfractionated therapeutic ranges for Anti Xa activity: For Cardiac/Neurologic treatment: 0.3 to 0.6 IU/mL. For treatment of DVT or Pulmonary Embolism: 0.3 to 0.7 IU/mL. Blood Venous blood specimen / Unknown Venipuncture / Unknown 01/27/2023 4:30 PM EST 01/27/2023 4:34 PM EST Jordon Tapia DO LAB BLOOD ORDERABLES Performing Organization Address [facility] Co de Phone Number LABORATORY [facility] [address] [place] [address] * PHOSPHORUS (01/27/2023 8:28 AM EST) Phosphorus 3.2 2.5 - 4.8 mg/dL 01/27/2023 9:11 AM EST LABORATORY [facility] Blood Venous blood specimen / Unknown Venipuncture / Unknown 01/27/2023 8:28 AM EST 01/27/2023 8:32 AM EST Adair Albright MD LAB BLOOD O RDERABLES Performing Organization Address [facility] Co de Phone Number LABORATORY [facility] [address] [place] [address] * MAGNESIUM (01/27/2023 8:28 AM EST) Pathologist [facility] Magnesium 2.0 1.5 - 2.6 mg/dL 01/27/2023 9:11 AM EST LABORATORY [facility] Blood Venous blood specimen / Unknown Venipuncture / Unknown 01/27/2023 8:28 AM EST 01/27/2023 8:32 AM EST Adair Albright MD LAB BLOOD O RDERABLES Performing Organization Address [facility] de Phone Number LABORATORY [place] [address] [place] [address] * HEPARIN, UNFRACTIONATED (01/27/2023 8:28 AM EST) Heparin, Unfractionated <0.10 <0.10 IU/mL 01/27/2023 8:51 AM EST LABORATORY [facility] Comment: Unfractionated therapeutic ranges for Anti Xa activity: For Cardiac/Neurologic treatment: 0.3 to 0.6 IU/mL. For treatment of DVT or Pulmonary Embolism: 0.3 to 0.7 IU/mL. Blood Venous blood specimen / Unknown Venipuncture / Unknown 01/27/2023 8:28 AM EST 01/27/2023 8:32 AM EST Pio Freeman DO LAB BLOOD ORDERABLES LAB[facility]ATORY [facility] [address] [place] [address] * CBC (01/27/2023 6:01 AM EST) WBC 8.73 4.00 - 10.80 K/uL 01/27/2023 6:25 AM EST LAB[facility]ATORY [facility] RBC 4.47 4.50 - 5.25 M/uL 01/27/2023 6:25 AM EST LAB[facility]ORY [facility] HGB 14.9 14.0 - 16.8 g/dL 01/27/2023 6:25 AM EST [facility] HCT 44.3 40.0 - 48.4 % 01/27/2023 6:25 AM EST LAB[facility] MCV 99.1 82.0 - 99.5 fL 01/27/2023 6:25 AM EST LAB[facility] MCH 33.3 27.0 - 34.0 pg 01/27/2023 6:25 AM EST LAB[facility] MCHC 33.6 32.0 - 36.0 g/dL 01/27/2023 6:25 AM EST LAB[facility]ORY [facility] RDW 13.2 11.5 - 15.5 % 01/27/2023 6:25 AM EST LAB[facility]ORY [facility] PLT 184 140 - 400 K/uL 01/27/2023 6:25 AM EST LAB[facility] MPV 10.6 6.6 - 11.1 fL 01/27/2023 6:25 AM EST LAB[facility]AT[facility] nRBCs 0 <=0 /100 WBCs 01/27/2023 6:25 AM EST LAB[facility] Blood Venous blood specimen / Unknown Venipuncture / Unknown 01/27/2023 6:01 AM EST 01/27/2023 6:11 AM EST Michelle Gonzalez MD LAB BLOOD ORDERABLES LAB[facility]ATORY [facility] [address] [place] [address] * BASIC METABOLIC PANEL (01/27/2023 6:01 AM EST) BUN 16 6 - 20 mg/dL 01/27/2023 6:42 AM EST LAB[facility]ATORY [facility] Creatinine 0.9 0.6 - 1.2 mg/dL 01/27/2023 6:42 AM EST LAB[facility]ATORY [facility] Estimated Glomerular Filtration Rate >90 >=60 mL/min 01/27/2023 6:42 AM EST LAB[facility]ATORY [facility] Comment:eGFR is calculated b ased on the CKD-EPI 2020 equation Sodium 137 135 - 146 mmol/L 01/27/2023 6:42 AM EST LAB[facility]ATORY [facility] Potassium 4.0 3.5 - 5.1 mmol/L 01/27/2023 6:42 AM EST LAB[facility] Chloride 103 98 - 107 mmol/L 01/27/2023 6:42 AM EST LAB[facility] CO2 26 22 - 32 mmol/L 01/27/2023 6:42 AM EST LAB[facility] Anion Gap 8 7 - 15 mmol/L 01/27/2023 6:42 AM EST LAB[facility] Glucose 117 70 - 120 mg/dL 01/27/2023 6:42 AM EST LAB[facility] Calcium 9.3 8.4 - 10.2 mg/dL 01/27/2023 6:42 AM EST LAB[facility] Blood Venous blood specimen / Unknown Venipuncture / Unknown 01/27/2023 6:01 AM EST 01/27/2023 6:11 AM EST Michelle Gonzalez MD LAB BLOOD ORDERABLES Performing Organization Address City/[facility]/ZIP Co de Phone Number LABORATORY [facility] [address] [place] [address] * INFLUENZA A/B RSV SARS-COV2,PCR (01/27/2023 3:03 AM EST) SARS-CoV-2 (COVID-19) Result Negative Negative 01/27/2023 4:17 AM [facility] LABORATORY [facility] Comment: No SARS-CoV2 Coronavirus RNA detected by PCR (amplified probe). This express test was developed and its performance characteristics determined by [employer] It has not been cleared or approved [...] (RT-PCR) test, or a Centers for Disease Control- acceptable equivalent. The test is performed in a high complexity Clinical Laboratory Improvement Amendments-(CLIA) certified laboratory. The test is acceptable for SARS-CoV-2 diagnosis, surveillance, and travel within the [place] and to most countries. Please check with local testing authorities about requirements before travel. The validation of bronchial specimens, tracheal aspirates, and sputum for this assay was developed and performance characteristics determined by [employer] The validation of alternate specimen types has not been cleared or approved by the U.S. Food and Drug Administration (FDA). It has been determined that such clearance is not necessary. Influenza A PCR Result Negative Negative 01/27/2023 4:17 AM [facility] LABORATORY [facility] Comment:No Influenza A RNA d etected by PCR (amplified probe) Influenza B PCR Result Negative Negative 01/27/2023 4:17 AM [facility] LABORATORY [facility] Comment:No Influenza B RNA d etected by PCR (amplified probe) RSV PCR Result Negative Negative 01/27/2023 4:17 AM [facility] LABORATORY [facility] Comment:No Respiratory Syncy tial Virus RNA detected by PCR (amplified probe) Upper Respiratory Mid-turbinate nasal swab / Unknown Non-blood Collection / Unknown 01/27/2023 3:03 AM EST 01/27/2023 3:08 AM EST Michelle Gonzalez MD LAB MICRO - GENERAL ORDERABLES LABORATORY [facility] [address] [place] [address] * (ABNORMAL) TROPONIN T, HIGH SENSITIVITY (01/27/2023 2:32 AM EST) [facility] Troponin T, High Sensitivity 30(H) <=22 ng/L 01/27/2023 2:58 AM EST LABORATORY [facility] Blood Venous blood specimen / Unknown Venipuncture / Unknown 01/27/2023 2:32 AM EST 01/27/2023 2:36 AM EST Michelle Gonzalez MD LAB BLOOD ORDERABLES Performing Organization Address [facility]/ZIP Co de Phone Number LABORATORY [facility] [address] [place] [address] * HEPARIN, UNFRACTIONATED (01/27/2023 2:31 AM EST) [facility] Heparin, Unfractionated <0.10 <0.10 IU/mL 01/27/2023 2:56 AM EST LABORATORY [facility] Comment: Unfractionated therapeutic ranges for Anti Xa activity: For Cardiac/Neurologic treatment: 0.3 to 0.6 IU/mL. For treatment of DVT or Pulmonary Embolism: 0.3 to 0.7 IU/mL. Blood Venous blood specimen / Unknown Venipuncture / Unknown 01/27/2023 2:31 AM EST 01/27/2023 2:36 AM EST Michelle Gonzalez MD LAB BLOOD ORDERABLES Performing Organization Address [facility]/ZIP Co de Phone Number LABORATORY [facility] [address] [place] [address] * CBC (01/27/2023 2:31 AM EST) [facility] WBC 9.50 4.00 - 10.80 K/uL 01/27/2023 3:09 AM EST LABORATORY [facility] RBC 4.44 4.50 - 5.25 M/uL 01/27/2023 3:09 AM EST LABORATORY [facility] HGB 14.9 14.0 - 16.8 g/dL 01/27/2023 3:09 AM EST LABORATORY [facility] HCT 44.5 40.0 - 48.4 % 01/27/2023 3:09 AM EST LABORATORY [facility] MCV 100.2 82.0 - 99.5 fL 01/27/2023 3:09 AM EST LABORATORY [facility] MCH 33.6 27.0 - 34.0 pg 01/27/2023 3:09 AM EST LABORATORY [facility] MCHC 33.5 32.0 - 36.0 g/dL 01/27/2023 3:09 AM EST LABORATORY [facility] RDW 13.3 11.5 - 15.5 % 01/27/2023 3:09 AM EST [facility] PLT 180 140 - 400 K/uL 01/27/2023 3:09 AM EST [facility] MPV 10.7 6.6 - 11.1 fL 01/27/2023 3:09 AM EST [facility] nRBCs 0 <=0 /100 WBCs 01/27/2023 3:09 AM EST [facility] Blood Venous blood specimen / Unknown Venipuncture / Unknown 01/27/2023 2:31 AM EST 01/27/2023 2:36 AM EST Michelle Gonzalez MD LAB BLOOD ORDERABLES Performing Organization Address City/[facility] Co de Phone Number [facility] [address] [place] [address] * APTT (01/27/2023 2:31 AM EST) aPTT 32 21 - 38 seconds 01/27/2023 2:56 AM EST [facility] Blood Venous blood specimen / Unknown Venipuncture / Unknown 01/27/2023 2:31 AM EST 01/27/2023 2:36 AM EST Narrative [facility] - 01/27/2023 2:56 AM EST Anticoagulation may affect testing. Refer to [employer] Test Catalog for a list of effects. Michelle Gonzalez MD LAB BLOOD ORDERABLES [facility] [place] [address] [place] [address] * PT INR (01/27/2023 2:31 AM EST) Prothrombin Time 13.2 11.6 - 15.2 seconds 01/27/2023 2:47 AM EST [facility] [place] INR 1.0 0.8 - 1.2 01/27/2023 2:47 AM EST [facility] [place] Blood Venous blood specimen / Unknown Venipuncture / Unknown 01/27/2023 2:31 AM EST 01/27/2023 2:36 AM EST Narrative [facility] [place] - 01/27/2023 2:47 AM EST Warfarin Therapy INR: 2.0-3.0 conventional anticoagulation INR: 2.5-3.5 high intensity anticoagulation Michelle Gonzalez MD LAB BLOOD ORDERABLES [facility] [place] [address] [place] [address] documented in this encounter Visit Diagnoses Diagnosis NSTEMI (non-ST elevated myocardial infarction) (HCC)- Primary Acute myocardial infarction, subendocardial infarction, episode of care unspecified Unstable angina (HCC) Intermediate coronary syndrome Chest pain Chest pain, unspecified S/P PTCA (percutaneous transluminal coronary angioplasty) Postsurgical percutaneous transluminal coronary angioplasty status Status post cardiac catheterization Other postprocedural status Need for oibytepbuo-ogthoqh-cvzgybbme (Tdap) vaccine Need for prophylactic vaccination with combined ptsleoilqs-dtnrdlr-wzpztifuk (DTP) vaccine NSTEMI (non-ST elevated myocardial infarction) (HCC) Acute myocardial infarction, subendocardial infarction, episode of care unspecified 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 Given 01/29/2023 7:54 PM EST 650 mg amLODIPine (Norvasc) tab 5 mg 5 mg, Oral, Daily(AM), First dose (after last modification) on Sun01/30/23 at 0900, Until Discontinued Given 01/30/2023 7:45 AM EST 5 mg Apixaban (Eliquis) tab 5 mg 5 mg, Oral, BID (.AM/PM), First dose on Sun01/30/23 at 1045, Until Discontinued Given 01/30/2023 10:37 AM EST 5 mg aspirin chew tab 81 mg 81 mg, Oral, Daily(AM), First dose on Sun01/27/23 at 0900, Until Discontinued Given 01/30/2023 7:46 AM EST 81 mg Given 01/29/2023 7:58 AM EST 81 mg Given 01/28/2023 9:12 AM EST 81 mg atorvaSTATin (Lipitor) tab 80 mg 80 mg, Oral, Q1700, First dose on 01/27/23 at 1700, Until Discontinued Given 01/29/2023 7:00 PM EST 80 mg Given 01/28/2023 5:36 PM EST 80 mg Given 01/27/2023 4:29 PM EST 80 mg Carvedilol (Coreg) tab 6.25 mg 6.25 mg, Oral, BID (AM/PM MEALS), First dose on Sun01/28/23 at 1700, Until Discontinued, Hold for HR less than 60 or SBP below 100 and notify service if dose is held MUST BE GIVEN WITH MEAL Given 01/29/2023 7:00 PM EST 6.25 mg Given 01/29/2023 7:58 AM EST 6.25 mg Given 01/28/2023 5:36 PM EST 6.25 mg clopidogrel (pLAVix) tab 600 mg 600 mg, Oral, ONCE, On Sun01/30/23 at 1400, For 1 dose Given 01/30/2023 1:51 PM EST 600 mg clopidogrel (pLAVix) tab 75 mg 75 mg, Oral, Daily(AM), First dose on Sun01/31/23 at 0900, Until Discontinued fentaNYL (PF) inj 50 mcg 50 mcg, IV Push, PRN Pain, Severe, Starting on Sun01/29/23 at 1256, Until Sun01/29/23 at 1455, For 2 hours, To be administered in Cardiac Control Systems Engineer intra-procedure only When given IV Push its recommended that the dose be given over 3 to 5 minutes., Intra-Op Given 01/29/2023 2:37 PM EST 25 m cg Given 01/29/2023 1:38 PM EST 25 mcg Given 01/29/2023 12:54 PM EST 50 mcg hEParin 1000 UNIT/ML inj 1,300 Units 1,300 Units (rounded from 1,315.5 Units = 15 Units/kg 87.7 kg Adjusted weight), IV Push, PRN Other, If most recent Heparin Assay result is between 0.21 and 0.29 units/mL, Starting on 01/27/23 at 0207, Until Sun01/29/23 at 1736, Repeat Heparin Assay 6 hours after bolus is administered. Send message to pharmacy if dose needed. Given 01/29/2023 8:51 AM EST 1,300 Units hEParin 1000 UNIT/ML inj 2,600 Units 2,600 Units (rounded from 2,631 Units = 30 Units/kg 87.7 kg Adjusted weight), IV Push, PRN Other, If most recent Heparin Assay result is less than or equal to 0.2 units/mL, Starting on 01/27/23 at 0207, Until Sun01/29/23 at 1736, Repeat Heparin Assay 6 hours after bolus is administered. Send message to pharmacy if dose needed. Given 01/27/2023 5:54 PM EST 2,600 Units Given 01/27/2023 10:37 AM EST 2,600 Units hEParin 25,000 units in 250 mL (Xa-Cardiac) infusion Intravenous, at 0-26.31 mL/hr, Start heparin as soon as baseline labs are drawn. Please select this medication from the infusion pump library! Concentration: 100 units/mL Expires 96 hours after spiking on (date) at (hour) , TITRATE, Starting on 01/27/23 at 0245, Until Sun01/29/23 at 1736 Restarted 01/29/2023 3:00 PM EST 20 Units/kg/hr 17.54 mL/hr New Bag 01/29/2023 8:01 AM EST 20 Units/kg/hr 17.54 mL/ hr Nurse Change 01/29/2023 7:29 AM EST 18 Units/kg/hr 15.79 m L/hr hEParin inj 5,000 Units 5,000 Units, IV Push, PRN Other, Anticoagulation not at goal, Starting on Sun01/29/23 at 1256, Until Sun01/29/23 at 1455, For 2 hours, To be administered in Cardiac Control Systems Engineer intra-procedure., Intra-Op Given 01/29/2023 1:40 PM EST 12,000 Units hEParin inj 5,000 Units 5,000 Units, Subcutaneous, Q8H, First dose on Sun01/29/23 at 2200, Until Discontinued Given 01/30/2023 6:14 AM EST 5,000 Units Abdomen Left Lower Given 01/29/2023 9:37 PM EST 5,000 Units A bdomen Right Lower labetalol (Trandate) inj 10 mg 10 mg, Intravenous, ONCE, On 01/28/23 at 0415, For 1 dose Given 01/28/2023 3:51 AM EST 10 mg Lisinopril (Prinivil) tab 5 mg 5 mg, Oral, Daily(AM), First dose on Tu01/30/23 at 1045, Until Discontinued Given 01/30/2023 10:38 AM EST 5 mg metoprolol succinate XL (toPROL XL) tab 12.5 mg 12.5 mg, Oral, Daily(AM), First dose on Sun01/27/23 at 0900, Until Discontinued, Hold for HR less than 60 or SBP below 100 and notify service if dose is held This med should NOT be Crushed or Chewed. Given 01/28/2023 9:12 AM EST 12.5 mg Given 01/27/2023 8:31 AM EST 12.5 mg midazolam (Versed) 2 MG/2ML inj 1 mg 1 mg, IV Push, PRN Anxiety, Starting on Sun01/29/23 at 1256, Until Sun01/29/23 at 1455, For 2 hours, To be administered in Cardiac Control Systems Engineer intra-procedure only, Intra-Op Given 01/29/2023 1:38 PM EST 0.5 mg Given 01/29/2023 12:54 PM EST 1 mg nitroglycerin (100 mcg/mL) inj 200 mcg 200 mcg, Intracoronary, PRN Coronary spasm/dilatation, Starting on Sun01/29/23 at 1350, Until Sun01/29/23 at 1516, For 2 hours, To be administered in Cardiac Control Systems Engineer intra-procedure only FOR INTRACORONARY OR INTRA-ARTERIAL ADMINISTRATION, Intra-Op Given By 01/29/2023 1:50 PM EST 200 mcg Nitroglycerin (Nitro-Bid) 2 % ointment 0.5 Inch 0.5 Inch, Transdermal, ONCE, On Sun01/29/23 at 0400, For 1 dose, Hold for 6 hours prior to Stress Test and notify service if dose is held 1 inch = 1 packet = 1 gram Given 01/29/2023 3:27 AM EST 0.5 Inches Chest Right Nitroglycerin (Nitrostat) sl tab 0.4 mg 0.4 mg, Sublingual, Q5 MIN PRN Pain, Chest, Starting on 01/28/23 at 0346, Until 01/28/23 at 0351, For 1 dose, This med should NOT be Crushed or Chewed Given 01/28/2023 3:51 AM EST 0.4 mg Ticagrelor (Brilinta) tab 180 mg 180 mg, Oral, ONCE, On Sun01/29/23 at 1315, For 1 dose Given 01/29/2023 1:03 PM EST 180 mg Ticagrelor (Brilinta) tab 90 mg 90 mg, Oral, BID (.AM/PM), First dose on Sun01/29/23 at 2100, Until Discontinued Given 01/30/2023 7:46 AM EST 90 mg Given 01/29/2023 7:54 PM EST 90 mg documented in this encounter Active and Recently Administered Medications Times are shown in EST. Scheduled Medication Order 01/28/2023 01/29/2023 01/30/2023 Acetaminophen (Tylenol) tab 650 mg (COMPLETED) 650 mg, Oral, ONCE, On Sun01/29/23 at 2015, For 1 dose, Maximum of 4 grams (4000 mg) per day. 195 (Given - Provider: Maricarmen Tran RN) amLODIPine (Norvasc) tab 5 mg 5 mg, Oral, Daily(AM), First dose (after last modification) on Sun01/30/23 at 0900, Until Discontinued 0745 (Given - Provider: Diana Weems RN) Apixaban (Eliquis) tab 5 mg 5 mg, Oral, BID (.AM/PM), First dose on Sun01/30/23 at 1045, Until Discontinued 1037 (Given - Provider: Diana Weems RN) aspirin chew tab 81 mg 81 mg, Oral, Daily(AM), First dose on Sun01/27/23 at 0900, Until Discontinued 0912 (Given - Provider: Marleny Christine RN) 0758 (Given - Provider: Betsey Lewis RN) 0746 (Given - Provider: Diana Weems RN) atorvaSTATin (Lipitor) tab 80 mg 80 mg, Oral, Q1700, First dose on 01/27/23 at 1700, Until Discontinued 1736 (Given - Provider: Marleny Christine RN) 1900 (Given - Provider: Betsey Lewis RN) Carvedilol (Coreg) tab 6.25 mg 6.25 mg, Oral, BID (AM/PM MEALS), First dose on 01/28/23 at 1700, Until Discontinued, Hold for HR less than 60 or SBP below 100 and notify service if dose is held MUST BE GIVEN WITH MEAL 1736 (Given - Provider: Marleny Christine RN) 0758 (Given - Provider: Betsey Lewis RN)1900 (Given - Provider: Betsey Lewis RN) 0800 (Not Given - Provider: Diana Weems RN - Reason: Clinician Judgement-Notify Provider - Comment: ok to hold per Christopher Dietz MD) clopidogrel (pLAVix) tab 600 mg (COMPLETED) 600 mg, Oral, ONCE, On Sun01/30/23 at 1400, For 1 dose 1351 (Given - Provider: Diana Weems RN) clopidogrel (pLAVix) tab 75 mg 75 mg, Oral, Daily(AM), First dose on Sun01/31/23 at 0900, Until Discontinued hEParin inj 5,000 Units (CANCELED) 5,000 Units, Subcutaneous, Q8H, First dose on Sun01/29/23 at 2200, Until Discontinued 2137 (Given - Provider: Maricarmen Tran RN) 0614 (Given - Provider: Maricarmen Tran RN) labetalol (Trandate) inj 10 mg (COMPLETED) 10 mg, Intravenous, ONCE, On 01/28/23 at 0415, For 1 dose 0351 (Given - Provider: Dakotah Salinas RN) Lisinopril (Prinivil) tab 5 mg 5 mg, Oral, Daily(AM), First dose on Sun01/30/23 at 1045, Until Discontinued 1038 (Given - Provider: Diana Weems, ZEB) metoprolol succinate XL (toPROL XL) tab 12.5 mg (CANCELED) 12.5 mg, Oral, Daily(AM), First dose on Sun01/27/23 at 0900, Until Discontinued, Hold for HR less than 60 or SBP below 100 and notify service if dose is held This med should NOT be Crushed or Chewed. 0912 (Given - Provider: Marleny Christine RN) Nitroglycerin (Nitro-Bid) 2 % ointment 0.5 Inch (COMPLETED) 0.5 Inch, Transdermal, ONCE, On Sun01/29/23 at 0400, For 1 dose, Hold for 6 hours prior to Stress Test and notify service if dose is held 1 inch = 1 packet = 1 gram 0327 (Given - Provider: Dakotah Salinas RN) Ticagrelor (Brilinta) tab 180 mg (COMPLETED) 180 mg, Oral, ONCE, On Sun01/29/23 at 1315, For 1 dose 1303 (Given - Provider: Suleman Barlow, ZEB) Ticagrelor (Brilinta) tab 90 mg (CANCELED) 90 mg, Oral, BID (.AM/PM), First dose on Sun01/29/23 at 2100, Until Discontinued 1954 (Given - Provider: Maricarmen Tran, ZEB) 0746 (Given - Provider: Diana Weems, ZEB) Continuous Medication Order 01/28/2023 01/29/2023 01/30/2023 hEParin 25,000 units in 250 mL (Xa-Cardiac) infusion (CANCELED) Intravenous, at 0-26.31 mL/hr, Start heparin as soon as baseline labs are drawn. Please select this medication from the infusion pump library! Concentration: 100 units/mL Expires 96 hours after spiking on (date) at (hour) , TITRATE, Starting on 01/27/23 at 0245, Until Sun01/29/23 at 1736 0129 (Rate Verify - Provider: Dakotah Salinas RN)0400 (Rate Verify - Provider: Michellea Confer, RN)0704 (Nurse Change - Provider: Marleny Christine RN)1000 (Rate Verify - Provider: Marleny Christine RN)1218 (New Bag - Provider: Marleny Christine RN)1907 (Nurse Change - Provider: Dakotah Salinas, RN) 0324 (New Bag - Provider: Dakotah Salinas, RN)0729 (Nurse Change - Provider: Dakotah Salinas, RN)0801 (New Bag - Provider: Betsey Lewis, ZEB)1230 (Stopped - Provider: Betsey Lewis, ZEB)1500 (Restarted - Provider: Betsey Lewis, ZEB)1958 (Stopped - Provider: Maricarmen Tran RN) PRN Medication Order 01/28/2023 01/29/2023 01/30/2023 fentaNYL (PF) inj 50 mcg () 50 mcg, IV Push, PRN Pain, Severe, Starting on Sun01/29/23 at 1256, Until Sun01/29/23 at 1455, For 2 hours, To be administered in Cardiac Control Systems Engineer intra-procedure only When given IV Push its recommended that the dose be given over 3 to 5 minutes., Intra-Op 1254 (Given - Provider: Suleman Barlow, ZEB)1338 (Given - Provider: Suleman Barlow, RN)1437 (Given - Provider: Suleman Barlow, ZEB) hEParin 1000 UNIT/ML inj 1,300 Units (CANCELED) 1,300 Units (rounded from 1,315.5 Units = 15 Units/kg 87.7 kg Adjusted weight), IV Push, PRN Other, If most recent Heparin Assay result is between 0.21 and 0.29 units/mL, Starting on 01/27/23 at 0207, Until 01/29/23 at 1736, Repeat Heparin Assay 6 hours after bolus is administered. Send message to pharmacy if dose needed. 0851 (Given - Provider: Betsey Lewis, ZEB) hEParin inj 5,000 Units () 5,000 Units, IV Push, PRN Other, Anticoagulation not at goal, Starting on 01/29/23 at 1256, Until Sun01/29/23 at 1455, For 2 hours, To be administered in Cardiac Control Systems Engineer intra-procedure., Intra-Op 1340 (Given - Provider: Suleman Barlow RN) midazolam (Versed) 2 MG/2ML inj 1 mg () 1 mg, IV Push, PRN Anxiety, Starting on 01/29/23 at 1256, Until Sun01/29/23 at 1455, For 2 hours, To be administered in Cardiac Control Systems Engineer intra-procedure only, Intra-Op 1254 (Given - Provider: Suleman Barlow RN)1338 (Given - Provider: Suleman Barlow RN) nitroglycerin (100 mcg/mL) inj 200 mcg (CANCELED) 200 mcg, Intracoronary, PRN Coronary spasm/dilatation, Starting on Sun01/29/23 at 1350, Until Sun01/29/23 at 1516, For 2 hours, To be administered in Cardiac Control Systems Engineer intra-procedure only FOR INTRACORONARY OR INTRA-ARTERIAL ADMINISTRATION, Intra-Op 1350 (Given By - Provider: Suleman Barlow RN - Comment: Dr. Khan) Nitroglycerin (Nitrostat) sl tab 0.4 mg (COMPLETED) 0.4 mg, Sublingual, Q5 MIN PRN Pain, Chest, Starting on 01/28/23 at 0346, Until 01/28/23 at 0351, For 1 dose, This med should NOT be Crushed or Chewed 0351 (Given - Provider: Dakotah Salinas RN) documented in this encounter Advance Directives Latest Code Status on File Code Status Date Activated Date Inactivated Comments Full Code 01/27/2023 2:07 AM 01/30/2023 6:33 PM Thi s order reflects the patients wishes and were consensually agreed upon. Question Answer Comments Discussion of Advance Directives occurred with: Patient Care Teams Medical Dir Relationship Specialty Start Date End Date Vicky Jordan DO [address] [place] [address] PCP - General Family Medicine 01/22/23 documented as of this encounter
--- OUTSIDE RECORDS SUMMARY | 2023-02-01 21:37 | External Medical Summary ---
Author Name Unknown Address Unknown Organization [id number][place] [place] [address] [place] [address] Laboratory Report Ordering Provider Test Date Status AGUSTIN BARNEY 01/29/2023 05:36:00 Final Warfarin Therapy
INR: 2 .0-3.0 conventional anticoagulation
INR: 2.5- 3.5 high intensity anticoagulation Observation Date Value Abnormality Reference (Units ) Status PT 01/29/2023 05:36:00 13.8 11.6-15.2 (seconds) Final INR 01/29/2023 05:36:00 1.0 0.8-1.2 Final Performing Location [facility] [place] [address] [place] [id number]
--- OUTSIDE RECORDS SUMMARY | 2023-02-01 21:37 | External Medical Summary | Summary of Care ---
Author Name Unknown Organization [facility] Address [address] [place] [address] Phone [phone] Care Team Providers Care Fiber Artist Name Role Phone BobbyVicky anderson Jony NESBITT Primary Care Provider Reason for Visit * Reason Onset Date Comments Medication Update 01/30/2023 Encounter Details Date Type Department Care Team (Late st Contact Info) Description 01/30/2023 Telephone General Internal Medicine, [facility] [address] [place] [address] Aaliyah Fraser DO [address] [place] [address] Medication Update Allergies No known active allergiesdocumented as of this encounter (statuses as of 01/30/2023) Medications Medication Sig Dispensed Refills Start Date [...] 01/30/2023 Active Apixaban 5 MG Oral Tablet (Eliquis)Indicat ions:Paroxysmal A-fib (HCC) Take 1 Tablet by mouth in the morning and 1 Tablet before bedtime. 180 Tablet 2 01/30/2023 10/27/2023 Active Apixaban 5 MG Oral Tablet (Eliquis) Take 1 Tablet by mouth in the morning and 1 Tablet before bedtime. 180 Tablet 1 01/30/2023 01/30/2023 Discontinued documented as of this encounter (statuses as of 01/30/2023) Active Problems Problem Noted Date Diagnosed Date Prediabetes 01/29/2023 Paroxysmal A-fib 01/29/2023 GERD (gastroesophageal reflux disease) 3 Coronary artery disease of n ative artery of [place] heart with stable angina pectoris 01/27/2023 documented as of this encounter (statuses as of 01/30/2023) Resolved Problems Problem Noted Date Diagnosed Date Resolved Date NSTEMI (non-ST elevated myoc ardial infarction) 01/29/2023 01/30/2023 documented as of this encounter (statuses as of 01/30/2023) Immunizations Name Administration Dates Next Due COVID-19 mRNA, LNP-s, No Pre serve, 2-Dose Series (Moderna) 06/12/2020,05/15/2020 COVID-19, MRNA-LNP, 23-24, P F, 30 MCG/0.3 mL, 12 YRS AND ABOVE, IM (Eco-Siteirnaty) 01/18/2023 Pneumococcal Conjugate Vaccine, 20-valent (Prevn ar20) [...] No 01/27/2023 documented as of this encounter Miscellaneous Notes * Telephone Encounter - Aaliyah Fraser DO - 01/30/2023 5:47 PM EST Tish to mail in pharmacy as bautista at [facility] was too expensive out of pocket. documented in this encounter Plan of Treatment Upcoming Encounters Date Type Department Care Team (Late st Contact Info) Description 02/06/2023 2:00 PM EST Office Visit Card[facility], [facility] [address] [address] Edel Sosa PA-C [address] [place] [address] 03/23/2023 10:00 AM EST Office Visit Family Practice [address] [place] [address] [place] [address] Vicky Jordan DO [address] [place] [address] 04/25/2023 3:00 PM EST Office Visit [facility], [facility] [address] [facility] [place] [address] Edel Sosa PA-C [address] [place] [address] Health Maintenance Due Date Last Done Comments [...] this encounter Medical Devices Implanted Type Area Trimmer Machine Operator Device Identifier Shelf Expiration Date Model / Serial / Lot Stent [employer]ience Skypoint 3.50x15 - [id number] Implanted:Qty: 1 on 01/29/2023 by Chris Khan DO at [facility] : VASCULAR DEVICES 07/05/2025 [id number] / / [id number] documented as of this encounter Visit Diagnoses Diagnosis Paroxysmal A-fib (HCC)- Primary Atrial fibrillation documented in this encounter Advance Directives Latest Code Status on File Code Status Date Activated Date Inactivated Comments Full Code 01/27/2023 2:07 AM This orde r reflects the patients wishes and were consensually agreed upon. Question Answer Comments Discussion of Advance Directives occurred with: Patient Care Teams Fiber Artist Relationship Specialty Start Date End Date Vicky Jordan DO [address] [place] [address] PCP - General Family Medicine 01/22/23 documented as of this encounter
--- OUTSIDE RECORDS SUMMARY | 2023-02-01 21:37 | External Medical Summary ---
Author Name Unknown Address Unknown Organization K01:[facility] [place] [address] [address] Laboratory Report Ordering Provider Test Date Status DAGOBERTO OROURKELISSA 01/27/2023 08:28:00 Final Observation Date Value Abnormality Reference (Units ) Status Heparin, unfractionated level 01/27/2023 08:28:00 <0.10 <0.10 (IU/mL) Final Unfractionated therapeutic r anges for Anti Xa activity:
For Cardiac/Neurologic treatment: 0.3 to 0.6 IU/mL.
For treatment of DVT or Pulmonary Embolism: 0.3 to 0.7 IU/mL. Performing Location [facility] [place] [address] [place] [address]
--- OUTSIDE RECORDS SUMMARY | 2023-02-01 21:37 | External Medical Summary ---
Author Name Unknown Address Unknown Organization K01:[facility] [place] [facility] [address] [facility] [address] Laboratory Report Ordering Provider Test Date Status AGUSTIN BARNEY 01/30/2023 06:52:00 Final Observation Date Value Abnormality Reference (Units ) Status WBC, Total 01/30/2023 06:52:00 9.45 4.00-10.80 (K/uL) Final RBC 01/30/2023 06:52:00 4.75 4.50-5.25 (M/uL) Final Hemoglobin 01/30/2023 06:52:00 15.7 14.0-16.8 (g/dL) Final HCT 01/30/2023 06:52:00 47.6 40.0-48.4 (%) Final MCV 01/30/2023 06:52:00 100.2 82.0-99.5 (fL) Final MCH 01/30/2023 06:52:00 33.1 27.0-34.0 (pg) Final MCHC 01/30/2023 06:52:00 33.0 32.0-36.0 (g/dL) Final RDW 01/30/2023 06:52:00 13.3 11.5-15.5 (%) Final Platelets 01/30/2023 06:52:00 207 140-400 (K/uL) Final MPV 01/30/2023 06:52:00 10.7 6.6-11.1 (fL) Final Nucleated erythrocytes/100 leukocytes [Ratio] in Blood by Automated count 01/30/2023 06:52:00 0 <=0 (/100 WBCs) Final Performing Location [facility] [place] [address] [place] [id number]
--- OUTSIDE RECORDS SUMMARY | 2023-02-01 21:37 | External Medical Summary ---
Author Name Unknown Address Unknown Organization K01[place] [place] [facility] [address] [facility] [address] Laboratory Report Ordering Provider Test Date Status AGUSTIN BARNEY 01/27/2023 06:01:00 Final Observation Date Value Abnormality Reference (Units ) Status WBC, Total 01/27/2023 06:01:00 8.73 4.00-10.80 (K/uL) Final RBC 01/27/2023 06:01:00 4.47 4.50-5.25 (M/uL) Final Hemoglobin 01/27/2023 06:01:00 14.9 14.0-16.8 (g/dL) Final HCT 01/27/2023 06:01:00 44.3 40.0-48.4 (%) Final MCV 01/27/2023 06:01:00 99.1 82.0-99.5 (fL) Final MCH 01/27/2023 06:01:00 33.3 27.0-34.0 (pg) Final MCHC 01/27/2023 06:01:00 33.6 32.0-36.0 (g/dL) Final RDW 01/27/2023 06:01:00 13.2 11.5-15.5 (%) Final Platelets 01/27/2023 06:01:00 184 140-400 (K/uL) Final MPV 01/27/2023 06:01:00 10.6 6.6-11.1 (fL) Final Nucleated erythrocytes/100 leukocytes [Ratio] in Blood by Automated count 01/27/2023 06:01:00 0 <=0 (/100 WBCs) Final Performing Location [facility] [place] [address] [place] [id number]
--- OUTSIDE RECORDS SUMMARY | 2023-02-01 21:37 | External Medical Summary | Summary of Care ---
Author Name Unknown Organization [facility] Address [address] [place] [address] Phone [phone] Care Team Providers Care Body Work Auto Trimmer Name Role Phone Vicky Jordan DO Primary Care Provider [phone] Reason for Visit * Reason Onset Date Comments Test Results 01/22/202301/23 Encounter Details Date Type Department Care Team (Late st Contact Info) Description 01/22/2023 Telephone Family Practice [address], [place] [address] [place] [address] Vicky Jordan DO [address] [place] [address] Test Results (01/23) Allergies No known active allergiesdocumented as of this encounter (statuses as of 01/26/2023) Medications Medication Sig Dispensed Refills Start Date [...] the tablet. 60 Tablet 1 01/18/2023 Active documented as of this encounter (statuses as of 01/26/2023) Active Problems No known active problems documented as of this encounter (statuses as of 01/26/2023) Immunizations Name Administration Dates Next Due COVID-19 [...] encounter Miscellaneous Notes * Telephone Encounter - Vicky Jordan DO - 01/26/2023 5:48 PM EST Spoke with to check in on patient. Going to [place] at 930PM per . * Telephone Encounter - María Stewart CMA - 01/23/2023 1:12 PM EST Pt made aware of results while in cardio today. He is agreeable to trial of statin. Please send to [employer] mail order. He says the protonix so far has not made a difference. * Telephone Encounter - Isatu Dominguez OSA - 01/23/2023 1:02 PM EST Returning call Please call [phone] Millie * Telephone Encounter - Milile NewtonPAULA - 01/23/2023 12:49 PM EST Called, left message for patient to return call. Thank you * Telephone Encounter - Vicky Jordan DO - 01/23/2023 9:29 AM EST Please let pt know: Lab studies looked good. Based on overall risk, he should be on a statin for vascular protection. Is he agreeable? Did the protonix make any difference? I know it has only been a couple of days. Keep cardio today as scheduled. * Telephone Encounter - Isatu Dominguez OSA - 01/22/2023 3:48 PM EST Would like lab results Please call documented in this encounter Plan of Treatment Upcoming Encounters Date Type Department Care Team (Late st Contact Info) Description 03/23/2023 10:00 AM EST Office Visit Family Practice [address] [facility], [place] 293 [place] [address] Vicky [facility] [address] 04/25/2023 3:00 PM EST Office Visit Cardiology, [facility] [address] [facility] [place] [address] Edel Sosa PA-C [address] [place] [address] [place] [address] Health Maintenance Due Date Last Done Comments [...] filedocumented as of this encounter Care Teams Body Work Auto Trimmer Relationship Specialty Start Date End Date Vicky Jordan DO [address] [place], [place] [address] [address] PCP - General Family Medicine 01/22/23 documented as of this encounter
--- OUTSIDE RECORDS SUMMARY | 2023-02-01 21:37 | External Medical Summary ---
Author Name Unknown Address Unknown Organization [id number]:[facility] [place] [address] [place] [address] Laboratory Report Ordering Provider Test Date Status SAVITAAGUSTIN 01/27/2023 02:31:00 Final Warfarin Therapy
INR: 2 .0-3.0 conventional anticoagulation
INR: 2.5- 3.5 high intensity anticoagulation Observation Date Value Abnormality Reference (Units ) Status PT 01/27/2023 02:31:00 13.2 11.6-15.2 (seconds) Final INR 01/27/2023 02:31:00 1.0 0.8-1.2 Final Performing Location [facility] [place] - [address] [place] [address]
--- OUTSIDE RECORDS SUMMARY | 2023-02-01 21:37 | External Medical Summary | Summary of Care ---
Author Name Unknown Organization [facility] Address [address] [place] [address] Phone [phone] Care Team Providers Care Senior Stack Engineer Name Role Phone CharlotteVicky cevallos Primary Care Provider [phone] Encounter Details Date Type Department Care Team (Late st Contact Info) Description 01/28/2023 CardioDiagnostic Study Cardiology [facility] [address] [place] [address] Jordon Tapia, [address] [place] [address] EKG Report Allergies No known active allergiesdocumented as of this encounter (statuses as of 01/29/2023) Medications Medication Sig Dispensed Refills Start Date End Date Status NATURAL SUPPLEMENT Fruits and Veggies - 3 capsules each daily in morning 0 Suspended Pantoprazole Sodium 20 MG Oral Tablet Delayed Release (Protonix) Take 1 Tablet by mouth in the morning and 1 Tablet before bedtime. 30 minutes before the first meal of the day. Do not crush, split or chew the tablet. 60 Tablet 1 01/18/2023 Suspended Additional Information Aspirin 81 MG Oral Tablet Chewable Take 1 Tablet by mouth in the morning. 34 Tablet 11 01/23/2023 Suspended Additional Information Atorvastatin Calcium 40 MG Oral Tablet (Lipitor) Take 1 Tablet by mouth in the morning. 100 Tablet 3 01/23/2023 Suspended Additional Information Metoprolol Succinate ER 25 MG Oral Tablet Extended Release 24 Hour (Toprol XL) Take 1 Tablet by mouth in the morning. 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 01/27/2023 documented as of this encounter (statuses as of 01/29/2023) Immunizations Name Administration Dates Next Due COVID-19 [...] as of this encounter Procedure Notes * Pio Freeman DO - 01/28/2023 3:34 AM ESTAssociated Order(s): EKG REPORT REASON FOR STUDY: chest pain CONCLUSIONS: Normal sinus rhythm with sinus arrhythmia Normal ECG When compared with ECG of 23-JAN-2023 13:56, Sinus rhythm has replaced Junctional rhythm Ventricular Rate: 70 Atrial Rate: 70 [place] Interval: 146 QRS Duration: 84 QT/QTc: 378/408 ms P-R-T Arroyo: 28 : 15 : 80 degrees documented in this encounter Plan of Treatment Upcoming Encounters Date Type Department Care Team (Late st Contact Info) Description 03/23/2023 10:00 AM EST Office Visit Family Practice [address], [place] 293 [facility] [address] Vicky Jordan DO 293 [place] [address] 04/25/2023 3:00 PM EST Office Visit Cardiology, [facility] 132 [facility] [place] [address] Edel Sosa PA-C [address] [place] [address] [place] [address] Scheduled Procedures Name Priority Associated Diagnoses Date/Ti me PTCA, CARDIAC ANGIOPLASTY, PERCUTANEOUS, 1 ARTERY CAD (coronary artery disease) 01/29/2023 12:39 PM EST Health Maintenance Due Date Last Done Comments HIV Screening 1973 Cologuard 2003 Colonoscopy 2003 Colorectal Cancer Screening 2003 Fecal Occult Blood Test 2003 Sigmoidoscopy 2003 Zoster Vaccines (1 of 2) 01/14/2008 Influenza Vaccine (FLU shot) (#1) 2022 04/25/2019 AAA Screening 2023 Depression Screening 01/19/2024 01/18/2023 Diabetes Screening 01/29/2026 01/29/2023, 1 03/30/2022, 01/28/2023, Additional history exists DTaP,Tdap,and Td Vaccines (2 - Td or Tdap) 01/18/2033 01/18/2023 COVID-19 Vaccine Completed 01/18/2023, 05/2020, 05/15/2020 Pneumococcal Vaccine: 65+ Years Completed 01/18/2023 Hepatitis C Screening Completed 01/28/2023 , 01/28/2023, 01/28/2023 GARDASIL-HPV IMMUNIZATION SERIES Aged Out No longer eligible based on patient's age to complete this topic Hepatitis B Aged Out No longer eligi ble based on patient's age to complete this topic MENINGOCOCCAL (MENACTRA/MENVEO) Aged Out No longer eligible based on patient's age to complete this topic documented as of this encounter Medical Devices Implanted Type Area Endoscopy Technican Device Identifier Shelf Expiration Date Model / Serial / Lot Stent Xience Skypoint 3.50x15 - [id number] Implanted:Qty: 1 on 01/29/2023 by Chris Khan DO at [facility] : VASCULAR DEVICES 07/05/2025 [id number] / / [id number] documented as of this encounter Procedures Procedure Name Priority Date/Time Associated Diagnosis Comments EKG REPORT 01/28/2023 3:34 AM EST documented in this encounter Results * EKG REPORT (01/28/2023 3:34 AM EST) 01/28/2023 3:34 AM EST Narrative Procedure Note Pio Freeman DO - 01/28/2023 3:34 AM EST REASON FOR STUDY: chest pain CONCLUSIONS: Normal sinus rhythm with sinus arrhythmia Normal ECG When compared with ECG of 23-JAN-2023 13:56, Sinus rhythm has replaced Junctional rhythm Ventricular Rate: 70 Atrial Rate: 70 NJ Interval: 146 QRS Duration: 84 QT/QTc: 378/408 ms P-R-T Arroyo: 28 : 15 : 80 degrees Jordonamrik Juarez Willie DO EKG documented in this encounter Advance Directives Latest Code Status on File Code Status Date Activated Date Inactivated Comments Full Code 01/27/2023 2:07 AM This orde r reflects the patients wishes and were consensually agreed upon. Question Answer Comments Discussion of Advance Directives occurred with: Patient Care Teams Senior Stack Engineer Relationship Specialty Start Date End Date Vicky Jordan DO [address] [place] [address] PCP - General Family Medicine 01/22/23 documented as of this encounter
--- OUTSIDE RECORDS SUMMARY | 2023-02-01 21:37 | External Medical Summary ---
Author Name Unknown Address Unknown Organization [id number]:[facility] [place] [address] [place] [address] Laboratory Report Ordering Provider Test Date Status SAVITAAGUSTIN 01/28/2023 03:49:00 Final Warfarin Therapy
INR: 2 .0-3.0 conventional anticoagulation
INR: 2.5- 3.5 high intensity anticoagulation Observation Date Value Abnormality Reference (Units ) Status PT 01/28/2023 03:49:00 13.0 11.6-15.2 (seconds) Final INR 01/28/2023 03:49:00 1.0 0.8-1.2 Final Performing Location [facility] [place] [address] [place] [address]
--- OUTSIDE RECORDS SUMMARY | 2023-02-01 21:37 | External Medical Summary ---
Author Name Unknown Address Unknown Organization [id number]:[facility] [place] [address] [place] [address] Laboratory Report Ordering Provider Test Date Status JABIER CHILDS 01/28/2023 03:49:00 Final Observation Date Value Abnormality Reference (Units ) Status Hep C Ab 01/28/2023 03:49:00 Negative Negative Final Further HCV quantitative ishaan ting not performed per protocol. Performing Location [facility] [place] [address] [place] [address]
--- OUTSIDE RECORDS SUMMARY | 2023-02-01 21:37 | External Medical Summary ---
Author Name Unknown Address Unknown Organization [id number]:[facility] - [address] [place] [address] Laboratory Report Ordering Provider Test Date Status SHAKIRA ABERNATHY 01/29/2023 05:36:00 Final Observation Date Value Abnormality Reference (Units ) Status Phosphate 01/29/2023 05:36:00 3.5 2.5-4.8 (m g/dL) Final Performing Location [facility] - [address] [place] [id number]
--- OUTSIDE RECORDS SUMMARY | 2023-02-01 21:37 | External Medical Summary ---
Author Name Unknown Address Unknown Organization [id number]:[facility] [place] [facility] [address] [place] [address] Laboratory Report Ordering Provider Test Date Status AMADEO,JABIER 01/27/2023 16:30:00 Final Observation Date Value Abnormality Reference (Units ) Status Heparin, unfractionated level 01/27/2023 16:30:00 0.16 Above high normal <0.10 (IU/mL) Final Unfractionated therapeutic r anges for Anti Xa activity:
For Cardiac/Neurologic treatment: 0.3 to 0.6 IU/mL.
For treatment of DVT or Pulmonary Embolism: 0.3 to 0.7 IU/mL. Performing Location [facility] [place] [address] [facility] [address]
--- OUTSIDE RECORDS SUMMARY | 2023-02-01 21:37 | External Medical Summary ---
Author Name Unknown Address Unknown Organization K01:[facility] [place] - [facility] [address] [place] [address] Laboratory Report Ordering Provider Test Date Status AGUSTIN BARNEY 01/29/2023 05:36:00 Final Observation Date Value Abnormality Reference (Units ) Status BUN 01/29/2023 05:36:00 17 6-20 (mg/dL) Final Creatinine 01/29/2023 05:36:00 0.8 0.6-1.2 (mg/dL) Final Glomerular filtration rate/1.73 sq M.predicted [Volume Rate/Area] in Serum, Plasma or Blood by Creatinine-based formula (CKD-EPI) 01/29/2023 05:36:00 >90 >=60 (mL/min) Final eGFR is calculated based on the CKD-EPI 2020 equation SODIUM 01/29/2023 05:36:00 136 135-146 (m mol/L) Final Potassium 01/29/2023 05:36:00 4.2 3.5-5.1 (m mol/L) Final Cl 01/29/2023 05:36:00 102 98-107 (mm ol/L) Final CO2 01/29/2023 05:36:00 26 22-32 (mmo l/L) Final Anion gap 01/29/2023 05:36:00 8 7-15 (mmol /L) Final Glucose 01/29/2023 05:36:00 122 Above high normal 70 -120 (mg/dL) Final Calcium 01/29/2023 05:36:00 9.5 8.4-10.2 ( mg/dL) Final Performing Location [facility] [place] - [address] [place] [address]
--- OUTSIDE RECORDS SUMMARY | 2023-02-01 21:37 | External Medical Summary ---
Author Name Unknown Address Unknown Organization K01:[facility] - [address] [address] Laboratory Report Ordering Provider Test Date Status SHAKIRA ABERNATHY 01/30/2023 06:52:00 Final Observation Date Value Abnormality Reference (Units ) Status Magnesium 01/30/2023 06:52:00 2.3 1.5-2.6 (m g/dL) Final Performing Location [facility] - [address] [place] [address]
--- OUTSIDE RECORDS SUMMARY | 2023-02-01 21:37 | External Medical Summary ---
Author Name Unknown Address Unknown Organization K01:[facility] [place] [facility] [address] [facility] [address] [place] [address] Laboratory Report Ordering Provider Test Date Status AMADEO,JABIER 01/29/2023 15:30:00 Final Observation Date Value Abnormality Reference (Units ) Status Heparin, unfractionated level 01/29/2023 15:30:00 >1.10 Above upper panic limits <0.10 (IU/mL) Final Unfractionated therapeutic r anges for Anti Xa activity:
For Cardiac/Neurologic treatment: 0.3 to 0.6 IU/mL.
For treatment of DVT or Pulmonary Embolism: 0.3 to 0.7 IU/mL. Performing Location [facility] [place] [address] [place] [place] [address]
--- OUTSIDE RECORDS SUMMARY | 2023-02-01 21:37 | External Medical Summary ---
Author Name Unknown Address Unknown Organization K01:[facility] [place] [address] [facility] [address] Laboratory Report Ordering Provider Test Date Status SAVITAAGUSTIN 01/28/2023 03:49:00 Final Observation Date Value Abnormality Reference (Units ) Status HbA1C 01/28/2023 03:49:00 6.1 Above high normal 4. 0-5.6 (%) Final The use of HbA1c to monitor glycemic status is based on normal hemoglobin and HbA composition. This test should not be used in patients with abnormal hemoglobin that affects the half life of the red blood cell or the in vivo glycation rates. Glucose, estimated average 01/28/2023 03:49:00 128 Above high normal <126 (mg/dL) Altaf tafoya Performing Location [facility] [place] [address] [facility] [address]
--- OUTSIDE RECORDS SUMMARY | 2023-02-01 21:37 | External Medical Summary ---
Author Name Unknown Address Unknown Organization K01:[facility] [place] [facility] [address] [facility] [address] [facility] [address] Laboratory Report Ordering Provider Test Date Status AGUSTIN BARNEY 01/29/2023 05:36:00 Final Observation Date Value Abnormality Reference (Units ) Status WBC, Total 01/29/2023 05:36:00 9.13 4.00-10.80 (K/uL) Final RBC 01/29/2023 05:36:00 4.62 4.50-5.25 (M/uL) Final Hemoglobin 01/29/2023 05:36:00 15.5 14.0-16.8 (g/dL) Final HCT 01/29/2023 05:36:00 46.3 40.0-48.4 (%) Final MCV 01/29/2023 05:36:00 100.2 82.0-99.5 (fL) Final MCH 01/29/2023 05:36:00 33.5 27.0-34.0 (pg) Final MCHC 01/29/2023 05:36:00 33.5 32.0-36.0 (g/dL) Final RDW 01/29/2023 05:36:00 13.4 11.5-15.5 (%) Final Platelets 01/29/2023 05:36:00 193 140-400 (K/uL) Final MPV 01/29/2023 05:36:00 10.6 6.6-11.1 (fL) Final Nucleated erythrocytes/100 leukocytes [Ratio] in Blood by Automated count 01/29/2023 05:36:00 0 <=0 (/100 WBCs) Final Performing Location [facility] [place] [address] [facility] [address]
--- OUTSIDE RECORDS SUMMARY | 2023-02-01 21:37 | External Medical Summary ---
Author Name Unknown Address Unknown Organization K01:[facility] [place] - [facility] [address] [facility] [address] [facility] [address] Laboratory Report Ordering Provider Test Date Status AGUSTIN BARNEY 01/28/2023 03:49:00 Final Observation Date Value Abnormality Reference (Units ) Status WBC, Total 01/28/2023 03:49:00 8.81 4.00-10.80 (K/uL) Final RBC 01/28/2023 03:49:00 4.73 4.50-5.25 (M/uL) Final Hemoglobin 01/28/2023 03:49:00 15.9 14.0-16.8 (g/dL) Final HCT 01/28/2023 03:49:00 46.3 40.0-48.4 (%) Final MCV 01/28/2023 03:49:00 97.9 82.0-99.5 (fL) Final MCH 01/28/2023 03:49:00 33.6 27.0-34.0 (pg) Final MCHC 01/28/2023 03:49:00 34.3 32.0-36.0 (g/dL) Final RDW 01/28/2023 03:49:00 13.3 11.5-15.5 (%) Final Platelets 01/28/2023 03:49:00 185 140-400 (K/uL) Final MPV 01/28/2023 03:49:00 10.2 6.6-11.1 (fL) Final Nucleated erythrocytes/100 leukocytes [Ratio] in Blood by Automated count 01/28/2023 03:49:00 0 <=0 (/100 WBCs) Final Performing Location LAB[facility]ATORY [facility] [place] - [address] [facility] [address]
--- OUTSIDE RECORDS SUMMARY | 2023-02-01 21:37 | External Medical Summary ---
Author Name Unknown Address Unknown Organization K01:LABORATORY [facility] [place] - [facility] [address] [facility] [place] [address] Laboratory Report Ordering Provider Test Date Status AMADEO,JABIER 01/29/2023 05:36:00 Final Observation Date Value Abnormality Reference (Units ) Status Heparin, unfractionated level 01/29/2023 05:36:00 0.21 Above high normal <0.10 (IU/mL) Final Unfractionated therapeutic r anges for Anti Xa activity:
For Cardiac/Neurologic treatment: 0.3 to 0.6 IU/mL.
For treatment of DVT or Pulmonary Embolism: 0.3 to 0.7 IU/mL. Performing Location LAB[facility]ATORY [facility] [place] - [address] [facility] [address]
--- OUTSIDE RECORDS SUMMARY | 2023-02-01 21:37 | External Medical Summary ---
Author Name Unknown Address Unknown Organization K01:[facility] - [address] [place] [address] Laboratory Report Ordering Provider Test Date Status SHAKIRA ABERNATHY 01/27/2023 08:28:00 Final Observation Date Value Abnormality Reference (Units ) Status Magnesium 01/27/2023 08:28:00 2.0 1.5-2.6 (m g/dL) Final Performing Location [facility] - [address] [place] [address]
--- OUTSIDE RECORDS SUMMARY | 2023-02-01 21:37 | External Medical Summary ---
Author Name Unknown Address Unknown Organization K01:[facility] - [address] [place] [address] Laboratory Report Ordering Provider Test Date Status SHAKIRA ABERNATHY 01/27/2023 08:28:00 Final Observation Date Value Abnormality Reference (Units ) Status Phosphate 01/27/2023 08:28:00 3.2 2.5-4.8 (m g/dL) Final Performing Location [facility] - [address] [place] [address]
--- OUTSIDE RECORDS SUMMARY | 2023-02-01 21:37 | External Medical Summary ---
Author Name Unknown Address Unknown Organization K01:[facility] [place] - [address] [place] [address] Laboratory Report Ordering Provider Test Date Status SAVITAAGUSTIN 01/27/2023 02:32:00 Final Observation Date Value Abnormality Reference (Units ) Status Troponin T 01/27/2023 02:32:00 30 Above high normal < =22 (ng/L) Final Performing Location [facility] - [address] [place] [address]
--- OUTSIDE RECORDS SUMMARY | 2023-02-01 21:37 | External Medical Summary ---
Author Name Unknown Address Unknown Organization K01:[facility] [place] - [address] [facility] [place] [address] Laboratory Report Ordering Provider Test Date Status SHAKIRA ABERNATHY 01/29/2023 05:36:00 Final Observation Date Value Abnormality Reference (Units ) Status Uric Acid 01/29/2023 05:36:00 9.0 Above high normal 3. 4-7.0 (mg/dL) Final Performing Location [facility] [place] [address] [place] [address]
--- OUTSIDE RECORDS SUMMARY | 2023-02-01 21:37 | External Medical Summary ---
Author Name Unknown Address Unknown Organization K01:[facility] [place] - [address] [facility] [address] [place] [address] Laboratory Report Ordering Provider Test Date Status AGUSTIN BARNEY 01/27/2023 06:01:00 Final Observation Date Value Abnormality Reference (Units ) Status BUN 01/27/2023 06:01:00 16 6-20 (mg/dL) Final Creatinine 01/27/2023 06:01:00 0.9 0.6-1.2 (mg/dL) Final Glomerular filtration rate/1.73 sq M.predicted [Volume Rate/Area] in Serum, Plasma or Blood by Creatinine-based formula (CKD-EPI) 01/27/2023 06:01:00 >90 >=60 (mL/min) Final eGFR is calculated based on the CKD-EPI 2020 equation SODIUM 01/27/2023 06:01:00 137 135-146 (m mol/L) Final Potassium 01/27/2023 06:01:00 4.0 3.5-5.1 (m mol/L) Final Cl 01/27/2023 06:01:00 103 98-107 (mm ol/L) Final CO2 01/27/2023 06:01:00 26 22-32 (mmo l/L) Final Anion gap 01/27/2023 06:01:00 8 7-15 (mmol /L) Final Glucose 01/27/2023 06:01:00 117 70-120 (mg /dL) Final Calcium 01/27/2023 06:01:00 9.3 8.4-10.2 ( mg/dL) Final Performing Location [facility] [place] - [address] [place] [address]
--- OUTSIDE RECORDS SUMMARY | 2023-02-01 21:37 | External Medical Summary ---
Author Name Unknown Address Unknown Organization K01:[facility] - [address] [place] [address] Laboratory Report Ordering Provider Test Date Status SHAKIRA ABERNATHY 01/30/2023 06:52:00 Final Observation Date Value Abnormality Reference (Units ) Status Phosphate 01/30/2023 06:52:00 3.6 2.5-4.8 (m g/dL) Final Performing Location [facility] - [address] [place] [address]
--- OUTSIDE RECORDS SUMMARY | 2023-02-01 21:37 | External Medical Summary | Summary of Care ---
Author Name Unknown Organization [facility] Address [address] [place] [address] Phone [phone] Care Team Providers Care Plug Sorter Name Role Phone BobbyVicky anderson Jony NESBITT Primary Care Provider Reason for Visit * Reason Onset Date Comments Medication Update 01/30/2023 Encounter Details Date Type Department Care Team (Late st Contact Info) Description 01/30/2023 Telephone General Internal Medicine, [facility] [address] [place] [address] Aaliyah Fraser DO [address] [place] [address] Medication Update Allergies No known [...] artery disease of n ative artery of [place] heart with stable angina pectoris 01/27/2023 documented [...] MCG/0.3 mL, 12 YRS AND ABOVE, IM ([employer]irnaty) 01/18/2023 Pneumococcal Conjugate Vaccine, 20-valent (Prevn ar20) [...] to mail in pharmacy as bautista at [facility] was too expensive out of pocket. documented in this encounter Plan of Treatment Upcoming Encounters Date Type Department Care Team (Late st Contact Info) Description 02/06/2023 2:00 PM EST [facility] [address] [facility] [address] Edel Sosa PA-C [address] [place] [address] 03/23/2023 10:00 AM EST Office Visit Family Practice [address] [place] [address] [place] [address] Vicky Jordan DO [address] [facility] [place] [address] 04/25/2023 3:00 PM EST Office Visit [facility] [address] [facility] [place] [address] Edel Sosa PA-C [address] [place] [address] Health Maintenance Due Date Last Done Comments [...] this encounter Medical Devices Implanted Type Area Fiction And Nonfiction Author Device Identifier Shelf Expiration Date Model / Serial / Lot Stent Xience Skypoint [id number] - [id number] Implanted:Qty: 1 on 01/29/2023 by Chris Khan DO at [facility] : VASCULAR DEVICES 07/05/2025 [id number] / / [id number] documented as of this encounter Visit Diagnoses Diagnosis Paroxysmal A-fib (HCC)- Primary Atrial fibrillation documented in this encounter Advance Directives Latest Code Status on File Code Status Date Activated Date Inactivated Comments Full Code 01/27/2023 2:07 AM This orde r reflects the patients wishes and were consensually agreed upon. Question Answer Comments Discussion of Advance Directives occurred with: Patient Care Teams Plug Sorter Relationship Specialty Start Date End Date Vicky Jordan DO [address] [facility] [place] [address] PCP - General Family Medicine 01/22/23 documented as of this encounter
--- OUTSIDE RECORDS SUMMARY | 2023-02-01 21:37 | External Medical Summary ---
Author Name Unknown Address Unknown Organization K01:LAB[facility]AT[facility] - [facility] [address] [place] [address] Laboratory Report Ordering Provider Test Date Status AGUSTIN BARNEY 01/28/2023 03:49:00 Final Observation Date Value Abnormality Reference (Units ) Status BUN 01/28/2023 03:49:00 17 6-20 (mg/dL) Final Creatinine 01/28/2023 03:49:00 0.9 0.6-1.2 (mg/dL) Final Glomerular filtration rate/1.73 sq M.predicted [Volume Rate/Area] in Serum, Plasma or Blood by Creatinine-based formula (CKD-EPI) 01/28/2023 03:49:00 >90 >=60 (mL/min) Final eGFR is calculated based on the CKD-EPI 2020 equation SODIUM 01/28/2023 03:49:00 138 135-146 (m mol/L) Final Potassium 01/28/2023 03:49:00 4.5 3.5-5.1 (m mol/L) Final Cl 01/28/2023 03:49:00 102 98-107 (mm ol/L) Final CO2 01/28/2023 03:49:00 24 22-32 (mmo l/L) Final Anion gap 01/28/2023 03:49:00 12 7-15 (mmol /L) Final Glucose 01/28/2023 03:49:00 136 Above high normal 70 -120 (mg/dL) Final Calcium 01/28/2023 03:49:00 9.8 8.4-10.2 ( mg/dL) Final Performing Location [facility] - [address] [place] [address]
--- OUTSIDE RECORDS SUMMARY | 2023-02-01 21:38 | External Medical Summary | Summary of Care ---
Author Name Unknown Organization [facility] Address [address] [place] [address] Phone [phone] Care Team Providers Care Rice Farmworker Name Role Phone Vicky Jordan DO Primary Care Provider [phone] Reason for Referral * Evaluate & Treat - Unlimited Visits (Within 3 days (urgent)) - Authorized Specialty Diagnoses / Procedures Referred By Tabitha t Referred To Contact Cardiovascular Medicine / Cardiology Diagnoses Other chest pain MCCANN (dyspnea on exertion) History of atrial fibrillation Vicky Jordan DO [address] [place] [address] Referral ID Status Reason Start Date Expiration Date Visits Requested Visits Authorized [id number] Authorized Specialty Services Required 3 999 999 [...] AM EST Office Visit Family Practice [address] [facility] [place] [address] [place] [address] Vicky Jordan DO [address] [place] [address] Other chest pain*; MCCANN (dyspnea on exertion); [...] MCG/0.3 mL, 12 YRS AND ABOVE, IM ([employer] [facility]) 01/18/2023 Pneumococcal Conjugate Vaccine, 20-valent (Prevn ar20) [...] Move slowly from room to room. Dont ivllegas. Sit down to get dressed. Use a [...] 's order LAB DRAWN AND SENT TO [facility]. Zio Patch applied-to wear x 14 days. Serial # [id number] Pulse ox at rest/exercise completed Rest Pulse ox 96%, HR 66 Walking Pulse ox 95%, HR 96 Rest Pulse ox 97%, HR 70 * Vicky Jordan, - 01/18/2023 9:51 AM EST SUBJECTIVE: Chief Complaint Patient presents with NEW PATIENT HPI: Gildardo [place] is a 63 year old male who presents today to [facility]. Pt has not seen a physician in 16 years. He is a kylie by [employer]. He had one hospitalization about a year [...] - 3 capsules each daily in morning Mqmtdan-Wkxfzm-Zilzu Pertussis 5-2.5-18.5 LF-MCG/0.5 Suspension Prefilled Syringe (Boostrix) [...] to have A.fib. unclear if this is contributor to current symptoms. Zio placed. Also with anginal symptoms, will need emergent cardiology f/u. Scheduling working on this. Lab studies today. Pulse ox ok but [...] minutes. Vicky Jordan DO * Shadia Easton [facility] - 01/18/2023 9:45 AM EST Hasn't been to a doctor in 19 years Went to [facility] a year ago for difficulty breathing - said heart was okay. SOB with activity lately inlast 3-4 wks. Tried Primatene mist, claritin, peptobismol Stopped smoking 17 days ago - cold turkey Had taken ibuprofen 600 mg in past, but stopped that. documented in this encounter Nursing Notes * Millie Cannon, RN - 01/18/2023 10:12 AM EST New patient 1 year ago went to hospital for chest pain/shoulder blade pain-had work up-not cardiac. Continues with the pain-has increased recently. SOB with exertion. Pain at night when lying down also-has to sit up for a while. Pt stopped smoking 17 days ago. Has occ cough-brings up grnluo-hfrpt-zh yellowish.. Let shoulder pain x 1 1/2 years-fell getting out of hot tub. documented in this encounter Plan of Treatment Upcoming Encounters Date Type Department Care Team (Late st Contact Info) Description 03/23/2023 10:00 AM EST Office Visit Family Practice [address] [facility] [place] [address] [place] [address] Vicky Jordan DO 293 [facility], [place] [address] 04/25/2023 3:00 PM EST Office Visit Cardiology, [facility] 132 [facility] [place] [address] Edel Sosa PA-C [address] [place] [address] Raffy [place] [phone] Scheduled Orders Name Type Priority Associated Diagnoses [...] LAB BLOOD ORDERABLES LAB[facility]ORY [facility] [address] [place] [address] * (ABNORMAL) CBC (01/18/2023 12:38 PM EST) [...] 11.1 fL 01/18/2023 11:51 PM EST LABORATORY [facility] nRBCs 0 <=0 /100 WBCs 01/18/2023 11:51 PM EST LABORATORY C Blood Venous blood specimen / Unknown Venipuncture / Unknown 01/18/2023 12:38 PM EST 01/18/2023 12:38 PM EST Vicky M Bobbymonica LAB BLOOD ORDERABLES LABORATORY [facility] [address] [place] [address] * MAGNESIUM (01/18/2023 12:38 PM EST) Magnesium 2.3 1.5 - 2.6 mg/dL 01/19/2023 2:02 AM EST LABORATORY C Blood Venous blood specimen / Unknown Venipuncture / Unknown 01/18/2023 12:38 PM EST 01/18/2023 12:38 PM EST Vicky Porterjanicemonica LAB BLOOD ORDERABLES Performing Organization Address City/[facility] Co de Phone Number LABORATORY [facility] [address] [place] [address] * VITAMIN B12 (01/18/2023 12:38 PM EST) Vitamin B12 545 232 - 1,245 pg/mL 01/19/2023 2:43 AM EST LABORATORY [facility] Blood Venous blood specimen / Unknown Venipuncture / Unknown 01/18/2023 12:38 PM EST 01/18/2023 12:38 PM EST Vicky Porterjanicemonica LAB BLOOD ORDERABLES Performing Organization Address City/[facility] Co de Phone Number LABORATORY [facility] [address] [place] [address] * TSH WITH FREE T4 IF INDICATED (01/18/2023 12:38 PM EST) TSH 2.11 0.27 - 4.20 uIU/mL 01/19/2023 2:43 AM EST LAB[facility]ORY [facility] Blood Venous blood specimen / Unknown Venipuncture / Unknown 01/18/2023 12:38 PM EST 01/18/2023 12:38 PM EST Vicky Borges Nikki NESBITT LAB BLOOD ORDERABLES LABORATORY [facility] [address] [place] [address] * COMPREHENSIVE METABOLIC PANEL (01/18/2023 12:38 PM [...] 10.2 mg/dL 01/19/2023 2:02 AM EST LABORATORY [facility] Protein 7.2 6.0 - 8.3 g/dL 01/19/2023 2:02 AM EST LABORATORY [facility] ALT 44 10 - 50 U/L 01/19/2023 2:02 AM EST LABORATORY [facility] Blood Venous blood specimen / Unknown Venipuncture / Unknown 01/18/2023 12:38 PM EST 01/18/2023 12:38 PM EST Vicky Jordan DO LAB BLOOD ORDERABLES LABORATORY [facility] [address] [place] [address] * LIPID PANEL WITH DIRECT LDL IF TG IS HIGH (01/18/2023 12:38 PM EST) Triglycerides 87 <=174 mg/dL 01/19/2023 2:02 AM EST LABORATORY [facility] Comment: Triglyceride Reference Ranges (mg/dL): <150 Acceptable 150-174 Borderline high 175-499 High >=500 Very high Cholesterol 166 <200 mg/dL 01/19/2023 2:02 AM EST LABORATORY [facility] Comment: Total Cholesterol Reference Ranges (mg/dL): <200 Desirable 200-239 Borderline high >=240 High HDL Cholesterol 53 >39 mg/dL 2:02 AM EST LABORATORY [facility] Comment: HDL Cholesterol Reference Ranges (mg/dL): >=60 High (Desirable) <50 Low (Undesirable) For Females <40 Low (Undesirable) For Males Non-HDL Cholesterol 113 <=159 mg/dL 01/19/2023 2:02 AM EST LABORATORY [facility] Comment: Non-HDL Cholesterol Reference Range (mg/dL): <100 Target level for high risk ASCVD patient <130 Optimal for general population 130-159 Near optimal for general population 160-189 Borderline High 190-219 High >=220 Very High LDL Cholesterol 96 <=129 mg/dL 01/19/2023 2:02 AM EST LABORATORY [facility] Comment: LDL Cholesterol Reference Ranges (mg/dL): <70 Target level for high risk ASCVD patient <100 Optimal for general population 100-129 Near optimal for general population 130-159 Borderline high 160-189 High >=190 Very high Blood Venous blood specimen / Unknown Venipuncture / Unknown 01/18/2023 12:38 PM EST 01/18/2023 12:38 PM EST Vicky Jordan DO LAB BLOOD ORDERABLES LABORATORY [facility] [address] [place] [address] * EKG (01/18/2023 12:19 PM EST) 01/18/2023 12:1 9 PM EST Narrative Procedure Note Javier Crespo DO - 01/18/2023 12:19 PM EST REASON FOR STUDY: shortness of breath, MCCANN, chest pain CONCLUSIONS: Sinus rhythm with short AK High QRS voltage may be normal variant or due to lve Borderline ECG No previous ECGs available Ventricular Rate: 67 Atrial Rate: 67 AK Interval: 144 QRS Duration: 84 QT/QTc: 404/426 ms P-R-T Colbert: 16 : 4 : 24 degrees Vicky Jordan DO EKG Performing Organization Address [facility] Co de Phone Number [facility] CARD[facility] documented in this encounter Visit Diagnoses [...] abnormality documented in this encounter Care Teams Rice Farmworker Relationship Specialty Start Date End Date Vicky Jordan DO [address] [place] [address] PCP - General Family Medicine 01/22/23 documented as of this encounter
[2023-02-01] MEDS ORDERED: ACETAMINOPHEN 1,000 MG/100 ML VIAL IV STA (21:48)
[2023-02-01 22:06] LABS: Basophils # (auto) 0.06 K/uL (0.00-0.20); Basophils % (auto) 0.6 %; Eosinophils # (auto) 0.25 K/uL (0.00-0.50); Eosinophils % (auto) 2.6 %; Hematocrit (blood only) 41.5 % (42.0-52.0); Hemoglobin 14.8 g/dl (14.0-18.0); Immature Granulocytes # (auto) 0.04 K/uL (0.01-0.20); Immature Granulocytes % (auto) 0.4 %; Lymphocytes # (auto) 2.01 K/uL (1.20-3.40); Lymphocytes % (auto) 21.2 %; Mean Corpuscular Hemoglobin 33.9 pg (25.0-34.0); Mean Corpuscular Hgb Conc 35.7 g/dL (32.0-36.0); Mean Corpuscular Volume 95.2 fL (80.0-100.0); Mean Platelet Volume 10.9 fL (9.4-12.4); Monocytes # (auto) 0.79 K/uL (0.11-0.59); Monocytes % (auto) 8.3 %; Neutrophils # (auto) 6.34 K/uL (1.40-6.50); Neutrophils % (auto) 66.9 %; Platelet Count 197 K/uL (130-400); RDW Coefficient of Variation 13.2 % (11.5-14.5); RDW Standard Deviation 46.5 fL (36.4-46.3); Red Blood Count 4.36 M/uL (4.70-6.10); White Blood Count 9.49 K/ul (4.8-10.8)
--- NOTE | 2023-02-01 22:09 | Emergency Department Note ---
History of Present Illness General Chief complaint: Arm Pain Stated complaint: SEVERE RT ARM PAIN, Time Seen by Provider: 02/01/23 21:38 History of Present Illness Maximum Pain Intensity: 10 This 63-year-old gentleman who had a cardiac cath from the right radial artery on 26 January presents ER for increased pain and swelling and blue discoloration and bruising to the right arm. Patient states that is taken 3 times for the cardiac catheterization. Patient states since then the swelling is gotten worse along with the bruising and there is a blue discoloration to the wrist area. Patient did not try to wash the area off. Patient denies chest pain, dyspnea, numbness, tingling, weakness. I easily washed off the blue discoloration with an alcohol wipe and showed the patient. Home Medications Medication Instructions Recorded Confirmed Type aspirin 81 mg chewable tablet 81 mg PO DAILY 01/26/23 01/26/23 History atorvastatin 40 mg tablet 40 mg PO DAILY 01/26/23 01/26/23 History metoprolol succinate 25 mg 25 mg PO DAILY 01/26/23 01/26/23 History tablet,extended release 24 hr (Toprol XL) nitroglycerin 0.4 mg sublingual 0.4 mg sublingual DIRECTED PRN 01/26/23 01/26/23 History tablet (Nitrostat) Chest Pain pantoprazole 20 mg tablet,delayed 20 mg PO BID 01/26/23 01/26/23 History release (Protonix) Allergies Allergy/AdvReac Type Severity Reaction Status Date / Time No Known Allergies Allergy Unverified 01/26/23 09:07 Past Med/Surg History Medical History Prediabetes Current smoker Alcohol abuse Paroxysmal atrial fibrillation Obesity Mitral regurgitation Atrial fibrillation with RVR No pertinent past medical history No pertinent family history Surgical History No pertinent past surgical history Social History Smoking Status: Former smoker Cigarettes Per Day: 20; Second Hand Exposure: Yes; Do You Dip or Chew Tobacco: No; Hx Alcohol Use: Yes Alcohol type: beer Alcohol Intake Frequency Comment: 6 beers/day Hx Substance Use: No Preferred Language: Japanese Communication Ability: Effective Direct Care Specialist Required: No Beliefs That Will Affect Care: None Current Living Situation: Spouse Feels Safe at Home: Yes Assistive Devices: None Review of Systems A total of 10 systems reviewed and were otherwise negative Physical Exam Vital Signs Vital Signs - 24 hr 02/01/23 21:31 02/01/23 21:44 02/01/23 23:28 Temperature 36.8 C Temperature Source Temporal Artery Scan Pulse Rate 58 L 58 L Pulse Rate [Right Finger] 53 L Pulse Rhythm Regular Pulse Rhythm [Right Finger] Regular Pulse Strength Normal Pulse Strength [Right Finger] Normal Respiratory Rate 18 16 Respiratory Effort / Characteristics Non-Labored Spontaneous Non-Labored Spontaneous Respiratory Depth Normal Normal Respiratory Pattern Regular Regular Blood Pressure 160/62 H Blood Pressure [Left Arm] 116/71 Blood Pressure Mean 94 Blood Pressure Mean [Left Arm] 86 Blood Pressure Position Sitting Pulse Oximetry 97 98 Oxygen Delivery Method Room Air Room Air Sepsis Recent Fever Within 48 Hours No Sepsis New/Unexplained Change in Mental Status N/A Sepsis Action Taken by Nursing No Action Required VITALS: Vitals are noted on the nurse's note and reviewed by myself. Vital signs stable. GENERAL: Pleasant male with present, in no acute distress, nondiaphoretic, well-developed well-nourished. SKIN: Capillary reflex less than 2 seconds. HEENT: Normocephalic. PERRLA. EOMI. Nares patent. Mucous membranes moist. Neck is supple without nuchal rigidity. HEART: Regular rate and rhythm without murmurs gallops or rubs. LUNGS: Clear to auscultation bilaterally without wheezes, rales or rhonchi. No retractions or accessory muscle use. ABDOMEN: Positive bowel sounds x 4. Normal tympanic percussion. Soft, nontender, without masses or organomegaly. Reyes sign negative. No guarding or rebound tenderness. MUSCULOSKELETAL: No gross musculoskeletal defects. Right forearm with bruising present and mild edema. Radial pulse +2 equal and present bilaterally strong and bounding. Blue discoloration was easily washed off with alcohol wipe. No signs of her arterial emboli. Mild redness around the catheterization site. No palpable abscess. No palpable pseudoaneurysm. Fingers are well-perfused. Hand and wrist and fingers full range of motion with no deformity. NEURO: Patient was alert and oriented to person place and time. Normal sensation to light and sharp touch. No focal neurological deficits. Course Administered Medications Discontinued Medications Acetaminophen (Ofirmev) 1,000 mg in 100 mls @ 400 mls/hr IV NOW STA Stop: 02/01/23 22:02 Last Infusion: 02/01/23 22:18 Dose: Infused Documented By: Admin: 02/01/23 21:55 Dose: 400 mls/hr Documented By: CHAZ Morphine Sulfate (Morphine Sulfate 4 Mg/Ml 1 Ml Carp\Vial) 4 mg IV NOW STA Stop: 02/01/23 23:46 Last Admin: 02/01/23 23:52 Dose: 4 mg Documented By: ISIDRA Medical Decision Making Medical Records Attestation: I reviewed the patient's medical records. Home Medications Current Medication List: was personally reviewed by me Laboratory Data Attestation: I reviewed the patient's lab results. 02/01/23 21:45 02/01/23 21:45 Lab Results 02/01/23 Range/Units 21:45 WBC 9.49 (4.8-10.8) K/ul RBC 4.36 L (4.70-6.10) M/uL Hgb 14.8 (14.0-18.0) g/dl Hct 41.5 L (42.0-52.0) % MCV 95.2 (80.0-100.0) fL MCH 33.9 (25.0-34.0) pg MCHC 35.7 (32.0-36.0) g/dL RDW Std Deviation 46.5 H (36.4-46.3) fL RDW Coeff of Yaima 13.2 (11.5-14.5) % Plt Count 197 (130-400) K/uL MPV 10.9 (9.4-12.4) fL Immature Gran % (Auto) 0.4 % Neut % (Auto) 66.9 % Lymph % (Auto) 21.2 % Swain % (Auto) 8.3 % Eos % (Auto) 2.6 % Baso % (Auto) 0.6 % Neut # (Auto) 6.34 (1.40-6.50) K/uL Lymph # (Auto) 2.01 (1.20-3.40) K/uL Swain # (Auto) 0.79 H (0.11-0.59) K/uL Eos # (Auto) 0.25 (0.00-0.50) K/uL Baso # (Auto) 0.06 (0.00-0.20) K/uL Immature Gran # (Auto) 0.04 (0.01-0.20) K/uL PT 11.2 (9.0-12.0) Seconds INR 1.0 (0.9-1.1) APTT 27.3 (21.0-31.0) Seconds PTT Ratio 1.0 Sodium 137 (136-145) mmol/L Potassium 4.0 (3.5-5.1) mmol/L Chloride 104 (98-107) mmol/L Carbon Dioxide 26 (21-32) mmol/L Anion Gap 7 (3-11) BUN 21 (6-23) mg/dl Creatinine 0.90 (0.6-1.4) mg/dl Est Cr Clr Drug Dosing 101.5 ml/min Est GFR ( Amer) 103.5 ml/min Est GFR (Non-Af Amer) 89.3 ml/min BUN/Creatinine Ratio 23.3 H (10-20) Glucose 130 H (70-99(Fasting)) mg/dl Calcium 9.4 (8.6-10.3) mg/dl Total Bilirubin 0.4 (0.2-1.0) mg/dl AST 19 (13-39) U/L ALT 45 (7-52) U/L Alkaline Phosphatase 67 (34-104) U/L Total Protein 7.4 (6.0-8.3) gm/dl Albumin 4.3 (3.4-5.0) gm/dl Globulin 3.1 (2.5-4.0) gm/dl Albumin/Globulin Ratio 1.4 (0.9-2) Imaging Data Attestation: I personally reviewed and interpreted this imaging study as follows: Radiologist's Impression: Venous Doppler Study 02/01/23 21:48 Exam(s): US VENOUS RIGHT UPPER EXTREMITY EXAM: US Duplex Right Upper Extremity Veins CLINICAL HISTORY: Reason for exam: Eval for DVT. TECHNIQUE: Real-time duplex ultrasound scan of the right upper extremity veins integrating B-mode two-dimensional vascular structure, Doppler spectral analysis, color flow Doppler imaging and compression. COMPARISON: No relevant prior studies available. FINDINGS: Deep veins: Unremarkable. No DVT in the internal jugular, subclavian, axillary, or brachial veins. The veins demonstrate normal color flow, are normally compressible, with normal phasic flow and/or augmentation response. Superficial veins: Unremarkable. No thrombus in the visualized basilic and cephalic veins. Soft tissues: Mild edema in the soft tissues over the right wrist surrounding but appears to be a musculotendinous junction. Consider tenosynovitis or cellulitis. Lymph nodes: There is a 6 mm short axis diameter lymph node in the region of interest labeled right wrist. IMPRESSION: 1. Mild edema in the soft tissues over the right wrist surrounding but appears to be a musculotendinous junction. Consider tenosynovitis or cellulitis. 2. There is a 6 mm short axis diameter lymph node in the region of interest labeled right wrist. 3. No venous thrombosis is seen within the right upper extremity. Electronically signed by: Elijah Armenta MD 02/02/23 00:06 AM MDM Narrative Prior records reviewed and summarized above. Triage Nursing notes reviewed. Additional history obtained from the family. The patient's history was concerning for swelling and pain in the arm Differential diagnosis: Etiologies such as postprocedural bruising, pseudoaneurysm, DVT, musculoskeletal, infection, joint effusion, trauma, lymphedema, idiopathic, CHF, as well as others were entertained.. Physical examination: The physical examination revealed no signs of infection. Neurovascularly intact. ER treatment provided: An order was placed for continuous cardiac monitoring. The monitor shows a rate of 50-80 with a sinus rhythm per my interpretation. Tylenol was ordered Rocephin and morphine were ordered On reassessment the patient felt better. Diagnostics interpreted by me: The labs Independently Interpreted by myself revealed stable H&H, no worrisome leukocytosis, mild hyperglycemia without DKA Imaging studies: Ultrasound was independently reviewed by myself and read by radiology as above. No DVT. Fluid present. Possible cellulitis. Consultation: A consultation was placed with the hospitalist. The case was discussed and diagnostics were reviewed. The patient was evaluated in the ER for further treatment. This appears to be consistent with bruising to the right forearm most likely from recent procedure and possible secondary developing cellulitis. No DVT. Patient was neurovascularly and neurologically intact. The blue discoloration most likely was the antiseptic used for the procedure. This easily wiped off with an alcohol wipe. No signs of arterial emboli. Medicine was consulted and the case was discussed. Patient be admitted to the medical service for further evaluation and treatment. Patient was started on Rocephin. By the evaluation outlined above emergent etiologies such as DVT, septic joint, CHF, as well as others were deemed relatively unlikely. The pt informed about the findings as listed above. All questions were answered and pleased with the treatment. The chart was completed utilizing [employer] Speech voice recognition software. Grammatical errors, random word insertions, pronoun errors, and incomplete sentences are an occassional consequence of this system due to software limitations, ambient noise, and hardware issues. Any formal questions or concerns about the content, text, or information contained within the body of this dictation should be directly addressed to the physician office services assistant for clarification. Impression & Plan Hematoma of right forearm, Acute hyperglycemia, Cellulitis of arm, right Discharge Plan Visit Data Chief Complaint: Arm Pain Stated Complaint: SEVERE RT ARM PAIN, ED Provider: Carlos Eduardo Draper ED Midlevel Provider: Jasmin Jj Discharge Problem: Hematoma of right forearm, Acute hyperglycemia, Cellulitis of arm, right Patient Disposition: Being Evaluated by Hospitalist Condition: Good Discharge Instructions Activity Restrictions/Additional Instructions: Forms Stand Alone Forms: Important Visit Information Prescriptions Prescriptions: No Action pantoprazole [Protonix] 20 mg Tablet,Delayed Release (Dr/Ec) 20 mg PO BID aspirin 81 mg Tablet,Chewable 81 mg PO DAILY atorvastatin 40 mg Tablet 40 mg PO DAILY nitroglycerin [Nitrostat] 0.4 mg Tablet, Sublingual 0.4 mg sublingual DIRECTED PRN (Reason: Chest Pain) metoprolol succinate [Toprol XL] 25 mg Tablet Extended Release 24 Hr 25 mg PO DAILY Referrals Referrals: Vicky Jordan DO [Primary Care Provider] -
[2023-02-01 22:24] LABS: Albumin Globulin Ratio 1.4 (0.9-2); Albumin Level 4.3 gm/dl (3.4-5.0); BUN Creatinine Ratio 23.3 (10-20); Bilirubin,Total 0.4 mg/dl (0.2-1.0); Calcium 9.4 mg/dl (8.6-10.3); Creatinine Clr Calc Pharmacy 101.5 ml/min; Est GFR (African American) 103.5 ml/min; Est GFR (Non-African American) 89.3 ml/min; Globulin 3.1 gm/dl (2.5-4.0); Total Protein 7.4 gm/dl (6.0-8.3)
[2023-02-01] MEDS ORDERED: MoRPHine SULFATE 4 MG/ML 1 ML CARP\\VIAL IV STA (23:45)
[2023-02-01 23:54] LABS: Partial Thromboplastin Time 27.3 Seconds (21.0-31.0); Prothrombin Time 11.2 Seconds (9.0-12.0)
--- NOTE | 2023-02-02 00:06 | Ultrasound Report ---
Exam(s): US VENOUS RIGHT UPPER EXTREMITY EXAM: US Duplex Right Upper Extremity Veins CLINICAL HISTORY: Reason for exam: Eval for DVT. TECHNIQUE: Real-time duplex ultrasound scan of the right upper extremity veins integrating B-mode two-dimensional vascular structure, Doppler spectral analysis, color flow Doppler imaging and compression. COMPARISON: No relevant prior studies available. FINDINGS: Deep veins: Unremarkable. No DVT in the internal jugular, subclavian, axillary, or brachial veins. The veins demonstrate normal color flow, are normally compressible, with normal phasic flow and/or augmentation response. Superficial veins: Unremarkable. No thrombus in the visualized basilic and cephalic veins. Soft tissues: Mild edema in the soft tissues over the right wrist surrounding but appears to be a musculotendinous junction. Consider tenosynovitis or cellulitis. Lymph nodes: There is a 6 mm short axis diameter lymph node in the region of interest labeled right wrist. IMPRESSION: 1. Mild edema in the soft tissues over the right wrist surrounding but appears to be a musculotendinous junction. Consider tenosynovitis or cellulitis. 2. There is a 6 mm short axis diameter lymph node in the region of interest labeled right wrist. 3. No venous thrombosis is seen within the right upper extremity. Electronically signed by: Elijah Armenta MD 02/02/23 00:06 AM
[2023-02-02 00:29] LABS: Magnesium 1.7 mg/dl (1.7-2.4)
[2023-02-02] MEDS ORDERED: MoRPHine SULFATE 4 MG/ML 1 ML CARP\\VIAL IV STA (00:29)
[2023-02-02] MEDS ORDERED: MoRPHine SULFATE 2 MG/ML CARP IV STA ×2 (03:24→18:08)
--- NOTE | 2023-02-02 03:39 | History & Physical Report ---
Date of Service February 02, 2023 Assessment & Plan (1) Cellulitis of arm, right: Plan: 62-year-old male with past med significant for prediabetes, CAD s/p stent, paroxysmal atrial fibrillation, GERD comes because of severe pain in the right wrist and painful movements of the right hand on which recently had a cardiac cath done. Right wrist pain Possible tenosynovitis or possible cellulitis of the right arm per ultrasound Empiric Rocephin Pain control Ortho consult History of CAD s/p stent Continue aspirin, Plavix, statin, and beta-jodi History of A-fib On Eliquis and Coreg Hyperlipidemia On statin Hypertension On Coreg, lisinopril and amlodipine GERD Protonix DVT prophylaxis On Eliquis Disposition Med/telemetry Full code History of Present Illness Chief Complaint: Right wrist and hand pain Primary Care Provider: Vicky Jordan DO 62-year-old male with past med history significant for prediabetes, CAD s/p stent, paroxysmal atrial fibrillation, GERD comes because of severe pain in the right wrist and painful movements of the right hand on which recently had a cardiac cath x 2 done. As patient having chest pain with exertion and relieved by rest for a month is s/p cardiac cath at [facility] on January 27, 2023 which showed 95% stenosis of the ostial LAD as this was a complex lesion patient was transferred to [facility] for possible PCI versus CABG. As per discharge summary at [facility] patient preferred PCI. Patient underwent left heart cath with right radial access and s/p PCI to ostial LAD. Patient was deemed stable for discharge and discharged on aspirin to be continued for 1 week along with Plavix and Eliquis. The Plavix and Eliquis should be continued for at least 1 year. But patient says since he had a cardiac cath twice in the same right radial region is in a lot of pain there. Some erythema is noted.Pain with movement of the right hand which prompted him to come to the ER. Denies any fevers. No other complaints. Denies any chest pain or shortness of breath. No nausea. No cough. No headache. No abdominal pain. Normal bowel and bladder movements. No blood in the stools. Hemodynamically stable. Past medical history. As mentioned above Past surgical history. Cardiac cath s/p and placement Social history. . Quit smoking in 2022 Alcohol. Drinks 6-7 beers nightly Family history. Father had prostate cancer. Diabetes. Hypertension. Mother had diabetes. Hypertension. Sister has hypertension. Breast cancer. Father had stroke. Allergies Allergy/AdvReac Type Severity Reaction Status Date / Time No Known Allergies Allergy Unverified 01/26/23 09:07 Home Medications Medication Instructions Recorded Confirmed Type amlodipine 5 mg tablet 5 mg PO DAILY 02/02/23 02/02/23 History apixaban 5 mg tablet (Eliquis) 5 mg PO BID 02/02/23 02/02/23 History atorvastatin 80 mg tablet 80 mg PO DAILY 02/02/23 02/02/23 History carvedilol 6.25 mg tablet 6.25 mg PO BID 02/02/23 02/02/23 History clopidogrel 75 mg tablet 75 mg PO DAILY 02/02/23 02/02/23 History lisinopril 5 mg tablet 5 mg PO DAILY 02/02/23 02/02/23 History nitroglycerin 0.4 mg sublingual 0.4 mg sublingual UD PRN Chest Pain 02/02/23 02/02/23 History tablet pantoprazole 20 mg tablet,delayed 20 mg PO BID 02/02/23 02/02/23 History release Past Med/Surg History Medical History Prediabetes Current smoker Alcohol abuse Paroxysmal atrial fibrillation Obesity Mitral regurgitation Atrial fibrillation with RVR No pertinent past medical history No pertinent family history Surgical History No pertinent past surgical history Social History Smoking Status: Former smoker Cigarettes Per Day: 20; Second Hand Exposure: Yes; Do You Dip or Chew Tobacco: No; Hx Alcohol Use: Yes Alcohol type: beer Alcohol Intake Frequency Comment: 6 beers/day Hx Substance Use: No Preferred Language: Stateless Communication Ability: Effective 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 ENT- oropharynx clear Neck- supple, no JVD. Lungs- clear to auscultation no wheezing or crackles Heart- regular rhythm; no murmur, no gallop. Abdomen- normal bowel sounds, soft, nontender, no distension Extremities- no pretibial edema, right wrist region erythematous and right hand painful movements Neuro- alert, oriented x 3; PERRL, no facial palsy; no dysarthria; moves extremities. Results & Data Results & Data Vital Signs (Past 12 Hours) Vital Signs Temp Pulse Pulse Resp BP BP Pulse Ox 02/02/23 01:41 61 02/02/23 01:00 59 L 16 130/72 98 02/01/23 23:28 53 L 16 116/71 98 02/01/23 21:44 58 L 02/01/23 21:31 36.8 C 58 L 18 160/62 H 97 O2 Del Method 02/02/23 01:41 02/02/23 01:00 Room Air 02/01/23 23:28 Room Air 02/01/23 21:44 02/01/23 21:31 Room Air Diagnostic Findings Laboratory Results WBC 9.49 K/ul (4.8-10.8) 02/01/23 21:45 RBC 4.36 M/uL (4.70-6.10) L 02/01/23 21:45 Hgb 14.8 g/dl (14.0-18.0) 02/01/23 21:45 Hct 41.5 % (42.0-52.0) L 02/01/23 21:45 MCV 95.2 fL (80.0-100.0) 02/01/23 21:45 MCH 33.9 pg (25.0-34.0) 02/01/23 21:45 MCHC 35.7 g/dL (32.0-36.0) 02/01/23 21:45 RDW Std Deviation 46.5 fL (36.4-46.3) H 02/01/23 21:45 RDW Coeff of Yaima 13.2 % (11.5-14.5) 02/01/23 21:45 Plt Count 197 K/uL (130-400) 02/01/23 21:45 MPV 10.9 fL (9.4-12.4) 02/01/23 21:45 Immature Gran % (Auto) 0.4 % 02/01/23 21:45 Neut % (Auto) 66.9 % 02/01/23 21:45 Lymph % (Auto) 21.2 % 02/01/23 21:45 Mercer % (Auto) 8.3 % 02/01/23 21:45 Eos % (Auto) 2.6 % 02/01/23 21:45 Baso % (Auto) 0.6 % 02/01/23 21:45 Neut # (Auto) 6.34 K/uL (1.40-6.50) 02/01/23 21:45 Lymph # (Auto) 2.01 K/uL (1.20-3.40) 02/01/23 21:45 Mercer # (Auto) 0.79 K/uL (0.11-0.59) H 02/01/23 21:45 Eos # (Auto) 0.25 K/uL (0.00-0.50) 02/01/23 21:45 Baso # (Auto) 0.06 K/uL (0.00-0.20) 02/01/23 21:45 Immature Gran # (Auto) 0.04 K/uL (0.01-0.20) 02/01/23 21:45 PT 11.2 Seconds (9.0-12.0) 02/01/23 21:45 INR 1.0 (0.9-1.1) 02/01/23 21:45 APTT 27.3 Seconds (21.0-31.0) 02/01/23 21:45 PTT Ratio 1.0 02/01/23 21:45 Sodium 137 mmol/L (136-145) 02/01/23 21:45 Potassium 4.0 mmol/L (3.5-5.1) 02/01/23 21:45 Chloride 104 mmol/L (98-107) 02/01/23 21:45 Carbon Dioxide 26 mmol/L (21-32) 02/01/23 21:45 Anion Gap 7 (3-11) 02/01/23 21:45 BUN 21 mg/dl (6-23) 02/01/23 21:45 Creatinine 0.90 mg/dl (0.6-1.4) 02/01/23 21:45 Est Cr Clr Drug Dosing 101.5 ml/min 02/01/23 21:45 Est GFR ( Amer) 103.5 ml/min 02/01/23 21:45 Est GFR (Non-Af Amer) 89.3 ml/min 02/01/23 21:45 BUN/Creatinine Ratio 23.3 (10-20) H 02/01/23 21:45 Glucose 130 mg/dl (70-99(Fasting)) H 02/01/23 21:45 Calcium 9.4 mg/dl (8.6-10.3) 02/01/23 21:45 Magnesium 1.7 mg/dl (1.7-2.4) 02/01/23 21:45 Total Bilirubin 0.4 mg/dl (0.2-1.0) 02/01/23 21:45 AST 19 U/L (13-39) 02/01/23 21:45 ALT 45 U/L (7-52) 02/01/23 21:45 Alkaline Phosphatase 67 U/L (34-104) 02/01/23 21:45 Total Protein 7.4 gm/dl (6.0-8.3) 02/01/23 21:45 Albumin 4.3 gm/dl (3.4-5.0) 02/01/23 21:45 Globulin 3.1 gm/dl (2.5-4.0) 02/01/23 21:45 Albumin/Globulin Ratio 1.4 (0.9-2) 02/01/23 21:45 Impressions Venous Doppler Study 02/01/23 21:48 Exam(s): US VENOUS RIGHT UPPER EXTREMITY EXAM: US Duplex Right Upper Extremity Veins CLINICAL HISTORY: Reason for exam: Eval for DVT. TECHNIQUE: Real-time duplex ultrasound scan of the right upper extremity veins integrating B-mode two-dimensional vascular structure, Doppler spectral analysis, color flow Doppler imaging and compression. COMPARISON: No relevant prior studies available. FINDINGS: Deep veins: Unremarkable. No DVT in the internal jugular, subclavian, axillary, or brachial veins. The veins demonstrate normal color flow, are normally compressible, with normal phasic flow and/or augmentation response. Superficial veins: Unremarkable. No thrombus in the visualized basilic and cephalic veins. Soft tissues: Mild edema in the soft tissues over the right wrist surrounding but appears to be a musculotendinous junction. Consider tenosynovitis or cellulitis. Lymph nodes: There is a 6 mm short axis diameter lymph node in the region of interest labeled right wrist. IMPRESSION: 1. Mild edema in the soft tissues over the right wrist surrounding but appears to be a musculotendinous junction. Consider tenosynovitis or cellulitis. 2. There is a 6 mm short axis diameter lymph node in the region of interest labeled right wrist. 3. No venous thrombosis is seen within the right upper extremity. Electronically signed by: Elijah Armenta MD 02/02/23 00:06 AM ECG Additional Comments: ECG. Sinus bradycardia with occasional PVCs at a rate of 56. Code Status & VTE Plan VTE Prophylaxis Plan VTE Prophylaxis will be ordered: Yes
[2023-02-02] MEDS ORDERED: ACETAMINOPHEN 325 MG TAB PO PRN (04:15)
[2023-02-02] MEDS ORDERED: POLYETHYLENE (MIRALAX) 17 GM PACK PO PRN (04:15)
[2023-02-02] MEDS ORDERED: NITROGLYCERIN SL 0.4 MG/TAB TAB SL PRN (04:15)
[2023-02-02] MEDS ORDERED: cefTRIAXone SODIUM 2,000 MG in DEXTROSE 5 % MINI-B 50 ML IV SCH (05:00)
[2023-02-02] MEDS: MoRPHine SULFATE 4 MG/ML 1 ML CARP\\VIAL IV PRN ×3 (05:13→16:13)
[2023-02-02 08:34] LABS: Basophils % (auto) 0.4 %; Eosinophils % (auto) 1.2 %; Hematocrit (blood only) 41.5 % (42.0-52.0); Hemoglobin 14.2 g/dl (14.0-18.0); Immature Granulocytes % (auto) 0.7 %; Lymphocytes # (auto) 1.26 K/uL (1.20-3.40); Lymphocytes % (auto) 12.6 %; Mean Corpuscular Hemoglobin 33.3 pg (25.0-34.0); Mean Corpuscular Hgb Conc 34.2 g/dL (32.0-36.0); Mean Corpuscular Volume 97.2 fL (80.0-100.0); Mean Platelet Volume 11.1 fL (9.4-12.4); Monocytes % (auto) 7.8 %; Neutrophils # (auto) 7.76 K/uL (1.40-6.50); Neutrophils % (auto) 77.3 %; Platelet Count 173 K/uL (130-400); RDW Coefficient of Variation 13.4 % (11.5-14.5); RDW Standard Deviation 47.7 fL (36.4-46.3); Red Blood Count 4.27 M/uL (4.70-6.10); White Blood Count 10.03 K/ul (4.8-10.8)
[2023-02-02 08:35] LABS: Basophils # (auto) 0.04 K/uL (0.00-0.20); Eosinophils # (auto) 0.12 K/uL (0.00-0.50); Immature Granulocytes # (auto) 0.07 K/uL (0.01-0.20); Monocytes # (auto) 0.78 K/uL (0.11-0.59)
[2023-02-02 08:50] LABS: BUN Creatinine Ratio 27.4 (10-20); Calcium 9.4 mg/dl (8.6-10.3); Creatinine Clr Calc Pharmacy 125.2 ml/min; Est GFR (African American) 112.8 ml/min; Est GFR (Non-African American) 97.3 ml/min; Magnesium 1.8 mg/dl (1.7-2.4); Potassium 4.4 mmol/L (3.5-5.1)
[2023-02-02] MEDS ORDERED: carvediloL 6.25 MG TAB PO SCH (09:00)
[2023-02-02] MEDS ORDERED: ATORVASTATIN 40 MG TAB PO SCH (09:00)
[2023-02-02] MEDS ORDERED: CLOPIDOGREL BISULFATE 75 MG TAB PO SCH (09:00)
[2023-02-02] MEDS ORDERED: amLODIPine BESYLATE 5 MG TAB PO SCH (09:00)
[2023-02-02] MEDS ORDERED: PANTOprazole 40 MG TAB PO SCH (09:00)
[2023-02-02] MEDS ORDERED: APIXABAN 5 MG TABLET PO SCH (09:00)
[2023-02-02] MEDS ORDERED: lisinopril 5 MG TAB PO SCH (09:00)
[2023-02-02] MEDS ORDERED: ASPIRIN 81 MG CHEW PO SCH (12:45)
--- NOTE | 2023-02-02 13:23 | Cardiology Consultation ---
Date of Consultation February 02, 2023 Assessment & Plan (1) Right arm pain: (2) Hematoma of right forearm: 63-year-old male 1. Acute pain and swelling of the right hand, wrist, and distal forearm in the setting of recent cardiac catheterization via right radial approach x2, the most recent of which was 4 days ago on 01/29/2023 2. Coronary heart disease with complex PCI to the ostial LAD and circumflex coronary arteries 01/29/2023 3. History of a single past captured episode of paroxysmal atrial fibrillation, 2020, currently in sinus rhythm, sinus bradycardia on telemetry without known clinical recurrence of atrial fibrillation -A venous duplex study was performed overnight last night with noted findings of mild edema in the soft tissues over the right wrist with findings suggestive of possible tenosynovitis or cellulitis. No venous thrombosis seen within the right upper extremity. -Of note, the patient's symptoms started approximately 24 hours after his initial cardiac catheterization, although there may be a component of cellulitis, the timing suggests possible other etiology. -I have requested a stat arterial duplex of the right upper extremity to evaluate for arterial insufficiency as patient may have early symptoms of a compartment syndrome. -I discussed the patient's clinical presentation and the goals of the study with the gas technician performing the study, as well as radiology in order to expedite the evaluation. -For now, Eliquis has been discontinued. He did have a dose this morning at 8:24 AM. Given the fact that he is in sinus rhythm, benefits of stopping his anticoagulant outweigh the potential risks. -He does however have a recent history of a very complex ostial LAD/circumflex intervention and would recommend uninterrupted dual antiplatelet therapy. -Further recommendations will be forthcoming. Case discussed with Dr Galindo for the purpose of coordination of care. History of Present Illness Attending Physician: Tres Galindo MD History of Present Illness Mr Mercer is a 63-year-old male seen in cardiology consultation per the request of Dr. Galindo for the evaluation of right forearm, wrist, and hand swelling and pain with having recently had undergone cardiac catheterization via the right radial artery approach. The patient had recently been seen in outpatient cardiology clinic on 01/23/2023 with symptoms concerning for exertional angina. Diagnostic cardiac catheterization was subsequently performed by Dr Javier Crespo of our practice at [facility] on 01/26/2023 revealing a culprit high-grade ostial left anterior descending coronary stenosis of 90%, also 90% proximal LAD disease and diffuse disease of the mid LAD in the range of 20%. He was transferred to [facility] for further evaluation to discuss single-vessel CABG or complex PCI. A second cardiac catheterization was therefore performed, again via the right radial access site 4 days ago on 01/29/2023 with patient having undergone complex percutaneous coronary intervention. The procedure describes a 95% ostial LAD stenosis. When the proximal LAD stent was placed there was plaque shift into the circumflex causing ostial circumflex stenosis. The patient then had a B stent technique with stent to the ostial circumflex as well as the LAD receiving a total of 2 drug-eluting stents, one to the ostial LAD and on to the circumflex. He was discharged the next day, 01/30/2023 . At time of discharge he was to be on aspirin, clopidogrel, and Eliquis. Eliquis was initiated at time of discharge due to his history of a single epi sode of atrial fibrillation that took place in 2020 without known clinical recurrence. The tentative plan was for him to be on aspirin for a week at which time the aspirin was to be discontinued in favor of long-term treatment with clopidogrel plus Eliquis. The patient states that starting on his way home the day of discharge he was having significant pain of his right wrist that has worsened to include his right forearm, wrist, and his hand. He presented to the emergency department overnight last night for evaluation. At the time my assessment he complains of ongoing pain, diffuse hand and wrist swelling. Allergies Allergy/AdvReac Type Severity Reaction Status Date / Time No Known Allergies Allergy Unverified 01/26/23 09:07 Home Medications Medication Instructions Recorded Confirmed Type amlodipine 5 mg tablet 5 mg PO DAILY 02/02/23 02/02/23 History apixaban 5 mg tablet (Eliquis) 5 mg PO BID 02/02/23 02/02/23 History atorvastatin 80 mg tablet 80 mg PO DAILY 02/02/23 02/02/23 History carvedilol 6.25 mg tablet 6.25 mg PO BID 02/02/23 02/02/23 History clopidogrel 75 mg tablet 75 mg PO DAILY 02/02/23 02/02/23 History lisinopril 5 mg tablet 5 mg PO DAILY 02/02/23 02/02/23 History nitroglycerin 0.4 mg sublingual 0.4 mg sublingual UD PRN Chest Pain 02/02/23 02/02/23 History tablet pantoprazole 20 mg tablet,delayed 20 mg PO BID 02/02/23 02/02/23 History release Patient History Medical History Prediabetes Current smoker Alcohol abuse Paroxysmal atrial fibrillation Obesity Mitral regurgitation Atrial fibrillation with RVR No pertinent past medical history No pertinent family history Surgical History No pertinent past surgical history Social History Smoking Status: Former smoker Cigarettes Per Day: 20; Second Hand Exposure: Yes; Do You Dip or Chew Tobacco: No; Hx Alcohol Use: Yes Alcohol type: beer Alcohol Intake Frequency Comment: 6 beers/day Hx Substance Use: No Preferred Language: Kyrgyz Communication Ability: Effective Weight Calculator Required: No Beliefs That Will Affect Care: None Current Living Situation: Spouse Feels Safe at Home: Yes Safety Concerns: Feels Safe At This Time Assistive Devices: None Review of Systems Review of Systems: All systems reviewed & are unremarkable except as noted in HPI & below Physical Exam Constitutional: WD/WN, vitals as above Respiratory: normal respiratory effort, lungs clear to auscultation Cardiovascular: RRR, no murmur, no edema Gastrointestinal (Abdomen): normal bowel sounds, soft, nontender, no hepatosplenomegaly Musculoskeletal: Patient with noted erythema, and swelling of his right hand compared to the left hand, with noted swelling of the distal right forearm to a mild degree, and mild ecchymosis of the medial forearm. The patient was using a cold compress at the time of my assessment. His fingers and hand were exquisitely painful to touch. Normal capillary reflux was noted. Patient notes no numbness or tingling. Neurologic: PERRL, EOMI, accommodation nl, no face palsy, no dysarthria Results & Data Vital Signs (Past 12 Hours) Vital Signs Pulse Resp BP Pulse Ox Pulse Ox O2 Del Method O2 Del Method 02/02/23 13:00 55 L 16 95 02/02/23 12:04 138/78 02/02/23 12:04 54 L 19 02/02/23 10:00 56 L 32 H 02/02/23 09:00 59 L 20 02/02/23 08:23 117/71 02/02/23 08:23 54 L 26 H 02/02/23 08:00 54 L 19 02/02/23 07:39 96 Room Air 02/02/23 07:00 107/52 L 02/02/23 07:00 50 L 20 02/02/23 06:59 49 L 02/02/23 05:22 Room Air 02/02/23 05:12 52 L 16 125/78 97 02/02/23 03:00 55 L 18 106/52 L 97 02/02/23 01:41 61
--- NOTE | 2023-02-02 14:22 | Ultrasound Report ---
US arterial duplex UE RT CLINICAL HISTORY: right hand , wrist , forearm pain. Post cardiac catheterization. COMPARISON STUDY: Right ARM venous Doppler 02/01/2023. FINDINGS: There is again noted mild edema within the soft tissues of the right wrist. There is thicke khari and mild edema surrounding a tendon within the wrist. This raises the possibility of a tendiniti s/tenosynovitis. The ulnar artery demonstrates normal waveforms and velocities. The proximal to mid r ight radial artery demonstrates normal velocities and waveforms. Focal increased peak systolic veloci ty within the distal right radius artery near the wrist measuring up to 150 cm/s. This is best seen i mage 14. This is consistent with a focal area of hemodynamically significant stenosis. However, no ev idence for arterial occlusion. IMPRESSION: 1. Focal increased peak systolic velocity within the distal right radius artery near the wrist measur ing up to 150 cm/s. This is consistent with a focal area of hemodynamically significant stenosis. How ever, no evidence for arterial occlusion. 2. There is again noted mild edema within the soft tissues of the right wrist. There is thickening an d mild edema surrounding a tendon within the wrist. This raises the possibility of a tendinitis/tenos ynovitis. ACT 112: Negative or not required by law. Electronically signed by: Christopher Eckert M.D. 02/02/2023 2:20 PM
--- NOTE | 2023-02-02 16:27 | Discharge Summary ---
Date of Service February 02, 2023 Admission HPI Per Admitting Provider 62-year-old male with past med history significant for prediabetes, CAD s/p stent, paroxysmal atrial fibrillation, GERD comes because of severe pain in the right wrist and painful movements of the right hand on which recently had a cardiac cath x 2 done. As patient having chest pain with exertion and relieved by rest for a month is s/p cardiac cath at [facility] on January 27, 2023 which showed 95% stenosis of the ostial LAD as this was a complex lesion patient was transferred to [facility] for possible PCI versus CABG. As per discharge summary at [facility] patient preferred PCI. Patient underwent left heart cath with right radial access and s/p PCI to ostial LAD. Patient was deemed stable for discharge and discharged on aspirin to be continued for 1 week along with Plavix and Eliquis. The Plavix and Eliquis should be continued for at least 1 year. But patient says since he had a cardiac cath twice in the same right radial region is in a lot of pain there. Some erythema is noted.Pain with mov ement of the right hand which prompted him to come to the ER. Denies any fevers. No other complaints. Denies any chest pain or shortness of breath. No nausea. No cough. No headache. No abdominal pain. Normal bowel and bladder movements. No blood in the stools. Hemodynamically stable. Past medical history. As mentioned above Past surgical history. Cardiac cath s/p and placement Social history. . Quit smoking in 2022 Alcohol. Drinks 6-7 beers nightly Family history. Father had prostate cancer. Diabetes. Hypertension. Mother had diabetes. Hypertension. Sister has hypertension. Breast cancer. Father had stroke. Admission Exam Per Admitting Provider General- Not in distress Head- atraumatic Eyes- PERRL. ENT- oropharynx clear Neck- supple, no JVD. Lungs- clear to auscultation no wheezing or crackles Heart- regular rhythm; no murmur, no gallop. Abdomen- normal bowel sounds, soft, nontender, no distension Extremities- no pretibial edema, right wrist region erythematous and right hand painful movements Neuro- alert, oriented x 3; PERRL, no facial palsy; no dysarthria; moves extremities. Principal Diagnosis R wrist pain s/p cardiac cath. 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 poss. cellulitis. Discharge Exam General- Not in distress Head- atraumatic Eyes- PERRL. ENT- oropharynx clear Neck- supple, no JVD. Lungs- clear to auscultation no wheezing or crackles Heart- regular rhythm; no murmur, no gallop. Abdomen- normal bowel sounds, soft, nontender, no distension Extremities- no pretibial edema, right wrist hand and forearm erythematous and edematous and painful movements Neuro- alert, oriented x 3; PERRL, no facial palsy; no dysarthria; moves extremities. Discharge Data Allergies Allergy/AdvReac Type Severity Reaction Status Date / Time No Known Allergies Allergy Unverified 01/26/23 09:07 Consultations 02/02/23 00:12 ED Decision to Admit Stat 02/02/23 10:54 Consult Cardiology Routine Ordered Studies 02/01/23 21:48 US venous doppler UE RT Urgent FINDINGS: Deep veins: Unremarkable. No DVT in the internal jugular, subclavian, axillary, or brachial veins. The veins demonstrate normal color flow, are normally compressible, with normal phasic flow and/or augmentation response. Superficial veins: Unremarkable. No thrombus in the visualized basilic and cephalic veins. Soft tissues: Mild edema in the soft tissues over the right wrist surrounding but appears to be a musculotendinous junction. Consider tenosynovitis or cellulitis. Lymph nodes: There is a 6 mm short axis diameter lymph node in the region of interest labeled right wrist. IMPRESSION: 1. Mild edema in the soft tissues over the right wrist surrounding but appears to be a musculotendinous junction. Consider tenosynovitis or cellulitis. 2. There is a 6 mm short axis diameter lymph node in the region of interest labeled right wrist. 3. No venous thrombosis is seen within the right upper extremity. 02/02/23 12:57 US arterial duplex UE RT Stat FINDINGS: There is again noted mild edema within the soft tissues of the right wrist. There is thickening and mild edema surrounding a tendon within the wrist. This raises the possibility of a tendinitis/tenosynovitis. The ulnar artery demonstrates normal waveforms and velocities. The proximal to mid right radial artery demonstrates normal velocities and waveforms. Focal increased peak systolic velocity within the distal right radius artery near the wrist measuring up to 150 cm/s. This is best seen image 14. This is consistent with a focal area of hemodynamically significant stenosis. However, no evidence for arterial occlusion. IMPRESSION: 1. Focal increased peak systolic velocity within the distal right radius artery near the wrist measuring up to 150 cm/s. This is consistent with a focal area of hemodynamically significant stenosis. However, no evidence for arterial occlusion. 2. There is again noted mild edema within the soft tissues of the right wrist. There is thickening and mild edema surrounding a tendon within the wrist. This raises the possibility of a tendinitis/tenosynovitis. Hospital Course (1) Cellulitis of arm, right: 62-year-old male with past med significant for prediabetes, CAD s/p stent, paroxysmal atrial fibrillation, GERD comes because of severe pain in the right wrist and painful movements of the right hand on which recently had a cardiac cath done. Right wrist pain, edema, erythema Possible tenosynovitis or possible cellulitis of the right arm per ultrasound Arterial doppler also done - c/w radial artery stenosis but no occlusion Started on Empiric Rocephin- which was continued Pain control Orthopedics and Cardiology consulted Discussed in detail w/ cardiology and pt will be transferred to [facility] for further evaluation and care. History of CAD s/p stent Continue aspirin, Plavix, statin, and beta-jodi History of A-fib On Eliquis and Coreg (seem as pt was not taking eliquis at home, received dose here in the hospital) Hyperlipidemia On statin Hypertension On Coreg, lisinopril and amlodipine GERD Protonix Total Time Total Time Spent Total Time Spent (In Minutes): 40 Discharge Plan Discharge Items Patient Disposition: Transfer Acute Care Hospital Reason For Visit: RIGHT WRIST PAIN, RECENT CARDIAC CATH Discharge Diagnosis: R wrist pain s/p cardiac cath. 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 poss. cellulitis. Condition on Discharge: Good Activity: Per Instructions section Non-emergency contact: Specialist and Associate Pastor Call non-emergency contact if: you have any medication questions and your symptoms worsen Follow-up/Referrals: Vicky Jordan DO [Primary Care Provider] - Diet: Carb Consistent or DM2 and Heart Healthy Addtl Attending Provider Instructions: Patient presents with right wrist pain and edema after undergoing cardiac cath recently. After discussing in detail with cardiology, pt will be transferred to tertiary center ([facility]) for further evaluation and treatment. Pending Studies at Discharge: No Stand-Alone Forms: My [facility] Skilled Items Patient informed of condition?: Yes DNR: No Discharge Level of Care: Other Communicable Disease: No Discharge Prognosis: Other Lines: Peripheral IV Urinary Catheter: No Medications and DC Order Prescriptions: Continued atorvastatin 80 mg tablet 80 mg PO DAILY carvedilol 6.25 mg tablet 6.25 mg PO BID clopidogrel 75 mg tablet 75 mg PO DAILY amlodipine 5 mg tablet 5 mg PO DAILY pantoprazole 20 mg tablet,delayed release (DR/EC) 20 mg PO BID nitroglycerin 0.4 mg tablet, sublingual 0.4 mg sublingual UD PRN (Reason: Chest Pain) Rx Instructions: q 5min prn chest pain x 3 lisinopril 5 mg tablet 5 mg PO DAILY Eliquis 5 mg tablet 5 mg PO BID Discharge Orders: Discharge Order (Routine); Ordered 02/02/23 Ordered By: Tres Galindo Admission Data Admit Date/Time: 02/02/23 03:24 Attending Provider: Tres Galindo Admit Provider: Lavon Hunt Primary Care Provider: Vicky Jordan Other Providers: Lavon Hunt; Armando Barry
[2023-02-02] MEDS ORDERED: ACETAMINOPHEN 1,000 MG/100 ML VIAL IV STA (18:10)
[2023-02-02] MEDS ORDERED: cefTRIAXone SODIUM 1,000 MG in DEXTROSE 5 % MINI-B 50 ML IV SCH (22:00)
[2023-02-03] MEDS ORDERED: cefTRIAXone SODIUM 2,000 MG in DEXTROSE 5% MINI-B 100 ML IV SCH (05:00)
--- NOTE | 2023-02-03 08:22 | Electrocardiogram Report ---
Test Reason : Blood Pressure : / mmHG Vent. Rate : 056 BPM Atrial Rate : 056 BPM P-R Int : 142 ms QRS Dur : 088 ms QT Int : 412 ms P-R-T Axes : 038 032 041 degrees QTc Int : 397 ms Poor data quality, interpretation may be adversely affected Sinus bradycardia with occasional Premature ventricular complexes Otherwise normal ECG When compared with ECG of 26-AUG-2020 05:34, Premature ventricular complexes are now Present Confirmed by Jaime Irvin ([id number]) on 02/03/2023 8:21:44 AM Referred By: REFERRED SELF Confirmed By:Jaime Irvin
--- NOTE | 2023-02-06 14:06 | Coding Query ---
CODING QUERY To promote full compliance with coding requirements relating to patient care, provider participation is requested in all cases of training systems officer uncertainty. Please assist us with the question(s) below: Coding Question(s): There is documentation of recent Cardiac Catheterizations. Please specify below, in your clinical opinion, regarding the following diagnoses documented in the record to clarify if they are or are not related to the Cardiac Catheterization(s). ( ) Right Wrist Pain s/p Cardiac Cath: ( x) most likely postoperative pain ( ) most likely not postoperative pain ( ) Radial Artery Stenosis: ( x ) most likely Postoperative Complication of Cardiac Catheterization ( ) Not Postoperative Complication of Cardiac Catheterization ( ) Possible Cellulitis: (x ) most likely Postoperative Complication of Cardiac Catheterization ( ) Not Postoperative Complication of Cardiac Catheterization ( ) Possible Tendinitis/Tenosynovitis: ( x) most likely Postoperative Complication of Cardiac Catheterization ( ) Not Postoperative Complication of Cardiac Catheterization ( ) Hematoma of Right Forearm (documented on ER and on Cardiology Consultation, not on the Discharge Summary: ( x ) most likely Postoperative Complication of Cardiac Catheterization ( ) Not Postoperative Complication of Cardiac Catheterization ( ) Ruled-Out Physician's Response(s): Thank you Grecia Mullins Principal Diagnosis: "that condition established after study, to be chiefly responsible for occasioning the admission of the patient to the hospital for care." Co-Existing Principal Diagnosis: "when two or more diagnoses equally meet the criteria for principal diagnosis as determined by the circumstances of admission, diagnostic work up, and/or therapy provided, and the Alphabetic Index, Tabular List, or another coding guideline does not provide sequencing direction, any one of the diagnoses may be sequenced first." "When the physician has documented what appears to be a current diagnosis in the body of the record, but has not included the diagnosis in the final diagnostic statement, the physician should be asked whether the diagnosis should be added." (Source Coding [facility] 2 QTR90. p3-4) EUGENIO
== END 2023-02-02 18:39 | disposition short-term general hospital (02) | DRG 863 ==
LOC: ED 21:29 → EDINP 02-02 03:24